=== PATIENT | male | born 1960 | race Caucasian/White ===

== ENCOUNTER 2020-03-19 16:50 | Inpatient (IN) | payer SELFPAY ==
[~2020-03-19] VITALS: Ht 182.9 cm; Wt 104.3 kg
[~2020-03-19 16:50] MED LIST: LISINOPRIL2.5 MG PO; METOPROLOL SUCC50 MG PO; METOPROLOL TART50 MG PO; NORCO 10MG-325MG1 EA PO; SOMA350 MG PO
--- OUTSIDE RECORDS SUMMARY | 2020-03-19 16:52 | XMS REPORT ---
Author Author [facility] Organization [facility] Address Unknown Phone Unavailable Care Team Providers Care Rn Clinical Trials Name Role Phone Unavailable Unavailable Payers Payer Name Policy Type Policy Number Effective Date Expiration D ate Problems This patient has no known problems. Allergies, Adverse Reactions, Alerts Allergy Name Allergy Type Status Severity Reaction(s) Onset Date Inacti ve Date Treating Clinician Comments No Known Allergies DA Active U 2015-04-18 00:00:00 Medications This patient has no known medications. Results Test Description Test Time Test Comments Text Results Atomic Results Result Comments - CT L-SPINE W/O CONTRAST 2019-12-16 10:46:00 Name: CAROL TRIMBLE [facility] : 1960 Age/S: 59 / M [address] [facility] Unit #: [id number] Loc: [place] [address] Phys: Sunil Pedro MD Acct: [id number] Dis Date: Status: REG ER PHONE #: [phone] Exam Date: 12/16/2019 0955 FAX #: [phone] Reason: trauma, pain EXAMS: CPT CODE: [id number] CT L-SPINE W/O CONTRAST 73181 HISTORY: trauma, pain TECHNIQUE: 2.[address] of the lumbar spine with coronal and sagittal reformatting. Automated exposure control for dose reduction. COMPARISON: None FINDINGS: No acute fracture. No subluxation. Vertebral body alignment is satisfactory. Vertebral body heights are preserved. Intervertebral disc heights are preserved. Small vertebral body osteophytes are seen throughout the visualized spine. No prevertebral or paraspinal soft tissue abnormality. Prior cholecystectomy. Mild calcifications are present in the abdominal aorta and iliac arteries T12-L1: No disc bulge or protrusion. No cental canal or foraminal stenosis L1-L2: No disc bulge or protrusion. No cental canal or foraminal stenosis L2-L3: No disc bulge or protrusion. No cental canal or foraminal stenosis L3-L4: No disc bulge or protrusion. No cental canal or foraminal stenosis L4-L5: No disc bulge or protrusion. No cental canal or foraminal stenosis L5-S1: No disc bulge or protrusion. No cental canal or foraminal stenosis IMPRESSION: Mild degenerative changes of the lumbar spine but no fracture or malalignment or significant foraminal or central canal stenosis. Location: [facility] PAGE 1 Signed Report (CONTINUED) Name: CAROL TRIMBLE [facility] : 1960 Age/S: 59 / M [address] [facility] Unit #: [id number] Loc: [place] [address] Phys: Sunil Pedro MD Acct: [id number] Dis Date: Status: REG ER PHONE #: [phone] Exam Date: 12/16/2019 0955 FAX #: [phone] Reason: trauma, pain EXAMS: CPT CODE: [id number] CT L-SPINE W/O CONTRAST 04199 <Continued> at 1046 Reported and signed by: Dariusz Neal MD CC: Sunil Pedro MD; Cheryl Armijo Technologist:KASIE FERNANDES RT(R),CT CTDI: DLP: Trnscb Date/Time: 12/16/2019 (1046) [email or web address] Orig Print D/T: S: 12/16/2019 (3184) PAGE 2 Signed Report
[2020-03-19] MEDS ORDERED: SODIUM CHLORIDE 0.9% 1000ML 1,000 ML IV STA (17:02)
[2020-03-19] MEDS ORDERED: ONDANSETRON HCL INJ 2MG/ML 2ML 2 MG/ML VIAL IV STA (17:02)
[2020-03-19] MEDS ORDERED: HYDRALAZINE HCL 20 MG/ML VIAL IV STA (17:29)
[2020-03-19] MEDS ORDERED: HYDROCODONE/APAP 10MG-325MG TAB PO ONE (17:30)
[2020-03-19] MEDS: PIPER-TAZ 3.375 GM 50 ML IV SCH ×2 (17:41→23:30)
[2020-03-19 17:45] LABS: BASOPHILS # (AUTO) 0.1 (0.0-0.1); BASOPHILS % 1.5 % (0.0-1.0); EOSINOPHILS # (AUTO) 0.2 (0.0-0.4); HEMOGLOBIN 16.5 g/dL (14.0-18.0); LYMPHOCYTES # (AUTO) 1.2 (1.0-3.2); LYMPHOCYTES % 13.7 % (18.0-39.1); MEAN CORPUSCULAR HEMOGLOBIN 30.8 pg (28-32); MEAN CORPUSCULAR HGB CONC 33.7 g/dL (31-35); MEAN CORPUSCULAR VOLUME 91.4 fL (81-99); MONOCYTES # (AUTO) 0.6 (0.2-0.8); MONOCYTES % 6.4 % (4.4-11.3); NEUTROPHILS # (AUTO) 6.8 (2.1-6.9); NEUTROPHILS % 76.1 % (38.7-80.0); PLATELET COUNT 135 x10e3/uL (140-360); RED BLOOD COUNT 5.36 x10e6/uL (4.3-5.7); RED CELL DISTRIBUTION WIDTH 14.7 % (11.7-14.4)
[2020-03-19] MEDS ORDERED: TETANUS/DIPHTHERIA TOX ADULT 0.5 ML SYR IM ONE (17:45)
[2020-03-19 17:48] LABS: CLARITY,URINE SL CLOUDY (CLEAR); COLOR,URINE ORANGE (YELLOW)
[2020-03-19 17:52] LABS: BILIRUBIN,URINE MODERATE (NEGATIVE); KETONES,URINE NEGATIVE (NEGATIVE); LEUKOCYTE ESTERASE ,URINE NEGATIVE (NEGATIVE); NITRITE,URINE POSITIVE (NEGATIVE); PROTEIN,URINE DIPSTICK 1+ (NEGATIVE); URINE UROBILINOGEN 0.2 mg/dL (0.2 - 1)
[2020-03-19 17:53] LABS: AMORPHOUS SEDIMENT,URINE FEW (FEW); AMPHETAMINES SCREEN,URINE POSITIVE (NEGATIVE); BACTERIA,URINE MODERATE /HPF; BENZODIAZEPINES SCREEN,URINE POSITIVE (NEGATIVE); EPITHELIAL CELLS,URINE FEW /LPF; MUCUS,URINE MODERATE (RARE); PHENCYCLIDINE SCREEN,URINE NEGATIVE (NEGATIVE); WBC,URINE (MAN) 0-5 /HPF (0-5)
[2020-03-19 18:02] LABS: INR 1.15; PROTHROMBIN TIME 15.4 seconds (11.9-14.5)
[2020-03-19 18:03] LABS: PARTIAL THROMBOPLASTIN TIME 32.6 seconds (23.8-35.5)
[2020-03-19 18:05] LABS: ALANINE AMINOTRANSFERASE 31 IU/L (0-55); ALBUMIN/GLOBULIN RATIO 0.6 (0.8-2.0); ALKALINE PHOSPHATASE 453 IU/L (40-150); ANION GAP 12.3 mmol/L (8-16); BLOOD UREA NITROGEN 9 mg/dL (7-26); BUN/CREATININE RATIO 12 (6-25); CALCIUM 9.3 mg/dL (8.4-10.2); CARBON DIOXIDE 24 mmol/L (22-29); CHLORIDE 105 mmol/L (98-107); CREATINE KINASE 73 IU/L (30-200); CREATININE, SERUM 0.77 mg/dL (0.72-1.25); EST GLOMERULAR FILTRATION RATE > 60 ML/MIN (60-); GLUCOSE 113 mg/dL (74-118); POTASSIUM 4.3 mmol/L (3.5-5.1); SODIUM 137 mmol/L (136-145)
--- NOTE | 2020-03-19 18:13 | Diagnostic Imaging Report ---
EXAMINATION: CHEST SINGLE (PORTABLE) COMPARISON: Chest x-ray 10/30/2013 INDICATION: Foot infection ^LE CELLULITIS, O2 SAT 94% SMOKER ^20200319 ^1739 DISCUSSION: Frontal view of the chest obtained at 1744 hours. HEART AND MEDIASTINUM: Stable cardiomegaly. No vascular congestion. LINES: None. LUNGS: The lungs are well inflated and clear. No pneumonia or pulmonary edema. PLEURA: No pleural effusion or pneumothorax. BONES AND SOFT TISSUES: No focal osseous lesion. The soft tissues are normal. IMPRESSION: Stable cardiomegaly. No evidence of CHF. No acute cardiopulmonary process. Signed by: Dr. Hood Garcia MD on 03/19/2020 6:10 PM
[2020-03-19] MEDS ORDERED: ONDANSETRON HCL INJ 2MG/ML 2ML 2 MG/ML VIAL IV PRN (18:15)
[2020-03-19] MEDS ORDERED: HYDROCODONE/APAP 10MG-325MG TAB PO PRN (18:15)
--- NOTE | 2020-03-19 18:19 | Diagnostic Imaging Report ---
Foot complete CPT code: 49876 Indication: infection ^LE CELLULITIS, O2 SAT 94% SMOKER ^20200319 ^0172 Technique: A.P., oblique and lateral views of the left foot obtained. Comparison: none. Findings: Calcaneus is intact with tiny posterior or plantar spur. The midfoot is intact with mild degenerative changes. No evidence of displaced fracture or dislocation involving any of the digits. Hallux valgus. No focal demineralization or periosteal new bone formation. No radiopaque foreign bodies in the soft tissues. IMPRESSION: No radiographic evidence of osteomyelitis. Degenerative changes as described above. Signed by: Dr. Hood Garcia MD on 03/19/2020 6:16 PM
[2020-03-19] MEDS ORDERED: VANCOMYCIN 1GM/NS 250 ML 250 ML IV ONE (18:30)
[2020-03-19] MEDS: SODIUM CHLORIDE 0.9% 1000ML 1,000 ML IV SCH (18:58)
[2020-03-19 20:30] VITALS: BP 188/101
--- NOTE | 2020-03-19 20:30 | NUR ---
Pt arrived from ED as a new admit with diagnosis of left foot cellulitis, drug abuse, and elevated bilirubin. Pt alert and oriented x3. Ambulatory in room prn. Notable dried skin tears and scratches on left buck and left foot (dorsal side). Pt c/o frequent pain on left foot. Pt will be medicated accordingly. BP elevated (188/101) and will be medicate with prn Hydralazine. On IVF (NS at 100ml/hr) and IV antibiotic. Call rose within reach. Will monitor closely.
[2020-03-19] MEDS: HYDRALAZINE HCL 20 MG/ML VIAL IV PRN (20:35)
[2020-03-19 21:00] VITALS: BP 188/101
[2020-03-19 22:00] VITALS: BP 188/101
[2020-03-19] MEDS ORDERED: ACETAMINOPHEN 325 MG TAB PO PRN (22:00)
[2020-03-19] MEDS: HYDROCODONE/APAP 10MG-325MG TAB PO PRN (22:09)
[2020-03-19] MEDS ORDERED: CIPRO500 MG PO (23:19)
[2020-03-19] MEDS ORDERED: ASPIRIN81 MG PO (23:19)
[2020-03-19] MEDS ORDERED: IBUPROFEN400 MG PO (23:19)
[2020-03-19] MEDS ORDERED: LISINOPRIL10 MG PO (23:19)
[2020-03-19] MEDS ORDERED: DOXYCYCLINE HY100 MG PO (23:19)
[2020-03-20] VITALS (7 sets, daily range): BP systolic 130–161; BP diastolic 73–89
[2020-03-20] MEDS: SODIUM CHLORIDE 0.9% 1000ML 1,000 ML IV SCH (04:15)
[2020-03-20] MEDS: HYDROCODONE/APAP 10MG-325MG TAB PO PRN ×4 (04:22→21:20)
[2020-03-20] MEDS: VANCOMYCIN 1GM/NS 250 ML 250 ML IV SCH ×2 (04:25→16:36)
[2020-03-20] MEDS: PIPER-TAZ 3.375 GM 50 ML IV SCH (05:35)
[2020-03-20 06:51] LABS: BASOPHILS # (AUTO) 0.1 (0.0-0.1); EOSINOPHILS # (AUTO) 0.2 (0.0-0.4); EOSINOPHILS % 2.6 % (0.0-6.0); HEMATOCRIT 43.6 % (38.2-49.6); HEMOGLOBIN 14.5 g/dL (14.0-18.0); LYMPHOCYTES # (AUTO) 1.4 (1.0-3.2); LYMPHOCYTES % 17.1 % (18.0-39.1); MEAN CORPUSCULAR HEMOGLOBIN 30.9 pg (28-32); MEAN CORPUSCULAR HGB CONC 33.3 g/dL (31-35); MONOCYTES # (AUTO) 0.7 (0.2-0.8); MONOCYTES % 9.3 % (4.4-11.3); NEUTROPHILS # (AUTO) 5.5 (2.1-6.9); NEUTROPHILS % 69.6 % (38.7-80.0); PLATELET COUNT 107 x10e3/uL (140-360); RED BLOOD COUNT 4.69 x10e6/uL (4.3-5.7); RED CELL DISTRIBUTION WIDTH 14.9 % (11.7-14.4)
[2020-03-20 07:16] LABS: ALANINE AMINOTRANSFERASE 27 IU/L (0-55); ALBUMIN 2.4 g/dL (3.5-5.0); ALBUMIN/GLOBULIN RATIO 0.6 (0.8-2.0); ALKALINE PHOSPHATASE 359 IU/L (40-150); ANION GAP 9.8 mmol/L (8-16); BLOOD UREA NITROGEN 11 mg/dL (7-26); BUN/CREATININE RATIO 15 (6-25); CALCIUM 8.2 mg/dL (8.4-10.2); CARBON DIOXIDE 23 mmol/L (22-29); CHLORIDE 109 mmol/L (98-107); CREATININE, SERUM 0.72 mg/dL (0.72-1.25); EST GLOMERULAR FILTRATION RATE > 60 ML/MIN (60-); GLUCOSE 92 mg/dL (74-118); POTASSIUM 3.8 mmol/L (3.5-5.1); SODIUM 138 mmol/L (136-145)
[2020-03-20 07:40] LABS: CREATINE KINASE MB 2.6 ng/mL (0-5.0)
[2020-03-20] MEDS ORDERED: CARISOPRODOL 350 MG TAB PO PRN (10:00)
--- NOTE | 2020-03-20 10:36 | History and Physical ---
CHIEF COMPLAINT: Worsening left foot pain. HISTORY OF PRESENT ILLNESS: This is a 59-year-old white man, who presents to [facility] with 1-week history of worsening left foot redness and pain. The patient apparently was treated as an outpatient with oral ciprofloxacin, doxycycline by his primary care physician, namely Dr. Cheryl Renae. The patient states he did not improve with the outpatient oral antibiotics. The patient does state that ibuprofen 800 mg caused him experienced significant amount of dyspepsia and abdominal pain. In the emergency room, the patient was found to have an elevated total bilirubin of 2.3 with an AST and ALT of 72 and 31 respectively and alkaline phosphatase level of 453. The patient has a known history of alcoholic liver cirrhosis. The patient states that abstinence from alcohol use since 2008. He does smoke tobacco. Urine toxicology in the emergency room was positive for amphetamines and benzodiazepines. Urinalysis in the emergency room reveals slightly cloudy orange urine, 1+ protein, positive nitrite, moderate bacteria, moderate mucus, but only 0-5 white blood cells per high-power field. The patient's white blood cell count on admission was 8,800 with 76% segmented neutrophils. White blood cell count today 7,900 with 69% segmented neutrophils. The patient had a chest film performed in the emergency room, which showed cardiomegaly, otherwise unremarkable. The patient had a left foot x-ray performed in the emergency room, which did not reveal any evidence of osteomyelitis, but did reveal degenerative changes. Most notably, was found to have significant amount of hallux valgus. REVIEW OF SYSTEMS: GENERAL: Weight is stable. No fever or chills. HEENT: No headaches. No visual changes. CARDIOVASCULAR/RESPIRATORY: No chest pain. No short of breath, or cough. GI: The patient has cirrhosis. Denies abdominal pain, except when took ibuprofen. Denies any melena or hematochezia. : States that he urinates frequently, particularly at night, but denies any UTI symptoms. He notes urinary hesitancy with weak urinary stream. NEUROMUSCULAR: Complains extreme pain in the left foot particularly the left metatarsal head area. ALLERGIES: NO KNOWN DRUG ALLERGIES. PAST MEDICAL HISTORY: 1. Tobacco abuse. 2. Alcoholism (abstinence since 2008). 3. Alcoholic liver cirrhosis. 4. Hypertensive heart disease. 5. Substance abuse. 6. Chronic diastolic congestive heart failure. 7. Chronic back pain. MEDICATIONS: 1. Aspirin 81 mg daily. 2. Carisoprodol 350 mg t.i.d. p.r.n., back spasms. 3. Ciprofloxacin 500 mg b.i.d. 4. Doxycycline 100 b.i.d. 5. Ibuprofen 800 mg q.4 hours p.r.n. pain. (The patient cannot tolerate this medication). 6. Lisinopril 20 mg daily. 7. Metoprolol tartrate 50 mg b.i.d. FAMILY HISTORY: Noncontributory. SOCIAL HISTORY: and lives with his . 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 Smokes tobacco. The patient was a heavy alcohol drinker, but abstinent since in 2008. SURGICAL HISTORY: 1. Exploratory laparotomy because of perforated appendicitis causing peritonitis. 2. Laparoscopic cholecystectomy. PHYSICAL EXAMINATION: GENERAL: He is awake, alert, and fully oriented. He is pleasant. VITAL SIGNS: Height is 6 feet 0 inches, weight is 230 pounds, BMI 31. Blood pressure is 130/84, pulse 58, respiratory rate 18, temperature 98.3, and oxygen saturation 98% on room air. INTEGUMENT: Skin is warm and dry. No pallor, jaundice, or diaphoresis. HEENT: Anicteric sclerae. Moist mucous membranes. The patient has a hoarse smoker's voice. NECK: Supple. CARDIOVASCULAR: Distant heart sounds. Regular rate and rhythm. LUNGS: No rales, no rhonchi, no wheezes. ABDOMEN: Obese. Benign. EXTREMITIES: The patient has obvious bunions in the bilateral feet significant amount. The patient has pronounced left hallux valgus. His left foot is erythematous. It is warm and extremely tender to touch. NEUROLOGICAL: Intact. No gross focal deficits appreciated. DIAGNOSES: 1. Left foot cellulitis. 2. Left 1st metatarsal head inflammation, possible gout. 3. Alcoholic liver cirrhosis. 4. Chronic alcoholism (abstinence since 2008). 5. Tobacco abuse. 6. Chronic diastolic congestive heart failure. 7. Hypertensive heart disease. PLAN: 1. Highly recommend tobacco cessation. 2. Pain control. 3. We will check serum uric acid level since the patient may have acute gouty arthritis. 4. Discontinue telemetry. 5. Discontinue intravenous fluids. 6. Gentle pain control with oral hydrocodone. 7. Continue intravenous antibiotics at this time. I spent 45 minutes in the care of this patient. MD ANALI Angeles/MARCO /[id number] IRINEO
[2020-03-20] MEDS: CEFTRIAXONE SOD 1 GM/NS 50 ML 50 ML IV SCH ×2 (10:38→21:20)
--- NOTE | 2020-03-20 11:47 | Diagnostic Imaging Report ---
EXAM: Right Upper Quadrant Ultrasound INDICATION: ^OBSTRUCTIVE JAUNDICE ^20200320 ^1040 ^Y COMPARISON: None. TECHNIQUE: Transverse and longitudinal images of the right upper abdomen were obtained. FINDINGS: Liver: Size: 13.6 cm in the right midclavicular line, normal Appearance: Coarse echotexture, nodular contour Mass: No focal masses Gallbladder: Surgically absent. Bile Ducts: Intrahepatic Ducts: No dilatation Extrahepatic Ducts: Common bile duct measures 0.6 cm, borderline dilatation, likely due to postcholecystectomy reservoir effect. Pancreas: Not well-visualized. Right Kidney: Size: 11.3 cm Echogenicity: Normal Parenchymal thickness: Normal Collecting system: No hydronephrosis Stones: None Cyst/Mass: None Vessels: Aorta: Limited visualization. Inferior Vena Cava: Limited visualization. Main Portal Vein: 1 cm, normal size with hepatopetal flow. Free Fluid: Trace perihepatic ascites. IMPRESSION: Cirrhotic liver with trace perihepatic ascites. Status post cholecystectomy. Borderline dilatation of common bile duct, probably due to postcholecystectomy reservoir effect. Signed by: Dr. Naseem Hill MD on 03/20/2020 11:44 AM
--- NOTE | 2020-03-20 13:16 | NUR ---
PROVIDED SELF PAY PACKET WITH COMM[employer] WHICH INCLUDES GOLD CARD ASSISTANCE THROUGH [facility] FOR [facility]
[2020-03-20] MEDS: METOPROLOL TARTRATE 50 MG TAB PO SCH (16:36)
[2020-03-20 16:43] LABS: CREATINE KINASE MB 3.2 ng/mL (0-5.0)
[2020-03-21] VITALS (9 sets, daily range): BP systolic 153–186; BP diastolic 73–91
[2020-03-21] MEDS ORDERED: SODIUM CHLORIDE 0.9% 250ML 250 ML ONE (04:28)
[2020-03-21] MEDS: VANCOMYCIN 1GM/NS 250 ML 250 ML IV SCH ×2 (04:31→17:40)
[2020-03-21] MEDS: HYDROCODONE/APAP 10MG-325MG TAB PO PRN ×3 (04:32→19:52)
--- NOTE | 2020-03-21 07:06 | NUR ---
BEDSIDE SHIFT REPORT RECEIVED FROM PM NURSE. PT AWAKE, ALERT, ORIENTED, NO SIGNS OF DISTRESS.
[2020-03-21 07:08] LABS: BASOPHILS # (AUTO) 0.1 (0.0-0.1); BASOPHILS % 1.7 % (0.0-1.0); EOSINOPHILS # (AUTO) 0.2 (0.0-0.4); HEMATOCRIT 44.9 % (38.2-49.6); HEMOGLOBIN 14.9 g/dL (14.0-18.0); LYMPHOCYTES # (AUTO) 1.3 (1.0-3.2); LYMPHOCYTES % 26.5 % (18.0-39.1); MEAN CORPUSCULAR HEMOGLOBIN 30.8 pg (28-32); MEAN CORPUSCULAR HGB CONC 33.2 g/dL (31-35); MEAN CORPUSCULAR VOLUME 92.8 fL (81-99); MONOCYTES # (AUTO) 0.4 (0.2-0.8); NEUTROPHILS # (AUTO) 2.8 (2.1-6.9); NEUTROPHILS % 58.6 % (38.7-80.0); PLATELET COUNT 75 x10e3/uL (140-360); RED BLOOD COUNT 4.84 x10e6/uL (4.3-5.7); RED CELL DISTRIBUTION WIDTH 14.8 % (11.7-14.4)
[2020-03-21 07:09] LABS: ALANINE AMINOTRANSFERASE 28 IU/L (0-55); ALBUMIN 2.5 g/dL (3.5-5.0); ALBUMIN/GLOBULIN RATIO 0.6 (0.8-2.0); ALKALINE PHOSPHATASE 339 IU/L (40-150); BLOOD UREA NITROGEN 12 mg/dL (7-26); BUN/CREATININE RATIO 19 (6-25); CALCIUM 8.5 mg/dL (8.4-10.2); CARBON DIOXIDE 22 mmol/L (22-29); CHLORIDE 109 mmol/L (98-107); CREATININE, SERUM 0.63 mg/dL (0.72-1.25); EST GLOMERULAR FILTRATION RATE > 60 ML/MIN (60-); GLUCOSE 82 mg/dL (74-118); SODIUM 138 mmol/L (136-145)
[2020-03-21 07:52] LABS: PLATELET MORPHOLOGY COMMENT NORMAL; RBC MORPHOLOGY COMMENT NORMAL
[2020-03-21 07:53] LABS: PLATELET ESTIMATE MODERATELY DECREASED
[2020-03-21] MEDS: ASPIRIN 81 MG CHEW TAB PO SCH (08:43)
[2020-03-21] MEDS: LISINOPRIL 10 MG TAB PO SCH (08:44)
[2020-03-21] MEDS: METOPROLOL TARTRATE 50 MG TAB PO SCH ×2 (08:44→17:00)
[2020-03-21] MEDS: CEFTRIAXONE SOD 1 GM/NS 50 ML 50 ML IV SCH ×2 (08:45→21:10)
--- NOTE | 2020-03-21 09:55 | Progress Note ---
DATE: 03/21/2020 CHIEF COMPLAINT/HISTORY OF PRESENT ILLNESS: This is a 59-year-old white man, whose primary treating diagnosis is a left foot cellulitis. Yesterday, the patient states his left foot is less painful and swollen. Yesterday, the patient was found to have a serum uric acid level of 4.1 mg/dL. Today, the patient's AST and ALT were 61 and 28 respectively. The patient's alkaline phosphatase is now 339, which is lowering. The patient's total bilirubin is now 1.8, it got as high as 2.8. The patient's albumin was 2.5. The patient underwent a liver ultrasound yesterday, which revealed a cirrhotic liver with trace perihepatic ascites. REVIEW OF SYSTEMS: As per HPI. PHYSICAL EXAMINATION: GENERAL: He is awake, alert, and fully oriented, in no distress, very pleasant, cooperative to exam. VITAL SIGNS: Height 6 feet 0 inches, weight is 230 pounds, BMI 31. Blood pressure is 160/80, pulse 52, respiratory rate, temperature 98.0, and oxygen saturation 97% on room air. INTEGUMENT: Skin is warm and dry. No pallor, jaundice, or diaphoresis. HEENT: Anterior sclerae with moist mucous membranes. NECK: Supple CARDIOVASCULAR: Distant heart sounds. Bradycardic rate a regular rhythm. LUNGS: No rales. No rhonchi. ABDOMEN: Benign. Normal bowel sounds. Nontender. EXTREMITIES: Patient has obvious bunions in the bilateral feet. The patient has pronounced left valgus hallux. His left foot is less erythematous and tender to touch today. The patient has a significant amount of desquamating scale on the dorsal aspect of his left foot. NEUROLOGIC: Intact. No gross focal deficits appreciated. DIAGNOSES: 1. Left foot cellulitis, resolving. 2. Alcoholic liver cirrhosis. 3. Leukopenia and pancytopenia secondary to liver cirrhosis. 4. Chronic alcoholism (abstinence since 2008). 5. Tobacco abuse. 6. Chronic diastolic congestive heart failure. 7. Hypertensive heart disease. 8. Urinary tract infection/prostatitis. PLAN: 1. Continue intravenous vancomycin and ceftriaxone for patient's left foot cellulitis. 2. Continue intravenous ceftriaxone for patient's urinary tract infection. 3. Commend patient for his willingness not to resume alcohol drinking. 4. Highly recommend tobacco cessation. 5. We will order a nicotine patch today to tailor helper in patient's tobacco cessation. 6. We will order ammonia lactate 12% lotion to be applied to the patient's left foot twice a day. 7. I spent 30 minutes in the care of this patient. 8. Discharge planning for tomorrow Sunday, march 22, 2020. MD ANALI Angeles/MARCO /[id number] MTDD
[2020-03-21] MEDS: AMMONIUM LACTATE 12% LOTION 225GM BTL TOP SCH ×2 (10:45→17:40)
[2020-03-21] MEDS: NICOTINE 21 MG/EA PATCH TOP SCH (10:45)
[2020-03-21] MEDS ORDERED: ONDANSETRON HCL 4 MG ORAL DISINTEGRATING TAB PO PRN (14:30)
--- NOTE | 2020-03-21 17:08 | NUR ---
PT'S HR NOTED TO STILL BE IN THE 40'S; PAGING DR. XIE REGARDING PT'S CURRENT DOSE OF METOPROLOL.
--- NOTE | 2020-03-21 17:26 | NUR ---
CALLBACK FROM DR. XIE. HE STATES HOLD PT'S DOSE OF METOPROLOL TODAY AND TOMORROW CHANGE PT'S DOSE FROM BID TO QD.
--- NOTE | 2020-03-21 19:00 | NUR ---
RECEIVED PATIENT IN BEDSIDE REPORT. PATIENT RESTING IN BED AT THIS TIME. PAIN REPORTED. 04/21, WILL MEDICATE. NO S&S OF DISTRESS NOTED. BED LOCKED IN LOWEST POSITION, SIDE RAILS UPX2, CALL LIGHT IN REACH.
--- NOTE | 2020-03-21 21:58 | NUR ---
R AC 18G IV NOTED TO BE TENDER AND LEAKING. REMOVED AT THIS TIME. CATHETER TIP INTACT. PRESSURE DRESSING APPLIED. WARM COMPRESS APPLIED FOR TENDERNESS.
[2020-03-22] VITALS (8 sets, daily range): BP systolic 157–181; BP diastolic 86–96
--- NOTE | 2020-03-22 04:54 | NUR ---
NEW IV OBTAINED TO R UA, 22G. UNABLE TO DRAW BLOOD FOR VANC TROUGH AND AM LABS. 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
[2020-03-22 05:31] LABS: BASOPHILS # (AUTO) 0.1 (0.0-0.1); BASOPHILS % 1.6 % (0.0-1.0); EOSINOPHILS # (AUTO) 0.2 (0.0-0.4); EOSINOPHILS % 4.4 % (0.0-6.0); HEMATOCRIT 42.9 % (38.2-49.6); HEMOGLOBIN 14.5 g/dL (14.0-18.0); LYMPHOCYTES # (AUTO) 1.4 (1.0-3.2); LYMPHOCYTES % 27.6 % (18.0-39.1); MEAN CORPUSCULAR HEMOGLOBIN 30.6 pg (28-32); MEAN CORPUSCULAR HGB CONC 33.8 g/dL (31-35); MEAN CORPUSCULAR VOLUME 90.5 fL (81-99); MONOCYTES # (AUTO) 0.6 (0.2-0.8); MONOCYTES % 11.9 % (4.4-11.3); NEUTROPHILS # (AUTO) 2.7 (2.1-6.9); NEUTROPHILS % 54.3 % (38.7-80.0); PLATELET COUNT 82 x10e3/uL (140-360); RED BLOOD COUNT 4.74 x10e6/uL (4.3-5.7); RED CELL DISTRIBUTION WIDTH 14.4 % (11.7-14.4)
[2020-03-22 05:53] LABS: ALANINE AMINOTRANSFERASE 28 IU/L (0-55); ALBUMIN 2.5 g/dL (3.5-5.0); ALBUMIN/GLOBULIN RATIO 0.6 (0.8-2.0); ALKALINE PHOSPHATASE 344 IU/L (40-150); ANION GAP 10.6 mmol/L (8-16); BLOOD UREA NITROGEN 11 mg/dL (7-26); BUN/CREATININE RATIO 16 (6-25); CALCIUM 8.4 mg/dL (8.4-10.2); CARBON DIOXIDE 26 mmol/L (22-29); CHLORIDE 105 mmol/L (98-107); CREATININE, SERUM 0.67 mg/dL (0.72-1.25); EST GLOMERULAR FILTRATION RATE > 60 ML/MIN (60-); GLUCOSE 87 mg/dL (74-118); POTASSIUM 3.6 mmol/L (3.5-5.1); SODIUM 138 mmol/L (136-145)
[2020-03-22] MEDS: HYDRALAZINE HCL 20 MG/ML VIAL IV PRN (05:58)
[2020-03-22] MEDS: VANCOMYCIN 1GM/NS 250 ML 250 ML IV SCH ×2 (06:27→16:00)
[2020-03-22] MEDS ORDERED: SODIUM CHLORIDE 0.9% 250ML 250 ML ONE (06:27)
--- NOTE | 2020-03-22 07:10 | NUR ---
PATIENT IS AWAKE, ALERT, AND IN STABLE CONDITION WITH NO S/S OF RESPIRATORY DISTRESS- NO PAIN VOICED. CALL LIGHT IS WITHIN REACH, PATIENT INSTRUCTED TO CALL FOR ASSISTANCE NEEDED.
[2020-03-22] MEDS: NICOTINE 21 MG/EA PATCH TOP SCH (08:29)
[2020-03-22] MEDS: ASPIRIN 81 MG CHEW TAB PO SCH (08:33)
[2020-03-22] MEDS: LISINOPRIL 10 MG TAB PO SCH (08:34)
[2020-03-22] MEDS: AMMONIUM LACTATE 12% LOTION 225GM BTL TOP SCH ×2 (08:35→16:00)
[2020-03-22] MEDS ORDERED: METOPROLOL TARTRATE 50 MG TAB PO SCH ×2 (09:00→17:00)
[2020-03-22] MEDS: CEFTRIAXONE SOD 1 GM/NS 50 ML 50 ML IV SCH (09:02)
--- NOTE | 2020-03-22 10:02 | NUR ---
Received bedside shift report from nurse. Patient is in stable condition. IV line patent, saline flushed. Call light within reach. Bed in the lowest position.
--- NOTE | 2020-03-22 10:23 | Discharge Summary ---
HOSPITAL COURSE: Mr. Linares is a 59-year-old man with history of alcohol abuse, liver cirrhosis, hypertension, tobacco abuse, and chronic back pain, who was seen in the clinic complaining of left foot edema and erythema with some skin lesion. At that time, he did not want to come to the emergency room, so he was given p.o. antibiotics. Later on, he did not feel good and the pain was worse, so he decided to come to the emergency room. He was seen by Dr. Canada, who was covering for me. He was started on IV antibiotics, wound care. PHYSICAL EXAMINATION: GENERAL: Today, he is awake and alert. He is feeling better. He wants to go home. VITAL SIGNS: Temperature is 97.6, blood pressure 164/89. HEART: Regular rate. LUNGS: Clear to auscultation. ABDOMEN: Soft. EXTREMITIES: In the left lower extremity, the edema went down, the erythema went down. He still has like healing lesion on top of the left foot. Positive also for tinea pedis between his toes. LABORATORY DATA: On the blood work; white count 4.97, hemoglobin 14.5, hematocrit 42.9, potassium 3.6, creatinine 0.67, glucose 87. Pereira virus negative. Toxicology shows amphetamines and benzodiazepines. Urine culture and blood culture so far negative. Liver ultrasound shows cirrhotic liver, status post cholecystectomy. Foot x-ray shows no evidence of osteomyelitis. Chest x-ray shows stable cardiomegaly. No evidence of CHF. ASSESSMENT: 1. Left foot cellulitis. 2. Tinea pedis. 3. Alcohol liver cirrhosis. 4. History of alcohol abuse. 5. Tobacco abuse. 6. Hypertensive heart disease. PLAN: At present time is to recommend tobacco cessation. Continue pain control. Continue IV antibiotics. Continue wound care. Infectious Disease consult with Dr. Mccallum for further recommendation of antibiotics and possible discharge, since the patient wants to go home today. Please see home medication reconciliation list. All this was discussed with the patient. All questions were answered to satisfaction. If he gets clear by Infectious Disease, he may go home on p.o. antibiotics and follow up with me as an outpatient. Cheryl Renae MD ERROL/MARCO /[id number]
--- NOTE | 2020-03-22 16:00 | NUR ---
DR. GARNICA ROUNDING ON PATIENT, CLEARANCE FOR DISCHARGE OBTAINED, PATIENT CAN BE DCD FROM ID STANDPOINT. PRESCRIPTIONS ON CHART.
--- NOTE | 2020-03-22 16:01 | NUR ---
PAGED DR. BARAJAS FOR DC ORDER.
[2020-03-22] MEDS ORDERED: CIPRO500 MG PO (16:10)
[2020-03-22] MEDS ORDERED: DOXYCYCLINE HY100 MG PO (16:10)
--- NOTE | 2020-03-22 16:27 | NUR ---
BP IS 181/91 UPON ASSESSMENT, RE-ASSESSED MANUALLY AND IT WAS 174/92. PATIENT STATES HE TAKES METOPROLOL TWICE A DAY NOT ONCE A DAY. PAGED DR. BARAJAS FOR ORDERS.
--- NOTE | 2020-03-22 16:35 | NUR ---
SPOKE TO DR. BARAJAS, PER MD GIVE SECOND DOSE OF METOPROLOL NOW.
--- NOTE | 2020-03-22 18:30 | NUR ---
RECEIVED DISCHARGE ORDER FROM MD. PATIENT IS IN STABLE CONDITION. IV LINE TO RIGHT UPPER ARM DISCONTINUED WITH TIP INTACT, PRESSURE APPLIED TO SITE, NO BLEEDING NOTED. DISCHARGE TEACHING PROVIDED TO PATIENT, HE VERBALIZED UNDERSTANDING. DISCHARGE FOLDER WITH PAPERWORK AND PRESCRIPTIONS ON HAND. PATIENT ACCOMPANIED TO PRIVATE AUTO VIA WHEELCHAIR BY STAFF.
--- NOTE | 2020-03-22 20:56 | Consultation ---
DATE OF CONSULTATION: REASON FOR CONSULTATION: Mr. Linares comes in with redness of the leg. HISTORY OF PRESENT ILLNESS: This patient who is a 59-year-old, who comes into [facility] with one-week history of worsening left leg redness. He took oral antibiotic without any improvement. He comes in to start IV antibiotic. He is feeling better, but he would like to go home. PAST MEDICAL HISTORY: The patient does have history of smoking, alcoholism that he quit in 2008. Liver cirrhosis, congestive heart failure, heart disease, chronic diastolic heart failure, chronic back pain, and osteoarthritis. PAST SURGICAL HISTORY: As above. He had history of exploratory laparotomy, history of appendicitis, history of cholecystectomy. SOCIAL HISTORY: There is no smoking. Currently, no drug abuse or alcohol abuse. FAMILY HISTORY: Hypertension. HOME MEDICATIONS: Aspirin and ciprofloxacin. REVIEW OF SYSTEMS: HEENT: Negative. PULMONARY: Negative. CARDIAC: Negative. : Negative. LABORATORY DATA: Reviewed. Blood cultures are negative. White count was 4.9, hemoglobin 14. The patient would like to go home. His drug was positive for amphetamine and benzodiazepine. PHYSICAL EXAMINATION: GENERAL: He is currently alert, oriented, does not seem in acute distress. VITAL SIGNS: Stable. Afebrile. HEENT: He is not icteric. NECK: Supple. CHEST: Clear. SKIN: Warm, soft. The foot has significant improvement since yesterday. There is still some redness. The skin seemed to be dry with itching bellamy present. IMPRESSION: 1. cellulitis of the foot, improving. 2. Former drug abuse. 3. History of smoking. 4. History of liver disease. From Infectious Disease point of view, we can switch him to local hydrocortisone, apply twice a day. To discharge home with oral doxycycline and Cipro. Keep elevated, must quit drinking. We will follow. MD VALARIE Hobson/MARCO /[id number]
== END 2020-03-22 18:30 | disposition home or self-care (01) | DRG 603 ==
LOC: ER 16:50 → ERHOLD 18:14 → MED/SURG3 20:53
PROVIDERS: ADMIT Internal Medicine; ATTEND Internal Medicine
DX: L03.116 Cellulitis of left lower limb (principal); N39.0 Urinary tract infection, site not specified; I50.32 Chronic diastolic (congestive) heart failure; F17.210 Nicotine dependence, cigarettes, uncomplicated; M54.9 Dorsalgia, unspecified; Z82.49 Family history of ischemic heart disease and other diseases of the circulatory system; K70.31 Alcoholic cirrhosis of liver with ascites; F10.21 Alcohol dependence, in remission; M20.12 Hallux valgus (acquired), left foot; I11.0 Hypertensive heart disease with heart failure; Z79.82 Long term (current) use of aspirin; Z90.49 Acquired absence of other specified parts of digestive tract; M10.9 Gout, unspecified; M21.612 Bunion of left foot; M21.611 Bunion of right foot; B35.3 Tinea pedis
CPT/HCPCS: 36415; 71045; 76705; 80053; 80202; 80307; 81001; 82550; 82553; 82948; 84484; 84550; 85025; 85610; 85730; 87040; 87086; 87635; 90714; 93005; 99251; 99284; J0360; J0696; J2405; J2543; J3370; J7030; J7050

== ENCOUNTER 2020-07-02 17:34 | Inpatient (IN) | payer SELFPAY ==
[~2020-07-02] VITALS: Ht 182.9 cm; Wt 96.6 kg
[~2020-07-02 17:34] MED LIST changes: +ASPIRIN81 MG PO; +CIPRO500 MG PO; +DOXYCYCLINE HY100 MG PO; +FENTANYL CITRATE/PF 100MCG/2 ML INJ ONE; +IBUPROFEN400 MG PO; +LISINOPRIL10 MG PO; +MIDAZOLAM HCL 2 MG/2 ML VIAL ONE
--- NOTE | 2020-07-02 17:56 | NUR ---
PT STATES HE HAS HAD AN INGUINAL HERNIA TO THE RIGHT GROIN FOR THE PAST WEEK. PT STATES HE HAS A HISTORY OF INGUINAL HERNIAS TO THE RIGHT GROIN WELL.
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
[2020-07-02] MEDS ORDERED: ONDANSETRON HCL INJ 2MG/ML 2ML 2 MG/ML VIAL IV STA ×2 (18:07→20:51)
[2020-07-02] MEDS ORDERED: MORPHINE SULFATE INJ 4 MG/ML INJ 1ML IV STA ×2 (18:07→20:51)
--- NOTE | 2020-07-02 18:18 | NUR ---
PT INSTRUTED THAT MD NEEDS URINE SAMPLE FOR LAB WORK. PT STATES HE IS UNABLE TO URINATE AT THIS TIME. DISCUSSED STRAIGHT CATH WITH PATIENT. PT STATES HE DOES NOT WISH TO BE STRAIGHT CATHED. PT STATES HE WILL CONTINUE TO TRY. PT PROVIDED WITH URINAL.
[2020-07-02 18:20] LABS: BASOPHILS # (AUTO) 0.1 (0.0-0.1); BASOPHILS % 0.6 % (0.0-1.0); EOSINOPHILS # (AUTO) 0.2 (0.0-0.4); EOSINOPHILS % 2.1 % (0.0-6.0); HEMATOCRIT 42.6 % (38.2-49.6); HEMOGLOBIN 14.2 g/dL (14.0-18.0); LYMPHOCYTES # (AUTO) 1.8 (1.0-3.2); LYMPHOCYTES % 21.9 % (18.0-39.1); MEAN CORPUSCULAR HEMOGLOBIN 30.7 pg (28-32); MEAN CORPUSCULAR HGB CONC 33.3 g/dL (31-35); MONOCYTES # (AUTO) 1.1 (0.2-0.8); MONOCYTES % 13.2 % (4.4-11.3); PLATELET COUNT 71 x10e3/uL (140-360); RED BLOOD COUNT 4.63 x10e6/uL (4.3-5.7)
[2020-07-02] MEDS ORDERED: DIATRIZOATE MEGL/DIATRIZOA SOD 30 ML BTL PO ONE (18:20)
[2020-07-02 18:34] LABS: ALANINE AMINOTRANSFERASE 39 IU/L (0-55); ALBUMIN 2.5 g/dL (3.5-5.0); ALBUMIN/GLOBULIN RATIO 0.5 (0.8-2.0); ALKALINE PHOSPHATASE 405 IU/L (40-150); ANION GAP 10.9 mmol/L (8-16); BLOOD UREA NITROGEN 10 mg/dL (7-26); BUN/CREATININE RATIO 13 (6-25); CALCIUM 8.2 mg/dL (8.4-10.2); CARBON DIOXIDE 23 mmol/L (22-29); CHLORIDE 106 mmol/L (98-107); CREATININE, SERUM 0.77 mg/dL (0.72-1.25); EST GLOMERULAR FILTRATION RATE > 60 ML/MIN (60-); GLUCOSE 96 mg/dL (74-118); POTASSIUM 3.9 mmol/L (3.5-5.1); SODIUM 136 mmol/L (136-145)
--- NOTE | 2020-07-02 18:42 | NUR ---
PATIENT'S : BEATRIZ [phone]. PT'S ASKS TO BE CALLED WITH [facility]PD[facility] AN UPON DC SO SHE CAN MANAGER MEDIA RELATIONS PATIENT (THEY LIE ABOUT [address]).
--- NOTE | 2020-07-02 19:11 | NUR ---
care assumed at this time
--- OUTSIDE RECORDS SUMMARY | 2020-07-02 19:35 | XMS REPORT | Continuity of Care Document ---
Author Author [facility] t Organization [facility] Address [address] [place] [address] Phone Unavailable Care Team Providers Care Package Worker Name Role Phone MD SHAY BARAJAS PCP SHAY BARAJAS Attphys Unavailable SHAY BARAJAS Admphys Unavailable Payers Payer Name Policy Type Policy Number Effective Date Expiration Date S ource Problems Condition Name Condition Details Condition Category Status Onset Date Resolution Date Last Treatment Date Treating Clinician Comments Source Chest pain Problem Active [facility] Drug abuse Problem Active [facility] High bilirubin Problem Active [facility] Cellulitis of left foot Problem Active [facility] Hypertension Problem Active [facility] Allergies, Adverse Reactions, Alerts Allergy Name Allergy Type Status Severity Reaction(s) Onset Date Inacti ve Date Treating Clinician Comments Source No Known Allergies DA Active U 2015-04-18 00:00:00 [facility] Social History Social Habit Start Date Stop Date Quantity Comments Source Sex Assigned At 1960 00:00:00 1960 00:00:00 Male [facility] Medications Ordered Medication Name Filled Medication Name Start Date Stop Da te Current Medication? Ordering Clinician Indication Dosage Frequency Signature (SIG) Comments Components Source Lisinopril Lisinopril 2017-02-10 13:50:00 2020-03-19 00:00:00 No 10 Daily [facility] Aspirin Aspirin Yes 81 Daily [facility] Carisoprodol (Soma) 350 Mg TABLET Carisoprodol (Soma) 350 Mg TABLET Yes 350 Three Times A Day as needed for Pain [facility] Ciprofloxacin Hcl (Cipro) 500 Mg TABLET Ciprofloxacin Hcl (C ipro) 500 Mg TABLET Yes 500 Twice A Day [facility] Ciprofloxacin Hcl (Cipro) 500 Mg TABLET Ciprofloxacin Hcl (C ipro) 500 Mg TABLET Yes 500 Twice A Day [facility] Doxycycline Hyclate Doxycycline Hyclate Yes 100 Twice A Day [facility] Doxycycline Hyclate Doxycycline Hyclate Yes 100 Twice A Day [facility] Ibuprofen Ibuprofen Yes 800 Every 4 Hours as nee ded for Pain [facility] Lisinopril Lisinopril Yes 20 Daily [facility] Metoprolol Tartrate Metoprolol Tartrate Yes 50 Twice A Day [facility] Acetaminophen/Hydrocodone Bitart (Loiza 10MG-325MG*) 1 Ea TAB Acetaminophen/Hydrocodone Bitart (Loiza 10MG-325MG*) 1 Ea TAB 2020-03-19 00:00:00 No 10 Four Times Daily as needed for Pain [facility] Lisinopril Lisinopril 2017-02-10 00:00:00 No 20 Lizett ly [facility] Metoprolol Succinate Metoprolol Succinate 2017-02-09 00:00:00 No Twice A Day [facility] Vital Signs Vital Name Observation Time Observation Value Comments Source Body Temperature 2020-03-22 15:46:00 96.7 [degF] [facility] Weight 2020-03-20 09:35:00 230 [lb_av] [facility] BMI (Body Mass Index) 2020-03-20 09:35:00 31.2 kg/m2 [facility] Procedures Procedure Date / Time Performed Performing Clinician Severiano RUSH Liver 2020-03-20 00:00:00 [facility] Plan of Care Planned Activity Planned Date Details Comments Source Instructions Cellulitis [facility] Encounters Start Date/Time End Date/Time Encounter Type Admission Type Attendi [facility] Care Department Encounter ID Source 2020-03-19 18:14:00 2020-03-22 18:30:00 Discharged Inpatient 1 SHAY BARAJAS [facility] [id number] [facility] Results Test Description Test Time Test Comments Results Result Comments Source Capillary blood glucose measurement by glucometer (mas s/volume) 2020-03-22 15:25:00 Test Item Bedside Glucose (test code = 14625-7) 88 70-120 Meter ID: [id number] [facility]wayBlood leukocytes automated count (number/volume)2020-03-22 05:05:00* Test Item Value Reference Range Interpretation Comments White Blood Count (test code = 6690-2) 4.97 4.8-10.8 [facility]way[facility] erythrocytes automated count (number/volume)2020-03-22 05:05:00* Test Item Value Reference Range Interpretation Comments Red Blood Count (test code = 789-8) 4.74 4.3-5.7 [facility]wayBlood hemoglobin measurement (moles/volume)2020-03-22 05:05:00* Test Item Value Reference Range Interpretation Comments Hemoglobin (test code = 38594-8) 14.5 14.0-18.0 [facility] LakewayAutomated blood hematocrit (volume fraction)2020-03-22 05:05:00* Test Item Value Reference Range Interpretation Comments Hematocrit (test code = 4544-3) 42.9 38.2-49.6 [facility] LakewayAutomated erythrocyte mean corpuscular zpidba0658-33-47 05:05:00* Test Item Value Reference Range Interpretation Comments Mean Corpuscular Volume (test code = 787-2) 90.5 81-99 [facility] LakewayAutomated erythrocyte mean corpuscular hemoglobin (mass per erythrocyte)2020-03-22 05:05:00* Test Item Value Reference Range Interpretation Comments Mean Corpuscular Hemoglobin (test code = 785-6) 30.6 28-32 [facility] LakewayAutomated erythrocyte mean corpuscular hemoglobin concentration measurement (mass/volume)2020-03-22 05:05:00* Test Item Value Reference Range Interpretation Comments Mean Corpuscular Hemoglobin Concent (test code = 786-4) 33.8 31-35 [facility] LakewayRDW BbaAs-Pue5003-59-11 05:05:00* Test Item Value Reference Range Interpretation Comments Red Cell Distribution Width (test code = 97284-7) 14.4 11.7 -14.4 [facility] LakewayAutomated blood platelet count (count/volume)2020-03-22 05:05:00* Test Item Value Reference Range Interpretation Comments Platelet Count (test code = 777-3) 82 140-360 [facility] LakewayAutomated blood segmented neutrophil count as percentage of total qyiwecplvc5516-44-17 05:05:00* Test Item Value Reference Range Interpretation Comments Neutrophils (%) (Auto) (test code = 69851-2) 54.3 38.7-80.0 [facility] LakewayAutomated blood lymphocyte count as percentage ot total uypgibiljk5796-38-95 05:05:00* Test Item Value Reference Range Interpretation Comments Lymphocytes (%) (Auto) (test code = 736-9) 27.6 18.0-39.1 [facility] LakewayAutomated blood monocyte count as percentage of total mukuwztojn2989-15-76 05:05:00* Test Item Value Reference Range Interpretation Comments Monocytes (%) (Auto) (test code = 5905-5) 11.9 4.4-11.3 [facility] LakewayAutomated blood eosinophil count as percentage of total dkjspeoytg2903-50-55 05:05:00* Test Item Value Reference Range Interpretation Comments Eosinophils (%) (Auto) (test code = 713-8) 4.4 0.0-6.0 [facility] LakewayAutomated blood basophil count as percentage of total glpbyazymo4847-32-56 05:05:00* Test Item Value Reference Range Interpretation Comments Basophils (%) (Auto) (test code = 706-2) 1.6 0.0-1.0 [facility] LakewayFluoroscopic procedure less than one hour nhzubdfo5898-14-80 05:05:00* Test Item Value Reference Range Interpretation Comments IM GRANULOCYTES % (test code = IM GRANULOCYTES %) 0.2 0.0- 1.0 [facility] LakewayAutomated blood neutrophil count 2020-03-22 05:05:00* Test Item Value Reference Range Interpretation Comments Neutrophils # (Auto) (test code = 751-8) 2.7 2.1-6.9 [facility]wayBlood lymphocytes count (number/volume) 2020-03-22 05:05:00* Test Item Value Reference Range Interpretation Comments Lymphocytes # (Auto) (test code = 39940-1) 1.4 1.0-3.2 [facility]wayB[facility]ent[facility] monocytes automated count (number/volume)2020-03-22 05:05:00* Test Item Value Reference Range Interpretation Comments Monocytes # (Auto) (test code = 742-7) 0.6 0.2-0.8 [facility] LakewayAutomated blood eosinophil count 2020-03-22 05:05:00* Test Item Value Reference Range Interpretation Comments Eosinophils # (Auto) (test code = 711-2) 0.2 0.0-0.4 [facility] LakewayAutomated blood basophil count (count/volume)2020-03-22 05:05:00* Test Item Value Reference Range Interpretation Comments Basophils # (Auto) (test code = 704-7) 0.1 0.0-0.1 [facility] LakewayFluoroscopic procedure less than one hour pdkfrsee4047-08-69 05:05:00* Test Item Value Reference Range Interpretation Comments Absolute Immature Granulocyte (auto (bradford t code = Absolute Immature Granulocyte (auto) 0.01 0-0.1 [facility] plasma sodium measurement (moles/volume)2020-03-22 05:05:00* Test Item Value Reference Range Interpretation Comments Sodium Level (test code = 2951-2) 138 136-145 [facility]villeerum or plasma potassium measurement (moles/volume)2020-03-22 05:05:00* Test Item Value Reference Range Interpretation Comments Potassium Level (test code = 2823-3) 3.6 3.5-5.1 [facility]villeerum or plasma chloride measurement (moles/volume)2020-03-22 05:05:00* Test Item Value Reference Range Interpretation Comments Chloride Level (test code = 2075-0) 105 98-107 [facility]villeerum or plasma carbon dioxide, total measurement (moles/volume)2020-03-22 05:05:00* Test Item Value Reference Range Interpretation Comments Carbon Dioxide Level (test code = 2028-9) 26 22-29 [facility]villeerum or plasma anion tqu1985-63-78 05:05:00* Test Item Value Reference Range Interpretation Comments Anion Gap (test code = 92200-9) 10.6 8-16 [facility]villeerum or plasma urea nitrogen measurement (mass/volume)2020-03-22 05:05:00* Test Item Value Reference Range Interpretation Comments Blood Urea Nitrogen (test code = 3094-0) 11 7-26 [facility]villeerum or plasma creatinine measurement (mass/volume)2020-03-22 05:05:00* Test Item Value Reference Range Interpretation Comments Creatinine (test code = 2160-0) 0.67 0.72-1.25 [facility]villeerum or plasma urea nitrogen/creatinine mass pjwsf5761-10-55 05:05:00* Test Item Value Reference Range Interpretation Comments BUN/Creatinine Ratio (test code = 3097-3) 16 6-25 [facility] LakewayEstimated glomerular filtration rate (GFR) gkfbqmluknatg7894-67-46 05:05:00* Test Item Value Reference Range Interpretation Comments Estimat Glomerular Filtration Rate (test code = 423479520) > 60 >60 Ranges were taken from the National Kidney Disease Education Program and the [facility] Foundation literature.Reference ranges:60 or greater: Iljekz92-93 ( for 3 consecutive months): Chronic kidney disease 15 or less: Kidney failureBaylor Scott & White Medical Center – LakewayGlucose dqpsiyhhluf7053-94-60 05:05:00* Test Item Value Reference Range Interpretation Comments Glucose Level (test code = AIA7159) 87 74-118 [facility]villeerum or plasma calcium measurement (mass/volume)2020-03-22 05:05:00* Test Item Value Reference Range Interpretation Comments Calcium Level (test code = 44284-1) 8.4 8.4-10.2 [facility]villeerum or plasma total bilirubin measurement (mass/volume)2020-03-22 05:05:00* Test Item Value Reference Range Interpretation Comments Total Bilirubin (test code = 1975-2) 1.7 0.2-1.2 [facility] LakewayFluoroscopic procedure less than one hour ppehenqs9132-15-03 05:05:00* Test Item Value Reference Range Interpretation Comments Aspartate Amino Transf (AST/SGOT) (test code = Aspartate Amino Transf (AST/SGOT)) 63 5-34 [facility]villeerum or plasma alanine aminotransferase measurement (enzymatic activity/volume)2020-03-22 05:05:00* Test Item Value Reference Range Interpretation Comments Alanine Aminotransferase (ALT/SGPT) (test code = 1742-6) 28 0-55 [facility]villeerum or plasma protein measurement (mass/volume)2020-03-22 05:05:00* Test Item Value Reference Range Interpretation Comments Total Protein (test code = 2885-2) 6.9 6.5-8.1 [facility]villeerum or plasma albumin measurement (mass/volume)2020-03-22 05:05:00* Test Item Value Reference Range Interpretation Comments Albumin (test code = 1751-7) 2.5 3.5-5.0 [facility] LakewayPlasma globulin measurement (mass/volume) 2020-03-22 05:05:00* Test Item Value Reference Range Interpretation Comments Globulin (test code = 48348-9) 4.4 2.3-3.5 [facility]villeerum or plasma albumin/globulin mass venor5730-19-49 05:05:00* Test Item Value Reference Range Interpretation Comments Albumin/Globulin Ratio (test code = 1759-0) 0.6 0.8-2.0 [facility]villeerum or plasma alkaline phosphatase measurement (enzymatic activity/volume)2020-03-22 05:05:00* Test Item Value Reference Range Interpretation Comments Alkaline Phosphatase (test code = 6768-6) 344 40-150 [facility] Stephenvilleerum or plasma trough vancomycin level at trough (mass/volume)2020-03-22 05:05:00* Test Item Value Reference Range Interpretation Comments Vancomycin Level Trough (test code = 4092-3) 8.8 5.0-10.0 [facility]wayBlood platelets count by estimate (number/volume)2020-03-21 06:00:00* Test Item Value Reference Range Interpretation Comments Platelet Estimate (test code = 80192-8) MODERATELY DECREASED NO EDTA PLT CLUMPSBaylor Scott & White Medical Center – LakewayPlatelet morphology 2020-03-21 06:00:00* Test Item Value Reference Range Interpretation Comments Platelet Morphology Comment (test code = 61989-3) NORMAL [facility] LakewayRBC sszvhokgcr0712-74-12 06:00:00* Test Item Value Reference Range Interpretation Comments Red Cell Morphology Comment (test code = 6742-1) NORMAL [facility]villeerum or plasma creatine kinase measurement (enzymatic activity/volume)2020-03-20 16:15:00* Test Item Value Reference Range Interpretation Comments Creatine Kinase (test code = 2157-6) 57 30-200 [facility] Stephenvilleerum or plasma creatine kinase MB measurement (mass/volume)2020-03-20 16:15:00* Test Item Value Reference Range Interpretation Comments Creatine Kinase MB (test code = 86402-5) 3.20 0-5.0 [facility] LakewayTroponin I measurement by highly sensitive enzyme osafpwtlrkf2382-75-48 16:15:00* Test Item Value Reference Range Interpretation Comments Troponin I (test code = 98281-3) 0.024 0-0.300 [facility] LakewayUS [id number] 11:39:00 [facility] [address] [place] [address] Patient Name: CAROL TRIMBLE MR #: [id number] : 1960 Age/Sex: 59/M Req #: [id number] Adm Physician: SHAY BARAJAS MD Ordered by: CORBY XIE MD Report #: [id number] Location: MED/SURG3 Ro om/Bed: 285-1 Procedure: [id number] US/US LIVE R Exam Date: 03/20/20 Exam Time: 1040 REPORT STATUS: Signed EXAM: Right Upper Quadra nt Ultrasound INDICATION: OBSTRUCTIVE JAUNDICE 20200320 Y COMPARISON: None. TECHNIQUE: Transverse and longitudinal images of the right upper abdomen were obtained. FINDINGS: Liver: Size: 13.6 cm in the right midclavicular line, normal Appearance: Coarse echot exture, nodular contour Mass: No focal masses Gallbladder: Surgica lly absent. Bile Ducts: Intrahepatic Ducts: No dilatation Ext rahepatic Ducts: Common bile duct measures 0.6 cm, borderline dilatation, like ly due to postcholecystectomy reservoir effect. Pancreas: Not well-visual ized. Right Kidney: Size: 11.3 cm Echogenicity: Normal P arenchymal thickness: Normal Collecting system: No hydronephrosis Stones: None Cyst/Mass: None Vessels: Aorta: Limited visuali zation. Inferior Vena Cava: Limited visualization. Main Portal Vei n: 1 cm, normal size with hepatopetal flow. Free Fluid: Trace perihe patic ascites. IMPRESSION: Cirrhotic liver with trace perihepatic ascites . Status post cholecystectomy. Borderline dilatation of common bile duct, pr obably due to postcholecystectomy reservoir effect. Signed by: Dr. Naseem Canela MD on 03/20/2020 11:44 AM Dictated By: NASEEM Campbell MD 1144 Transcribed B y: JOSE on 03/20/20 1144 COPY TO: CORBY XIE MD Serum or plasma uric acid measurement (mass/volume)2020-03-20 06:20:00* Test Item Value Reference Range Interpretation Comments Uric Acid (test code = 3084-1) 4.1 4.8-8.0 [facility]woodFOOT LEFT NXFIZVUY9467-04-96 18:10:00 [facility] [address] [address] Patient Name: CAROL TRIMBLE MR #: [id number] : 1960 Age/Sex: 59/M Req #: [id number] Adm Physician: Ordered by: NIDA CALDERON MD Report #: [id number] Location: ER Room/Bed: Procedure: [id number] DX/FOOT LEFT COM PLETE Exam Date: 03/19/20 Exam Time: 1739 REPORT STATUS: Signed Foot complete C PT code: 14325 Indication: infection LE CELLULITIS, O2 SAT 94% SMOKER 20200319 Technique: A.P., oblique and lateral views of the left fo ot obtained. Comparison: none. Findings: Calcaneus is intact with ti ny posterior or plantar spur. The midfoot is intact with mild degenerative ch anges. No evidence of displaced fracture or dislocation involving any of the digits. Hallux valgus. No focal demineralization or periosteal new bone forma tion. No radiopaque foreign bodies in the soft tissues. IMPRESSION: No radiographic evidence of osteomyelitis. Degenerative changes as described above. Signed by: Dr. Selena Moon MD on 03/19/2020 6:16 PM Dict ated By: SELENA MOON MD 15 Transcribed By: JOSE on 03/19/201815 COPY TO: NIDA CALDERON MD Fluoroscopic procedure less than one hour [id number] 18:01:00* Test Item Value Reference Range Interpretation Comments Coronavirus (PCR) (test code = Coronavirus (PCR)) NOT DETECTED NOTD ETECTED SARS-COV-2 (COVID19), HIGHRISK, RT-PCRNegative results do not preclude SARS-CoV- 2 infection and should not be used as the sole basis for patient management deci sions. Negative results must be combined with clinical observations, patient his tory, and epidemiological information. Optimum specimen types and timing for pea k viral levels during infections caused by SARS-CoV-2 have not been determined. Collection of multiple specimens ot types of specimens may be necessary to detec t virus. Improper specimen collection and handling, sequence variability under p rimers/probes, or organism present below the limit of detection may lead to fals e negative results. Positive and negative predictive values of testing are highl y dependent on prevalance. False negative test results are more likely when prev alence is high.The expected result is negative (not detected).The SARS-CoV-2 bradford t is intended for the qualitative detection of nucleic acid from SARS-CoV-2 in n asopharyngeal and oropharyngeal swab samples from patients who meet COVID-19 cli nical and or epidemiological criteria. For lower respiratory tract specimens, th e assay is submitted for authoriztion by FDA under an Emergency Use Authorizatio n (EUA). Testing methodology is real time RT-PCR. If received as separate collec tion devices, nasopharygeal and oropharyngeal specimens are combined for analysi s. Additional specimens may be split to a separate accession for analysi and rep orting as this test includes a single unit of service.Test results must be corre lated with clinical presentation and evaluated in the context of other laborator y and epidemiologic data. Test performance can be affected because the epidemiol ogy and clinical spectrum of infection caused by SARS-CoV-2 is not fully known. For example, the optimum types of specimens to collect and when during the cours e of infection these specimens are most likely to contain detectable viral RNA m ay not be known.This test has not been Food and Drug Administration (FDA) cleare d or approved and has been authorized by FDA under an Emergency Use Authorizatio n (EUA). The test is only authorized for the duration of the declaration that rcumstances exist justifying the authorization of emergency use of in vitro diag nostic tests for detection and/or diagnosis of SARS-CoV-2 under section 564(b) o f the Act, 21 U.S.C. section 360bbb-3(b)(1), unless the authorization is termina aliya or revoked sooner. [facility] are certified under the C linical Laboratory Improvement Amendments of 1988 (CLIA), 42 U.S.C. section 263a , to perform high complexity tests.Specimen sent to [facility] and testing performed by [facility] [id number] [place] [address] [phone] Director: Prabhakar Silveira M.D.CLIA # 4 [id number] [facility] SINGLE (PORTABLE) 2020-03-19 17:59:00 [address] [place] [address] Patient Name: CAROL TRIMBLE MR #: [id number] : 1960 Age/Sex: 59/M Req #: [id number] Adm Physician: Ordered by: NIDA CALDERON MD Report #: [id number] Location: ER Room/Bed: Procedure: [id number] DX/CHEST SINGLE (PORTABLE) Exam Date: 03/19/20 Exam Time: 1739 REPORT STATUS: Signed EXAMINATION: C HEST SINGLE (PORTABLE) COMPARISON: Chest x-ray 10/30/2013 INDICATI ON: Foot infection LE CELLULITIS, O2 SAT 94% SMOKER 20200319 DISCUSSION: Frontal view of the chest obtained at 1744 hours. HEART AN D MEDIASTINUM: Stable cardiomegaly. No vascular congestion. LINES: None . LUNGS: The lungs are well inflated and clear. No pneumonia or pulmonary edema. PLEURA: No pleural effusion or pneumothorax. BONES AND SOFT TI SSUES: No focal osseous lesion. The soft tissues are normal. IMPRESSION: Stable cardiomegaly. No evidence of CHF. No acute cardiopulmonary process. Signed by: Dr. Selena Moon MD on 03/19/2020 6:10 PM Dictated By: SELENA MOON MD 09 COPY TO: NIDA CALDERON MD Prothrombin time (PT) in platelet poor plasma by coagulation assay 2020-03-19 17:10:00* Test Item Value Reference Range Interpretation Comments Prothrombin Time (test code = 5902-2) 15.4 11.9-14.5 [facility]wayINR in Platelet poor plasma by Coagulation [id number] 17:10:00* Test Item Value Reference Range Interpretation Comments Prothromb Time International Ratio (test code = 6301-6) 1.15 Oral Anticoagulant Therapy INR Values:1. Low Intensity Therapy 1.5 - 2.02 . Moderate Intensity Therapy 2.0 - 3.03. High Intensity Therapy(1) 2.5 - 3. 54. High Intensity Therapy(2) 3.0 - 4.05. Panic Value INR > 5.0 [facility] LakewayActivated partial thromboplastin time (aPTT) in platelet poor plasma by coagulation [id number] 17:10:00* Test Item Value Reference Range Interpretation Comments Activated Partial Thromboplast Time (test code = 19368-2) 32.6 23.8-35.5 [facility] LakewayUrine color pizppukkzjrxo0464-49-83 17:10:00* Test Item Value Reference Range Interpretation Comments Urine Color (test code = 5778-6) ORANGE YELLOW [facility] LakewayUrine [id number] 17:10:00* Test Item Value Reference Range Interpretation Comments Urine Clarity (test code = 38813-3) SL CLOUDY CLEAR [facility] Stephenvillepecific gravity of Urine by Test strip 2020-03-19 17:10:00* Test Item Value Reference Range Interpretation Comments Urine Specific Crossnore (test code = 5811-5) >=1.030 1.010-1.02 5 [facility]way[facility] pH measurement by automated test [id number] 17:10:00* Test Item Value Reference Range Interpretation Comments Urine pH (test code = 91209-5) 6 5-7 [facility]way[facility] leukocyte esterase detection by [id number] 17:10:00* Test Item Value Reference Range Interpretation Comments Urine Leukocyte Esterase (test code = 5799-2) NEGATIVE NEGATIVE [facility]way[facility] nitrite [id number] 17:10:00* Test Item Value Reference Range Interpretation Comments Urine Nitrite (test code = 24643-8) POSITIVE NEGATIVE [facility]way[facility] protein measurement by test strip (mass/volume)2020-03-19 17:10:00* Test Item Value Reference Range Interpretation Comments Urine Protein (test code = 5804-0) 1+ NEGATIVE [facility]way[facility] glucose [id number] 17:10:00* Test Item Value Reference Range Interpretation Comments Urine Glucose (UA) (test code = 2349-9) NEGATIVE NEGATIVE [facility]way[facility] ketones detection by automated test [id number] 17:10:00* Test Item Value Reference Range Interpretation Comments Urine Ketones (test code = 13082-3) NEGATIVE NEGATIVE [facility]way[facility] opiates screening [id number] 17:10:00* Test Item Value Reference Range Interpretation Comments Urine Opiates Screen (test code = 07254-3) NEGATIVE NEGATIVE ALL TESTS PERFORMED MANUALLY ON [employer] TOX/SEE TESTB[facility] LakewayBarbiturates screen, [id number] 17:10:00* Test Item Value Reference Range Interpretation Comments Urine Barbiturates Screen (test code = 573739972) NEGATIVE NEGA TIVE [facility]wayUrine phencyclidine detection by screening [id number] 17:10:00* Test Item Value Reference Range Interpretation Comments Urine Phencyclidine Screen (test code = 82041-4) NEGATIVE NEGAT KELSEA [facility]wayUrine amphetamines detection by screen method > 1000 [id number] 17:10:00* Test Item Value Reference Range Interpretation Comments Urine Amphetamines Screen (test code = 03519-0) POSITIVE NEGATI VE This test provides only a screen. Positive results should be repeated by a confi rmatory test.[facility] LakewayFluoroscopic procedure less than one hour [id number] 17:10:00* Test Item Value Reference Range Interpretation Comments Urine Methamphetamines Screen (test code = Urine Metha mphetamines Screen) NEGATIVE NEGATIVE [facility]wayUrine benzodiazepines detection by screening [id number] 17:10:00* Test Item Value Reference Range Interpretation Comments Urine Benzodiazepines Screen (test code = 81031-4) POSITIVE NEG ATIVE This test provides only a screen. Positive results should be repeated by a confi rmatory test.[facility]way[facility] cocaine measurement (mass/volume)2020-03-19 17:10:00* Test Item Value Reference Range Interpretation Comments Urine Cocaine Screen (test code = 3398-5) NEGATIVE NEGATIVE [facility]way[facility] cannabinoids detection by screening [id number] 17:10:00* Test Item Value Reference Range Interpretation Comments Urine Cannabinoids Screen (test code = 14509-2) NEGATIVE NEGATI VE THESE RESULTS ARE FOR MEDICAL TREATMENT ONLYTHIS REPORT CONTAINS UNCONFIR MED SCREENING RESULTS*POSITIVE RESULTS WILL BE CONFIRMED BY REFERENCE LAB UPON R EQUEST CUT-OFFDRUG CLASS CONCENTRATION ng/mLAmphetamines 1000Methamphetamines 1000Cocaine 300Opiate 300Phencyc lidine 25Cannabinoid 50Barbiturates 300Benzodiazepine 300Methadone 300[facility]woodUrine methadone [id number] 17:10:00* Test Item Value Reference Range Interpretation Comments Urine Methadone Screen (test code = 48874-3) NEGATIVE NEGATIVE THESE RESULTS ARE FOR MEDICAL TREATMENT ONLYTHIS REPORT CONTAINS UNCONFIR MED SCREENING RESULTS*POSITIVE RESULTS WILL BE CONFIRMED BY REFERENCE LAB UPON R EQUEST CUT-OFFDRUG CLASS CONCENTRATION ng/mLAmphetamines 1000Methamphetamines 1000Cocaine Metabolite 300Opiate 300Phencyc lidine 25Cannabinoid 50Barbiturates 300Benzodiazepine 300Methadone 300[facility] CenterU[facility] urobilinogen measurement by test strip (mass/volume)2020-03-19 17:10:00* Test Item Value Reference Range Interpretation Comments Urine Urobilinogen (test code = 93992-2) 0.2 0.2-1 [facility]way[facility] total bilirubin measurement (mass/volume)2020-03-19 17:10:00* Test Item Value Reference Range Interpretation Comments Urine Bilirubin (test code = 1978-6) MODERATE NEGATIVE [facility]wayU[facility] erythrocytes [id number] 17:10:00* Test Item Value Reference Range Interpretation Comments Urine Blood (test code = 12975-2) NEGATIVE NEGATIVE [facility] LakewayAutomated urine sediment leukocyte count by microscopy (number/high power field)2020-03-19 17:10:00* Test Item Value Reference Range Interpretation Comments Urine WBC (test code = 5821-4) 0-5 0-5 [facility] LakewayErythrocytes detection in urine sediment by light [id number] 17:10:00* Test Item Value Reference Range Interpretation Comments Urine RBC (test code = 46574-4) NONE 0-5 [facility] LakewayBacteria detection in urine sediment by light [id number] 17:10:00* Test Item Value Reference Range Interpretation Comments Urine Bacteria (test code = 50701-9) MODERATE NONE [facility] LakewayEpithelial cells detection in urine sediment by light [id number] 17:10:00* Test Item Value Reference Range Interpretation Comments Urine Epithelial Cells (test code = 56762-0) FEW NONE [facility] LakewayAmorphous sediment detection in urine sediment by light [id number] 17:10:00* Test Item Value Reference Range Interpretation Comments Urine Amorphous Sediment (test code = 8246-1) FEW FEW [facility] LakewayHyaline casts detection in urine sediment by light [id number] 17:10:00* Test Item Value Reference Range Interpretation Comments Urine Hyaline Casts (test code = 39179-0) 2-5 0-1 [facility] LakewayMucus detection in urine sediment by light [id number] 17:10:00* Test Item Value Reference Range Interpretation Comments Urine Mucus (test code = 8247-9) MODERATE RARE [facility] LakewayBlood [id number] 17:10:00* Test Item Value Reference Range Interpretation Comments Blood Culture (test code = 12315170) NO GROWTH AFTER 72 HOURS [facility] L-SPINE W/O [id number] 10:46:00 Name: CAROL TRIMBLE [facility] : 1960 Age/S: 59 / M [address] [facility] Unit #: [id number] Loc: [place] [address] Phys: Sunil Pedro MD Acct: [id number] Dis Date: Status: REG ER PHONE #: [phone] Exam Date: 12/16/2019 0955 FAX #: [phone] Reason: trauma, pain EXAMS: CPT CODE: [id number] CT L-SPINE W/O CONTRAST 94808 HISTORY: trauma, pain TECHNIQUE: 2.5 mm axial [...] significant foraminal or central canal stenosis. Location: [facility] PAGE 1 Signed Report (C ONTINUED) Name: CAROL TRIMBLE [facility] nt : 1960 Age/S: 59 / M [address] [facility] it #: [id number] Loc: [place] [address] Phys: Sunil Pedro MD Acct: [id number] Dis Date: Status: REG ER PHONE #: [phone] Exam Date: 12/16/2019954 FAX #: [phone] Reason: trauma, pain E XAMS: CPT CODE: [id number] CT L-SPINE W/O CONTRAST 42319 <Continued> at 1046 Reported and signed by: Dariusz Neal MD CC: Sunil Pedro MD; Shay Armijo gist:KASIE FERNANDES, RT(R),CT CTDI: DLP: Trnscb Date/Time: 12/16/2019 (7256) [id number] Orig Print D/T: S: 12/16/2019 (8509) PAGE 2 Signed Report
[2020-07-02] MEDS ORDERED: SODIUM CHLORIDE 0.9% 50ML 50 ML ONE (20:01)
[2020-07-02] MEDS ORDERED: IOPAMIDOL 370 MG/ML 200 ML INFUS..BTL INJ ONE (20:01)
[2020-07-02 20:54] LABS: BILIRUBIN,URINE SMALL (NEGATIVE); CLARITY,URINE SL CLOUDY (CLEAR); COLOR,URINE AMBER (YELLOW); KETONES,URINE NEGATIVE (NEGATIVE); LEUKOCYTE ESTERASE ,URINE NEGATIVE (NEGATIVE); NITRITE,URINE NEGATIVE (NEGATIVE); PROTEIN,URINE DIPSTICK NEGATIVE (NEGATIVE); URINE UROBILINOGEN 1 mg/dL (0.2 - 1)
[2020-07-02 20:58] LABS: AMPHETAMINES SCREEN,URINE NEGATIVE (NEGATIVE); BENZODIAZEPINES SCREEN,URINE NEGATIVE (NEGATIVE); PHENCYCLIDINE SCREEN,URINE NEGATIVE (NEGATIVE)
[2020-07-02 21:06] LABS: EPITHELIAL CELLS,URINE RARE /LPF; RBC,URINE 0-5 /HPF (0-5)
--- NOTE | 2020-07-02 21:11 | Diagnostic Imaging Report ---
Exam: Head CT without contrast History: Possible stroke, resolving facial droop Comparison studies: None per Technique: Axial images were obtained from the skull base to the vertex. Coronal and sagittal images reconstructed from the axial data. Dose modulation, iterative reconstruction, and/or weight based adjustment of the mA/kV was utilized to reduce the radiation dose to as low as reasonably achievable. Radiation dose: Total DLP: 947.23 mGy*cm. Estimated effective dose: DLP x 0.015 Intravenous contrast: None Findings: Scalp: Incidental small focal nonspecific soft tissue swelling or scarring in the left posterior parietal scalp. Bones: No fractures, blastic or lytic lesions. Brain sulci: Appropriate for age. Ventricles: Normal in size and configuration. No hydrocephalus. Extra-axial spaces: No masses, no fluid collection. Parenchyma: Ill-defined confluent hypodensities in the supratentorial white matter are nonspecific but are most compatible with chronic microvascular ischemic changes. No masses, hemorrhage, acute or chronic vascular insults. Sellar/suprasellar region: No abnormalities. Craniocervical junction: Patent foramen magnum. No Chiari one malformation. Middle ear cavities and mastoids: Clear. Included paranasal sinuses: Clear. Incidental findings: Atherosclerotic calcifications in the carotid siphons and intradural vertebral arteries. IMPRESSION: 1. No acute intracranial abnormalities. 2. Moderate chronic microvascular ischemic changes. Brain MRI could further evaluate if there remains persistent concern for acute ischemia. Signed by: Dr. Odin Irwin M.D. on 07/02/2020 8:23 PM
--- NOTE | 2020-07-02 21:20 | Diagnostic Imaging Report ---
CT Abdomen And Pelvis with Intravenous Contrast INDICATION: ^RLQ pain , inguinal hernia TECHNIQUE: Thin collimation axial images obtained from the diaphragm to the level of the pubic symphysis following the uneventful administration of 100 cc of low osmolar, nonionic intravenous contrast. Dose reduction techniques used: Automated exposure control, adjustment of the mAs and/or kVp according to patient size, standardized low-dose protocol, and/or iterative reconstruction technique. RADIATION DOSE: Total DLP: 647.68 mGy*cm Estimated effective dose: (DLP x 0.015 x size factor) mSv CTDIvol has been reviewed. It is below the limits set by the Radiation Protocol Committee (RPC). COMPARISON: Right upper quadrant ultrasound 03/20/2020. ABDOMEN FINDINGS: Lung Bases: The heart is mildly enlarged with coronary artery calcifications. Wispy bands of subsegmental atelectasis/scarring in the middle lobe. Small esophageal varices. Liver: Lobulated contours. Subsegmental calcified granuloma in the liver dome.. No evidence for mass. Gallbladder: Absent. Intrahepatic bile ducts are distended. The common bile duct measures 10 mm in diameter without intraluminal filling defect. By ultrasound, the common bile duct measured 0.6 cm Pancreas: Mildly trophic. No mass or ductal dilatation. Spleen: Measures 20 cm in length. No mass. Adrenal Glands: No evidence of nodule. Kidneys: Right: Normal enhancement. No soft tissue mass. Subcentimeter calculus in the interpolar region measures 4 mm. No hydronephrosis. Left: Normal enhancement. No soft tissue mass. No hydronephrosis. Lymph Nodes: Prominent periportal and gastrohepatic lymph nodes. A lymph node in the tosha hepatis measures 1.1 cm in AP dimension. Lymph node in the gastrohepatic ligament measures 1.2 cm in AP dimension. Increased number of aortocaval lymph nodes measuring up to 8 mm. Aorta: Diffusely calcified and normal in diameter Portal vein: Measures 1.5 cm in diameter. No intraluminal filling defects PELVIS FINDINGS: Bowel: Stomach: Collapsed. No evidence of mass. Small Bowel: Enteric contrast in the mid small bowel. One small bowel loop in the midabdomen is distended to 3 cm with inspissated enteric contents. Large Bowel: Mild mural thickening of the right colon and transverse colon. Scattered diverticulosis. There are clips at the base of the cecum. Appendix: Not visualized and may be absent. Bladder: Well-distended and normal in appearance. Prostate gland and seminal vesicles appear unremarkable for age Peritoneum/retroperitoneum: Small amount of free fluid in the pelvis and surrounding the liver. Diffuse edema of the small bowel mesentery. No free air. There is a dropped surgical clip in the lower right pelvis. Soft tissues: Right femoral hernia contains fat and fluid. The neck is approximately 9 mm. The soft tissues surrounding the hernia are edematous. Bones: Mild degenerative changes of the spine. Posterior disc bulges from L3-4 to L5-S1. No focal osseous lesions. IMPRESSION: 1. Distended small bowel loop with inspissated enteric contents suggestive of low-grade partial small bowel obstruction. 2. Fat and fluid containing right femoral hernia with inflammation of the adjacent soft tissues. Findings are concerning for incarceration. 3. Cirrhosis and portal hypertension with splenomegaly, small paraesophageal varices, and small amount of ascites. 5. Mild mural thickening of the colon may be secondary to portal hypertension. Mild burden of diverticulosis coli. 6. Status post cholecystectomy. Increasing common bile duct distention of uncertain etiology. Signed by: Dr. Hood Garcia MD on 07/02/2020 7:54 PM
[2020-07-02] MEDS ORDERED: PIPER-TAZ 3.375 GM 50 ML IV SCH (22:00)
--- OUTSIDE RECORDS SUMMARY | 2020-07-02 22:15 | XMS REPORT | Continuity of Care Document ---
Author Author [facility] Organization [facility] Address [address] [place] [address] Phone Unavailable Care Team Providers Care Delinquent Tax Collector Name Role Phone MD SHAY BARAJAS PCP KATERINA GERARD Attphys Unavailable SHAY BARAJAS Attphys Unavailable SHAY BARAJAS Admphys Unavailable Payers Payer Name Policy Type Policy Number Effective Date Expiration Date S ource Problems Condition Name Condition Details Condition Category Status Onset Date Resolution Date Last Treatment Date Treating Clinician Comments Source Chest pain Problem Active [facility] Drug abuse Problem Active [facility] High bilirubin Problem Active [facility] Cellulitis of left foot Problem Active [facility] Hypertension Problem Active [facility] Allergies, Adverse Reactions, Alerts Allergy Name Allergy Type Status Severity Reaction(s) Onset Date Inacti ve Date Treating Clinician Comments Source No Known Allergies DA Active U 2015-04-18 00:00:00 [facility] Social History Social Habit Start Date Stop Date Quantity Comments Source Sex Assigned At 1960 00:00:00 1960 00:00:00 Male [facility] Medications Ordered Medication Name Filled Medication Name Start Date Stop Da te Current Medication? Ordering Clinician Indication Dosage Frequency Signature (SIG) Comments Components Source Lisinopril Lisinopril 2017-02-10 13:50:00 2020-03-19 00:00:00 No 10 Daily [facility] Aspirin Aspirin Yes 81 Daily [facility] Carisoprodol (Soma) 350 Mg TABLET Carisoprodol (Soma) 350 Mg TABLET Yes 350 Three Times A Day as needed for Pain [facility] Ciprofloxacin Hcl (Cipro) 500 Mg TABLET Ciprofloxacin Hcl (C ipro) 500 Mg TABLET Yes 500 Twice A Day [facility] Ciprofloxacin Hcl (Cipro) 500 Mg TABLET Ciprofloxacin Hcl (C ipro) 500 Mg TABLET Yes 500 Twice A Day [facility] Doxycycline Hyclate Doxycycline Hyclate Yes 100 Twice A Day [facility] Doxycycline Hyclate Doxycycline Hyclate Yes 100 Twice A Day [facility] Ibuprofen Ibuprofen Yes 800 Every 4 Hours as nee ded for Pain [facility] Lisinopril Lisinopril Yes 20 Daily [facility] Metoprolol Tartrate Metoprolol Tartrate Yes 50 Twice A Day [facility] Acetaminophen/Hydrocodone Bitart ([place] 10MG-325MG*) 1 Ea TAB Acetaminophen/Hydrocodone Bitart ([place] 10MG-325MG*) 1 Ea TAB 2020-03-19 00:00:00 No 10 Four Times Daily as needed for Pain [facility] Lisinopril Lisinopril 2017-02-10 00:00:00 No 20 Lizett ly [facility] Metoprolol Succinate Metoprolol Succinate 2017-02-09 00:00:00 No Twice A Day [facility] Vital Signs Vital Name Observation Time Observation Value Comments Source Body Temperature 2020-03-22 15:46:00 96.7 [degF] [facility] Weight 2020-03-20 09:35:00 230 [lb_av] [facility] BMI (Body Mass Index) 2020-03-20 09:35:00 31.2 kg/m2 [facility] Procedures Procedure Date / Time Performed Performing Clinician Severiano RUSH Liver 2020-03-20 00:00:00 [facility] Plan of Care Planned Activity Planned Date Details Comments Source Instructions Cellulitis [facility] Encounters Start Date/Time End Date/Time Encounter Type Admission Type Attendi [facility] Care Department Encounter ID Source 2020-03-19 18:14:00 2020-03-22 18:30:00 Discharged Inpatient 1 SHAY BARAJAS [facility] [id number] [facility] Results Test Description Test Time Test Comments Results Result Comments Source CT BRAIN WO 2020-07-02 20:18:00 [facility] [address] [address] Patient Name: CAROL TRIMBLE MR #: [id number] : 1960 Age/Sex: 59/M Req #: [id number] Adm Physician: Ordered by: KATERINA GERARD DO Report #: [id number] Location: ER Room/Bed: Procedure: [id number] CT/CT BRAIN WO Exam Date: 07/02/20 Exam Time: 1914 REPORT STATUS: Signed Exam: Head CT without contrast History: Possible stroke, resolving facial droop Comparison studies: None per Technique: Axial images were obtained from the skull base to the vertex. Coronal and sagittal images reconstructed from the axial data. Dose modula tion, iterative reconstruction, and/or weight based adjustment of the mA/kV was utilized to reduce the radiation dose to as low as reasonably achievable. Radiation dose: Total DLP: 947.23 mGy*cm. Estimated effective dose: DLP x 0.015 Intravenous contrast: None Findings: Scalp: Incidental small focal nonspecific soft tissue swelling or scarring in the left posterior parietal scalp. Bones: No fractures, blastic or lytic lesions. Brain sulci: Appropriate for age. Ventricles: Normal in size and configuration. No hydrocephalus. Extra-axial spaces: No masses, no fluid collection. Parenchyma: Ill-defined confluent hypodensities in the supratentorial white matter are nonspecific but are most compatible with chronic microvascular ischemic changes. No masses, hemorrhage, acute or chronic vascular insults. Sellar/suprasellar region: No abnormalities. Craniocervical junction: Patent foramen magnum. No Chiari one malformation. Middle ear cavities and mastoids: Clear. Included paranasal sinuses: Clear. Incidental findings: Atherosclerotic calcifications in the carotid siphons and intradural vertebral arteries. IMPRESSION: 1. No acute intracranial abnormalities. 2. Moderate chronic microvascular ischemic changes. Brain MRI could further evaluate if there remains persistent concern for acute ischemia. Signed by: Dr. Lore Atkins M.D. on 07/02/2020 8:23 PM Dictated By: LORE ATKINS MD 22 Transcribed By: JOSE on 07/02/20 2 023 COPY TO: KATERINA GERARD DO CT ABDOMEN/PELVIS W 2020-07-02 19:35:00 [address] [address] Patient Name: CAROL TRIMBLE MR #: [id number] : 1960 Age/Sex: 59/M Req #: [id number] Adm Physician: Ordered by: KATERINA GERARD DO Report #: [id number] Location: ER Room/Bed: Procedure: [id number] CT/CT ABDOMEN/PELVIS W Exam Date: 07/02/20 Exam Time: 1914 REPORT STATUS: Signed CT Abdomen And Pelvis with Intravenous Contrast INDICATION: RLQ pain , inguinal hernia TECHNIQUE: Thin collimation axial images obtained from the diaphragm to the level of the pubic symphysis following the uneventful administration of 100 cc of low osmolar, nonionic intravenous contrast. Dose reduction techniques used: Automated exposure control, adjustment of the mAs and/or kVp according to patient size, standardized low-dose protocol, and/or iterative reconstruction technique. RADIATION DOSE: Total DLP: 647.68 mGy*cm Estimated effective dose: (DLP x 0.015 x size factor) mSv CTDIvol has been reviewe d. It is below the limits set by the Radiation Protocol Committee (RPC). COMPARISON: Right upper quadrant ultrasound 03/20/2020. ABDOMEN FINDINGS: Lung Bases: The heart is mildly enlarged with coronary artery calcifications. Wispy bands of subsegmental atelectasis/scarring in the middle lobe. Small esophageal varices. Liver: Lobulated contours. Subsegmental calcified granuloma in the liver dome.. No evidence for mass. Gallbladder: Absent. Intrahepatic bile ducts are distended. The common bile duct measures 10 mm in diameter without intraluminal filling defect. By ultrasound, the common bile duct measured 0.6 cm Pancreas: Mildly trophic. No mass or ductal dilatation. Spleen: Measures 20 cm in length. No mass. Adrenal Glands: No evidence of nodule. Kidneys: Right: Normal enhancement. No soft tissue mass. Subcentimeter calculus in the interpolar region measures 4 mm. No hydronephrosis. Left: Normal enhancement. No soft tissue mass. No hydronephrosis. Lymph Nodes: Prominent periportal and gastrohepatic lymph nodes. A lymph node in the tosha hepatis measures 1.1 cm in AP dimension. Lymph node in the gastrohepatic ligament measures 1.2 cm in AP dimension. Increased number of aortocaval lymph nodes measuring up to 8 mm. Aorta: Diffusely calcified and normal in diameter Portal vein: Measures 1.5 cm in diameter. No intraluminal filling defects PELVIS FINDINGS: Bowel: Stomach: Collapsed. No evidence of mass. Small Bowel: Enteric contrast in the mid small bowel. One small bowel loop in the midabdomen is distended to 3 cm with inspissated enteric contents. Large Bowel: Mild mural thickening of the right colon and transverse colon. Scattered diverticulosis. There are clips at the base of the cecum. Appendix: Not visualized and may be absent. Bladder: Well-distended and normal in appearance. Prostate gland and seminal vesicles appear unremarkable for age Peritoneum/retroperitoneum: Small amount of free fluid in the pelvis and surrounding the liver. Diffuse edema of the small bowel mesentery. No free air. There is a dropped surgical clip in the lower right pelvis. Soft tissues: Right femoral hernia contains fat and fluid. The neck is approximately 9 mm. The soft tissues surrounding the hernia are edematous. Bones: Mild degenerative changes of the spine. Posterior disc bulges from L3-4 to L5-S1. No focal osseous lesions. IMPRESSION: 1. Distended small bowel loop with inspissated enteric contents suggestive of low-grade partial small bowel obstruction. 2. Fat and fluid containing right femoral hernia with inflammation of the adjacent soft tissues. Findings are concerning for incarceration. 3. Cirrhosis and portal hypertension with splenomegaly, small paraesophageal varices, and small amount of ascites. 5. Mild mural thickening of the colon may be secondary to portal hypertension. Mild burden of diverticulosis coli. 6. Status post cholecystectomy. Increasing common bile duct distention of uncertain etiology. Signed by: Dr. Selena Moon MD on 07/02/2020 7:54 PM Dictated By: SELENA MOON MD 53 Transcribed By: JOSE on 07/02/201953 COPY TO: KATERINA GERARD DO Capillary blood glucose measurement by glucometer (mas s/volume) 2020-03-22 15:25:00 Test Item Bedside Glucose (test code = 29987-6) 88 70-120 Meter ID: [id number] Health [facility]anoBlood leukocytes automated count (number/volume)2020-03-22 05:05:00* Test Item Value Reference Range Interpretation Comments White Blood Count (test code = 6690-2) 4.97 4.8-10.8 [facility] erythrocytes automated count (number/volume)2020-03-22 05:05:00* Test Item Value Reference Range Interpretation Comments Red Blood Count (test code = 789-8) 4.74 4.3-5.7 [facility] hemoglobin measurement (moles/volume)2020-03-22 05:05:00* Test Item Value Reference Range Interpretation Comments Hemoglobin (test code = 10375-7) 14.5 14.0-18.0 [facility]anoAutomated blood hematocrit (volume fraction)2020-03-22 05:05:00* Test Item Value Reference Range Interpretation Comments Hematocrit (test code = 4544-3) 42.9 38.2-49.6 [facility]Aut[facility] erythrocyte mean corpuscular [id number] 05:05:00* Test Item Value Reference Range Interpretation Comments Mean Corpuscular Volume (test code = 787-2) 90.5 81-99 [facility]anoAutomated erythrocyte mean corpuscular hemoglobin (mass per erythrocyte)2020-03-22 05:05:00* Test Item Value Reference Range Interpretation Comments Mean Corpuscular Hemoglobin (test code = 785-6) 30.6 28-32 [facility] erythrocyte mean corpuscular hemoglobin concentration measurement (mass/volume)2020-03-22 05:05:00* Test Item Value Reference Range Interpretation Comments Mean Corpuscular Hemoglobin Concent (test code = 786-4) 33.8 31-35 [facility] PlanoRDW YsyIc-Svb3770-06-11 05:05:00* Test Item Value Reference Range Interpretation Comments Red Cell Distribution Width (test code = 51394-5) 14.4 11.7 -14.4 [facility] blood platelet count (count/volume)2020-03-22 05:05:00* Test Item Value Reference Range Interpretation Comments Platelet Count (test code = 777-3) 82 140-360 [facility] blood segmented neutrophil count as percentage of total ucynywohba7927-46-34 05:05:00* Test Item Value Reference Range Interpretation Comments Neutrophils (%) (Auto) (test code = 45205-5) 54.3 38.7-80.0 [facility]Aut[facility] blood lymphocyte count as percentage ot total pmfkrksvuj6187-87-65 05:05:00* Test Item Value Reference Range Interpretation Comments Lymphocytes (%) (Auto) (test code = 736-9) 27.6 18.0-39.1 [facility] blood monocyte count as percentage of total yaqingvocm1121-07-49 05:05:00* Test Item Value Reference Range Interpretation Comments Monocytes (%) (Auto) (test code = 5905-5) 11.9 4.4-11.3 [facility]anoAutom[facility] blood eosinophil count as percentage of total dxiscjznyc4023-13-55 05:05:00* Test Item Value Reference Range Interpretation Comments Eosinophils (%) (Auto) (test code = 713-8) 4.4 0.0-6.0 [facility]anoAutomated blood basophil count as percentage of total yuffradrvt8388-16-86 05:05:00* Test Item Value Reference Range Interpretation Comments Basophils (%) (Auto) (test code = 706-2) 1.6 0.0-1.0 [facility]anoFluoroscopic procedure less than one hour trtppztk8102-64-06 05:05:00* Test Item Value Reference Range Interpretation Comments IM GRANULOCYTES % (test code = IM GRANULOCYTES %) 0.2 0.0- 1.0 [facility]anoAutom[facility] blood neutrophil count 2020-03-22 05:05:00* Test Item Value Reference Range Interpretation Comments Neutrophils # (Auto) (test code = 751-8) 2.7 2.1-6.9 [facility] lymphocytes count (number/volume) 2020-03-22 05:05:00* Test Item Value Reference Range Interpretation Comments Lymphocytes # (Auto) (test code = 57406-0) 1.4 1.0-3.2 [facility]anoBlood monocytes automated count (number/volume)2020-03-22 05:05:00* Test Item Value Reference Range Interpretation Comments Monocytes # (Auto) (test code = 742-7) 0.6 0.2-0.8 [facility]anoAutomated blood eosinophil count 2020-03-22 05:05:00* Test Item Value Reference Range Interpretation Comments Eosinophils # (Auto) (test code = 711-2) 0.2 0.0-0.4 [facility]anoAutomated blood basophil count (count/volume)2020-03-22 05:05:00* Test Item Value Reference Range Interpretation Comments Basophils # (Auto) (test code = 704-7) 0.1 0.0-0.1 [facility]anoFluoroscopic procedure less than one hour oajtaert9302-80-65 05:05:00* Test Item Value Reference Range Interpretation Comments Absolute Immature Granulocyte (auto (bradford t code = Absolute Immature Granulocyte (auto) 0.01 0-0.1 [facility] sodium measurement (moles/volume)2020-03-22 05:05:00* Test Item Value Reference Range Interpretation Comments Sodium Level (test code = 2951-2) 138 136-145 [facility] plasma potassium measurement (moles/volume)2020-03-22 05:05:00* Test Item Value Reference Range Interpretation Comments Potassium Level (test code = 2823-3) 3.6 3.5-5.1 [facility] chloride measurement (moles/volume)2020-03-22 05:05:00* Test Item Value Reference Range Interpretation Comments Chloride Level (test code = 2075-0) 105 98-107 [facility] or plasma carbon dioxide, total measurement (moles/volume)2020-03-22 05:05:00* Test Item Value Reference Range Interpretation Comments Carbon Dioxide Level (test code = 2028-9) 26 22-29 [facility] or plasma anion abq2411-30-78 05:05:00* Test Item Value Reference Range Interpretation Comments Anion Gap (test code = 39261-9) 10.6 8-16 [facility] urea nitrogen measurement (mass/volume)2020-03-22 05:05:00* Test Item Value Reference Range Interpretation Comments Blood Urea Nitrogen (test code = 3094-0) 11 7-26 [facility] plasma creatinine measurement (mass/volume)2020-03-22 05:05:00* Test Item Value Reference Range Interpretation Comments Creatinine (test code = 2160-0) 0.67 0.72-1.25 [facility] plasma urea nitrogen/creatinine mass mifnn1610-92-93 05:05:00* Test Item Value Reference Range Interpretation Comments BUN/Creatinine Ratio (test code = 3097-3) 16 6-25 [facility]anoEstimated glomerular filtration rate (GFR) wdzamsiruspvy3759-21-37 05:05:00* Test Item Value Reference Range Interpretation Comments Estimat Glomerular Filtration Rate (test code = 079260478) > 60 >60 Ranges were taken from the National Kidney Disease Education Program and the [facility] Kid[facility] Foundation literature.Reference ranges:60 or greater: Nvmkfh46-10 ( for 3 consecutive months): Chronic kidney disease 15 or less: Kidney failureTexas Health Presbyterian Hospital PlanoGlucose jsbhbkrdbht9679-86-42 05:05:00* Test Item Value Reference Range Interpretation Comments Glucose Level (test code = YSO8150) 87 74-118 [facility] or plasma calcium measurement (mass/volume)2020-03-22 05:05:00* Test Item Value Reference Range Interpretation Comments Calcium Level (test code = 07133-6) 8.4 8.4-10.2 [facility] or plasma total bilirubin measurement (mass/volume)2020-03-22 05:05:00* Test Item Value Reference Range Interpretation Comments Total Bilirubin (test code = 1975-2) 1.7 0.2-1.2 [facility]anoFluoroscopic procedure less than one hour ilzfsbpx9185-36-81 05:05:00* Test Item Value Reference Range Interpretation Comments Aspartate Amino Transf (AST/SGOT) (test code = Aspartate Amino Transf (AST/SGOT)) 63 5-34 [facility]um or plasma alanine aminotransferase measurement (enzymatic activity/volume)2020-03-22 05:05:00* Test Item Value Reference Range Interpretation Comments Alanine Aminotransferase (ALT/SGPT) (test code = 1742-6) 28 0-55 [facility] or plasma protein measurement (mass/volume)2020-03-22 05:05:00* Test Item Value Reference Range Interpretation Comments Total Protein (test code = 2885-2) 6.9 6.5-8.1 [facility] or plasma albumin measurement (mass/volume)2020-03-22 05:05:00* Test Item Value Reference Range Interpretation Comments Albumin (test code = 1751-7) 2.5 3.5-5.0 [facility]anoPlasma globulin measurement (mass/volume) 2020-03-22 05:05:00* Test Item Value Reference Range Interpretation Comments Globulin (test code = 08538-3) 4.4 2.3-3.5 [facility] or plasma albumin/globulin mass ziqfq3936-29-19 05:05:00* Test Item Value Reference Range Interpretation Comments Albumin/Globulin Ratio (test code = 1759-0) 0.6 0.8-2.0 [facility] or plasma alkaline phosphatase measurement (enzymatic activity/volume)2020-03-22 05:05:00* Test Item Value Reference Range Interpretation Comments Alkaline Phosphatase (test code = 6768-6) 344 40-150 [facility]viewerum or plasma trough vancomycin level at trough (mass/volume)2020-03-22 05:05:00* Test Item Value Reference Range Interpretation Comments Vancomycin Level Trough (test code = 4092-3) 8.8 5.0-10.0 [facility]anoBlood platelets count by estimate (number/volume)2020-03-21 06:00:00* Test Item Value Reference Range Interpretation Comments Platelet Estimate (test code = 31717-9) MODERATELY DECREASED NO EDTA PLT CLUMPSTexas Health Presbyterian Hospital PlanoPlatelet morphology 2020-03-21 06:00:00* Test Item Value Reference Range Interpretation Comments Platelet Morphology Comment (test code = 32895-8) NORMAL [facility] PlanoRBC dloezbawxl8470-82-72 06:00:00* Test Item Value Reference Range Interpretation Comments Red Cell Morphology Comment (test code = 6742-1) NORMAL [facility]view[facility] or plasma creatine kinase measurement (enzymatic activity/volume)2020-03-20 16:15:00* Test Item Value Reference Range Interpretation Comments Creatine Kinase (test code = 2157-6) 57 30-200 [facility]viewerum or plasma creatine kinase MB measurement (mass/volume)2020-03-20 16:15:00* Test Item Value Reference Range Interpretation Comments Creatine Kinase MB (test code = 75304-8) 3.20 0-5.0 [facility] PlanoTroponin I measurement by highly sensitive enzyme acusxvovrmn8097-61-71 16:15:00* Test Item Value Reference Range Interpretation Comments Troponin I (test code = 84873-8) 0.024 0-0.300 [facility] PlanoUS [id number] 11:39:00 [facility] [address] [place] [address] Patient Name: CAROL TRIMBLE MR #: [id number] : 1960 Age/Sex: 59/M Req #: [id number] Adm Physician: SHAY BARAJAS MD Ordered by: CORBY XIE MD Report #: [id number] Location: [facility]/Bed: 285-1 Procedure: [id number] US/US LIVE R Exam Date: 03/20/20 Exam [...] Acid (test code = 3084-1) 4.1 4.8-8.0 [facility]anoFO[facility] LEFT [id number] 18:10:[address] [address] Patient Name: CAROL TRIMBLE MR #: [id number] : 1960 Age/Sex: 59/M Req #: [id number] Adm Physician: Ordered by: NIDA CALDERON MD Report #: [id number] Location: ER Room/Bed: Procedure: [id number] DX/FOOT LEFT COM PLETE Exam Date: 03/19/20 Exam Time: 1739 REPORT STATUS: Signed Foot complete C PT code: 16242 Indication: infection LE CELLULITIS, O2 SAT 94% [...] MD Fluoroscopic procedure less than one hour bwouzgrx2817-43-00 18:01:00* Test Item Value Reference Range Interpretation [...] for the duration of the declaration that ci rcumstances exist justifying the authorization of emergency [...] to perform high complexity tests.Specimen sent to [facility] and testing performed by Clinical Pathology [address] [place] [address] [phone] Director: Prabhakar Silveira M.D.CLIA # 4 [id number] [facility] SINGLE (PORTABLE) 2020-03-19 17:59:[address] [address] Patient Name: CAROL TRIMBLE MR #: [id number] : 1960 Age/Sex: 59/M Req #: [id number] Adm Physician: Ordered by: NIDA CALDERON MD Report #: [id number] Location: ER Room/Bed: Procedure: [id number] DX/CHEST SINGLE (PORTABLE) Exam Date: 03/19/20 Exam Time: 1740 REPORT STATUS: Signed EXAMINATION: C HEST SINGLE [...] 6:10 PM Dictated By: SELENA MOON MD 1810 COPY TO: NIDA CALDERON MD Prothrombin time (PT) in platelet poor plasma by coagulation assay 2020-03-19 17:10:00* Test Item Value Reference Range Interpretation Comments Prothrombin Time (test code = 5902-2) 15.4 11.9-14.5 [facility]anoINR in Platelet poor plasma by Coagulation rrvzy9190-26-63 17:10:00* Test Item Value Reference Range Interpretation Comments Prothromb Time International Ratio (test code = 6301-6) 1.15 Oral Anticoagulant Therapy INR Values:1. Low Intensity Therapy 1.5 - 2.02 . Moderate Intensity Therapy 2.0 - 3.03. High Intensity Therapy(1) 2.5 - 3. 54. High Intensity Therapy(2) 3.0 - 4.05. Panic Value INR > 5.0 [facility] PlanoActivated partial thromboplastin time (aPTT) in platelet poor plasma by coagulation bjinj8967-36-42 17:10:00* Test Item Value Reference Range Interpretation Comments Activated Partial Thromboplast Time (test code = 92328-5) 32.6 23.8-35.5 [facility]anoUrine color jconllmbvoizk4430-35-17 17:10:00* Test Item Value Reference Range Interpretation Comments Urine Color (test code = 5778-6) ORANGE YELLOW [facility] [facility] [id number] 17:10:00* Test Item Value Reference Range Interpretation Comments Urine Clarity (test code = 42950-3) SL CLOUDY CLE[facility] by Test strip 2020-03-19 17:10:00* Test Item Value Reference Range Interpretation Comments Urine Specific [place] (test code = 5811-5) >=1.030 1.010-1.02 5 [facility] by automated test [id number] 17:10:00* Test Item Value Reference Range Interpretation Comments Urine pH (test code = 14245-8) 6 5-7 [facility] leukocyte esterase detection by [id number] 17:10:00* Test Item Value Reference Range Interpretation Comments Urine Leukocyte Esterase (test code = 5799-2) NEGATIVE NEGATIVE [facility] nitrite [id number] 17:10:00* Test Item Value Reference Range Interpretation Comments Urine Nitrite (test code = 28526-0) POSITIVE NEGATIVE [facility] protein measurement by test strip (mass/volume)2020-03-19 17:10:00* Test Item Value Reference Range Interpretation Comments Urine Protein (test code = 5804-0) 1+ NEGATIVE [facility] glucose [id number] 17:10:00* Test Item Value Reference Range Interpretation Comments Urine Glucose (UA) (test code = 2349-9) NEGATIVE NEGATIVE [facility] ketones detection by automated test [id number] 17:10:00* Test Item Value Reference Range Interpretation Comments Urine Ketones (test code = 49125-4) NEGATIVE NEGATIVE [facility] opiates screening [id number] 17:10:00* Test Item Value Reference Range Interpretation Comments Urine Opiates Screen (test code = 54773-2) NEGATIVE NEGATIVE ALL TESTS PERFORMED MANUALLY ON BIORAD TOX/SEE TESTTexas [facility] PlanoBarbiturates screen, [id number] 17:10:00* Test Item Value Reference Range Interpretation Comments Urine Barbiturates Screen (test code = 440991395) NEGATIVE NEGA TIVE [facility] phencyclidine detection by screening [id number] 17:10:00* Test Item Value Reference Range Interpretation Comments Urine Phencyclidine Screen (test code = 40477-0) NEGATIVE NEGAT KELSEA [facility] amphetamines detection by screen method > 1000 [id number] 17:10:00* Test Item Value Reference Range Interpretation Comments Urine Amphetamines Screen (test code = 47061-4) POSITIVE NEGATI VE This test provides only a screen. Positive results should be repeated by a confi rmatory test.[facility]anoFluoroscopic procedure less than one hour [id number] 17:10:00* Test Item Value Reference Range Interpretation Comments Urine Methamphetamines Screen (test code = Urine Metha mphetamines Screen) NEGATIVE NEGATIVE [facility] benzodiazepines detection by screening [id number] 17:10:00* Test Item Value Reference Range Interpretation Comments Urine Benzodiazepines Screen (test code = 30065-9) POSITIVE NEG ATIVE This test provides only a screen. Positive results should be repeated by a confi rmatory test.[facility] cocaine measurement (mass/volume)2020-03-19 17:10:00* Test Item Value Reference Range Interpretation Comments Urine Cocaine Screen (test code = 3398-5) NEGATIVE NEGATIVE [facility] cannabinoids detection by screening [id number] 17:10:00* Test Item Value Reference Range Interpretation Comments Urine Cannabinoids Screen (test code = 21412-1) NEGATIVE NEGATI VE THESE RESULTS ARE FOR MEDICAL TREATMENT ONLYTHIS REPORT CONTAINS UNCONFIR MED SCREENING RESULTS*POSITIVE RESULTS WILL BE CONFIRMED BY REFERENCE LAB UPON R EQUEST CUT-OFFDRUG CLASS CONCENTRATION ng/mLAmphetamines 1000Methamphetamines 1000Cocaine 300Opiate 300Phencyc lidine 25Cannabinoid 50Barbiturates 300Benzodiazepine 300Methadone 300[facility] methadone [id number] 17:10:00* Test Item Value Reference Range Interpretation Comments Urine Methadone Screen (test code = 94231-9) NEGATIVE NEGATIVE THESE RESULTS ARE FOR MEDICAL TREATMENT ONLYTHIS REPORT CONTAINS UNCONFIR MED SCREENING RESULTS*POSITIVE RESULTS WILL BE CONFIRMED BY REFERENCE LAB UPON R EQUEST CUT-OFFDRUG CLASS CONCENTRATION ng/mLAmphetamines 1000Methamphetamines 1000Cocaine Metabolite 300Opiate 300Phencyc lidine 25Cannabinoid 50Barbiturates 300Benzodiazepine 300Methadone 300[facility] urobilinogen measurement by test strip (mass/volume)2020-03-19 17:10:00* Test Item Value Reference Range Interpretation Comments Urine Urobilinogen (test code = 36064-5) 0.2 0.2-1 [facility] total bilirubin measurement (mass/volume)2020-03-19 17:10:00* Test Item Value Reference Range Interpretation Comments Urine Bilirubin (test code = 1978-6) MODERATE NEGATIVE [facility] erythrocytes [id number] 17:10:00* Test Item Value Reference Range Interpretation Comments Urine Blood (test code = 89993-4) NEGATIVE NEGATIVE [facility]anoAutom[facility] urine sediment leukocyte count by microscopy (number/high power field)2020-03-19 17:10:00* Test Item Value Reference Range Interpretation Comments Urine WBC (test code = 5821-4) 0-5 0-5 [facility]anoErythrocytes detection in urine sediment by light [id number] 17:10:00* Test Item Value Reference Range Interpretation Comments Urine RBC (test code = 39672-6) NONE 0-5 [facility]anoBacteria detection in urine sediment by light [id number] 17:10:00* Test Item Value Reference Range Interpretation Comments Urine Bacteria (test code = 46199-3) MODERATE NONE [facility]anoEpithelial cells detection in urine sediment by light [id number] 17:10:00* Test Item Value Reference Range Interpretation Comments Urine Epithelial Cells (test code = 17802-7) FEW NONE [facility]anoAmorphous sediment detection in urine sediment by light gmdrjjfkvt4044-67-20 17:10:00* Test Item Value Reference Range Interpretation Comments Urine Amorphous Sediment (test code = 8246-1) FEW FEW [facility]anoHyaline casts detection in urine sediment by light kpvnlkceef9974-10-79 17:10:00* Test Item Value Reference Range Interpretation Comments Urine Hyaline Casts (test code = 06500-1) 2-5 0-1 [facility]anoMucus detection in urine sediment by light iuzjgadajl4833-04-56 17:10:00* Test Item Value Reference Range Interpretation Comments Urine Mucus (test code = 8247-9) MODERATE RARE [facility]anoBlood [id number] 17:10:00* Test Item Value Reference Range Interpretation Comments Blood Culture (test code = 79010609) NO GROWTH AFTER 72 HOURS [facility] L-SP[facility] W/O [id number] 10:46:00 Name: CAROL TRIMBLE [facility] : 1960 Age/S: 59 / M [address] [facility] Unit #: [id number] Loc: [place] [address] Phys: Sunil Pedro MD Acct: [id number] Dis Date: Status: REG ER PHONE #: [phone] Exam Date: 12/16/2019 0955 FAX #: [phone] Reason: trauma, pain EXAMS: CPT CODE: [id number] CT L-SPINE W/O CONTRAST 57522 HISTORY: trauma, pain TECHNIQUE: 2.5 mm axial [...] significant foraminal or central canal stenosis. Location: [facility] PAGE 1 Signed Report (C ONTINUED) Name: CAROL TRIMBLE [facility] : 1960 Age/S: 59 / M [address] [facility] it #: [id number] Loc: [place] [address] Phys: Sunil Pedro MD Acct: [id number] Dis Date: Status: REG ER PHONE #: [phone] Exam Date: 12/16/2019 0955 FAX #: [phone] Reason: trauma, pain E XAMS: CPT CODE: [id number] CT L-SPINE W/O CONTRAST 41047 <Continued> at 1046 Reported and signed by: Dariusz Neal MD CC: Sunil Pedro MD; Shay Armijo Techntu gist:KASIE FERNANDES, RT(R),CT CTDI: DLP: Trnscb Date/Time: 12/16/2019 (1046) [email or web address] Orig Print D/T: S: 12/16/2019 (4194) PAGE 2 Signed Report
[2020-07-02 22:36] LABS: INR 1.18; PROTHROMBIN TIME 15.7 seconds (11.9-14.5)
[2020-07-02 22:37] LABS: PARTIAL THROMBOPLASTIN TIME 33.3 seconds (23.8-35.5)
[2020-07-02] MEDS ORDERED: FENTANYL CITRATE/PF 100MCG/2 ML INJ IV STA (23:17)
[2020-07-02] MEDS: SODIUM CHLORIDE 0.9% 1000ML 1,000 ML IV SCH (23:27)
[2020-07-03] VITALS (9 sets, daily range): BP systolic 126–169; BP diastolic 61–97
[2020-07-03] MEDS ORDERED: HYDRALAZINE HCL 20 MG/ML VIAL IV PRN
[2020-07-03] MEDS ORDERED: ACETAMINOPHEN 325 MG TAB PO PRN
[2020-07-03] MEDS ORDERED: DOCUSATE SODIUM 100 MG CAP PO PRN
[2020-07-03] MEDS ORDERED: MELATONIN 5 MG TABLET PO PRN
--- NOTE | 2020-07-03 02:00 | NUR ---
RECEIVED PATIENT FROM THE E.R. VIA STRETCHER. ALERT AND ORIENTED. ASSISTED TO BED. PATIENT WILL BE ON SLIGHT [place] POSITION ACCORDING TO REPORT FROM [facility] ER NURSE PER DR. CHASE. ORIENTED TO ROOM. BED LOCKED, SIDE RAILS UP. CALL LIGHT WITHIN REACHED.
[2020-07-03] MEDS: MORPHINE SULFATE INJ 4 MG/ML INJ 1ML IV PRN ×2 (02:20→07:55)
[2020-07-03] MEDS: ONDANSETRON HCL INJ 2MG/ML 2ML 2 MG/ML VIAL IV PRN ×3 (02:21→20:35)
[2020-07-03] MEDS: PIPER-TAZ 3.375 GM 50 ML IV SCH ×3 (05:58→17:05)
[2020-07-03] MEDS: SODIUM CHLORIDE 0.9% 1000ML 1,000 ML IV SCH (06:28)
--- NOTE | 2020-07-03 07:00 | NUR ---
RECEIVED PATIENT AWAKE RESTING IN BED NO S/S OF DISTRESS. BED LOW, WHEELS LOCKED, SIDE RAILS X2. CALL LIGHT IN REACH WILL CONTINUE TO MONITOR.
[2020-07-03 08:54] LABS: BASOPHILS % 0.8 % (0.0-1.0); EOSINOPHILS # (AUTO) 0.1 (0.0-0.4); EOSINOPHILS % 2.8 % (0.0-6.0); HEMATOCRIT 40.7 % (38.2-49.6); HEMOGLOBIN 13.4 g/dL (14.0-18.0); LYMPHOCYTES # (AUTO) 0.7 (1.0-3.2); LYMPHOCYTES % 18.4 % (18.0-39.1); MEAN CORPUSCULAR HEMOGLOBIN 30.5 pg (28-32); MEAN CORPUSCULAR HGB CONC 32.9 g/dL (31-35); MEAN CORPUSCULAR VOLUME 92.5 fL (81-99); MONOCYTES # (AUTO) 0.5 (0.2-0.8); MONOCYTES % 12.9 % (4.4-11.3); NEUTROPHILS # (AUTO) 2.6 (2.1-6.9); NEUTROPHILS % 64.8 % (38.7-80.0); PLATELET COUNT 65 x10e3/uL (140-360); RED CELL DISTRIBUTION WIDTH 14.8 % (11.7-14.4)
[2020-07-03 09:20] LABS: ALANINE AMINOTRANSFERASE 34 IU/L (0-55); ALBUMIN 2.1 g/dL (3.5-5.0); ALBUMIN/GLOBULIN RATIO 0.5 (0.8-2.0); ALKALINE PHOSPHATASE 340 IU/L (40-150); ANION GAP 10.3 mmol/L (8-16); BLOOD UREA NITROGEN 8 mg/dL (7-26); BUN/CREATININE RATIO 12 (6-25); CARBON DIOXIDE 24 mmol/L (22-29); CHLORIDE 106 mmol/L (98-107); CREATININE, SERUM 0.68 mg/dL (0.72-1.25); EST GLOMERULAR FILTRATION RATE > 60 ML/MIN (60-); GLUCOSE 84 mg/dL (74-118); POTASSIUM 4.3 mmol/L (3.5-5.1); SODIUM 136 mmol/L (136-145)
[2020-07-03] MEDS ORDERED: SODIUM CHLORIDE 0.9% 250ML 250 ML IV ONE (10:00)
[2020-07-03] MEDS ORDERED: PHYTONADIONE 10 MG/ML AMP SQ ONE (10:33)
--- NOTE | 2020-07-03 10:40 | NUR ---
CONSENT SIGNED BY PATIENT FOR PROCEDURE AND PLACED IN PATIENTS CHART.
--- NOTE | 2020-07-03 10:53 | NUR ---
PATIENT LEFT TO OR VIA STRETCHER IN STABLE CONDITION. 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
[2020-07-03] MEDS ORDERED: BUPIVACAINE 0.25%/EPI 30ML SDV INJ ONE (11:18)
[2020-07-03] MEDS ORDERED: VANCOMYCIN HCL 1 GM VIAL ONE (12:13)
[2020-07-03] MEDS ORDERED: NEOSTIGMINE 1 MG/ML 10ML VIAL ONE (13:11)
[2020-07-03] MEDS ORDERED: PANTOPRAZOLE 40 MG 10ML VIAL IV SCH (13:15)
[2020-07-03] MEDS: DEXTROSE 5%/LACTATED RINGERS 1,000 ML IV SCH (13:15)
[2020-07-03] MEDS ORDERED: HYDROMORPHONE 1MG/1ML INJ ONE (13:30)
[2020-07-03] MEDS ORDERED: FENTANYL CITRATE/PF 100MCG/2 ML INJ ONE (13:48)
[2020-07-03] MEDS ORDERED: LIDOCAINE HCL 2% LOCAL INJ 5 ML SDV VIAL INJ ONE (14:34)
[2020-07-03] MEDS ORDERED: PROPOFOL IV EMULSION 10 MG/ML 20 ML VIAL ONE (14:34)
[2020-07-03] MEDS ORDERED: ONDANSETRON HCL INJ 2MG/ML 2ML 2 MG/ML VIAL ONE (14:34)
[2020-07-03] MEDS ORDERED: KETOROLAC TROMETHAMINE 30 MG/ML VIAL ONE (14:34)
[2020-07-03] MEDS ORDERED: DEXAMETHASONE SOD PHOS INJ 4 MG/ML VIAL ONE (14:34)
[2020-07-03] MEDS ORDERED: SEVOFLURANE INHAL SOLN 250 ML PEN BTL ONE (14:34)
[2020-07-03] MEDS ORDERED: ROCURONIUM BROMIDE 10 MG/ML 5ML VIAL IV ONE (14:34)
--- NOTE | 2020-07-03 14:38 | Operative Report ---
DATE OF PROCEDURE: SURGEON: Jeromy Martinez MD PREOPERATIVE DIAGNOSES: Strangulated ventral hernia post alcoholism, cirrhosis of the liver, smoke abuse, hypertension. POSTOPERATIVE DIAGNOSES: Strangulated ventral hernia post alcoholism, cirrhosis of the liver, smoke abuse, hypertension. PROCEDURE PERFORMED: A repair of strangulated femoral hernia. PARANORMAL INVESTIGATOR: Seble Hassan. ESTIMATED BLOOD LOSS: Minimal. DRAINS: None. COMPLICATIONS: None. INDICATION AND FINDINGS: The patient is a 59-year-old alcoholic cirrhotic, who was admitted via the emergency room complaining of right lower quadrant pain for several days, progressively worse and severe 4 hours prior to admission. In the emergency room he underwent a CT scan of the abdomen and that revealed fat and fluid containing within the right femoral hernia with inflammatory changes of the surrounding fat. FINDINGS: Strangulated femoral hernia with a necrotic sac that was empty and some necrosis of the preperitoneal fat surrounding the sac. There was no evidence of bowel seen. There was some murky fluid within the sac, acidic fluid. Of note is the fact that this patient's abdominal exam was entirely benign. He had no vomiting. Because of the necrotic tissue and fear of placing the mesh under potentially contaminated field due to the necrotic bowel, I did not place the mesh and performed a primary autogenous tissue repair. DESCRIPTION OF PROCEDURE: With the patient lying on the operative table in the supine position after administration of general anesthesia, he was prepped and draped for repair of incarcerated femoral hernia. An incision was made low in the groin in order to approach the femoral canal below the inguinal ligament and the dissection was carried out through the skin and subcutaneous tissue, surrounding fat until we identified the sac, which was necrotic. The sac was coming out of the abdominal cavity through a very small defect. After we removed surrounding necrotic fat and properitoneal fat over the mesh, we opened the sac. It was necrotic, some murky fluid that was suctioned out and then the fluid cross tie turner clear after that. It was not possible to ascertain. There was no evidence of any bowel at this point that was incarcerated or had been incarcerated. We made a decision to do a primary repair. We approximated the shelving edge of inguinal ligament along with the iliopubic track to the pectineal fascia inferiorly on the upper part of the thigh until the defect was obliterated. The last stitch was placed in the area of the femoral vein through it near the fascia plane in that location, carefully avoided the vein. At that point we had obliterated the defect. We copiously irrigated the wound. There was no bleeding. At this point, then we closed the subcutaneous tissues in 2 layers to prevent any leakage of fluid. This was accomplished approximating in the subcutaneous tissues in two layers using 0-Vicryl for that. The 3rd and final layer was closed using 2-0 Vicryl in the subcuticular plane. Finally, the skin was closed with a combination of 2-0 silk vertical mattress and maria elena to secure tight closure. Abdominal binder was placed. The patient tolerated the procedure well, was taken to recovery room in stable condition. There was no family waiting for the patient at the end of the procedure. The patient preoperatively clearly understood that because of his cirrhotic condition, he was at a high risk of developing complications, bleeding, infection because of the emergency nature of the case and the inability to put a mesh and he understood that his chances of recurrence were significantly higher than an elective procedure. MD BELINDA Kaur/MARCO /[id number]
[2020-07-03] MEDS: METOPROLOL TARTRATE 50 MG TAB PO SCH (16:49)
[2020-07-03] MEDS: NICOTINE 21 MG/EA PATCH TOP SCH (16:49)
[2020-07-03] MEDS: HYDROCODONE/APAP 7.5MG-325MG 1 EA TAB PO PRN (17:21)
--- NOTE | 2020-07-03 19:40 | NUR ---
BED SIDE SHIFT REPORT RECEIVED FROM RN. PT IS ALERT AND ORIENTED X3. RESPIRATIONS ARE EVEN AND UNLABORED. TELE ON- SR. ABD BINDER ON. SCROTAL SUPPORT ON. HARDIN CATHETER TO GRAVITY- DRAINING CLEAR ALBINA URINE.CALL LIGHT WITHIN REACH. BED IN LOW POSITION.
[2020-07-03] MEDS: HYDROMORPHONE 1MG/1ML INJ IV PRN (20:41)
--- NOTE | 2020-07-03 22:19 | History and Physical ---
CHIEF COMPLAINT: Right inguinal pain. HISTORY OF PRESENT ILLNESS: A 59-year-old male, very poor historian, history of hypertension, chronic alcoholic, who presented to the ED with complaints of right inguinal pain, ongoing for the last several days. The patient reports from last week he noticed that there was a bulge in the right inguinal area and progressively got worse. He reports pain with . He came into the ER for further evaluation. The patient was evaluated by General Surgery, who has taken him to the OR for underlying surgical intervention. The patient was seen postoperatively. He is currently doing well with no other issues at this time. His pain is well controlled. He denies any nausea, vomiting, or any diarrhea. The patient is seen and evaluated. Vital signs are stable during my evaluation. REVIEW OF SYSTEMS: Pertinent positives; right inguinal pain and decreased oral intake. The rest of the 14-point review of systems has been reviewed with the patient and are negative. ALLERGIES: NO KNOWN DRUG ALLERGIES. HOME MEDICATIONS: Aspirin, lisinopril, and metoprolol. PAST MEDICAL HISTORY: Hypertension and chronic alcoholic. PAST SURGICAL HISTORY: Reports none, but now has a right inguinal hernia repair. FAMILY HISTORY: Hypertension and diabetes. SOCIAL HISTORY: No drugs. He is a smoker daily and he is a chronic alcoholic. PHYSICAL EXAMINATION: VITAL SIGNS: Temperature is 99.4, pulse is 66, respiratory rate is 18, blood pressure 164/84, pulse ox 96% on room air. GENERAL: Not in acute distress. Alert and oriented x3. Cooperative on examination. HEENT: Head is normocephalic and atraumatic. Eyes; pupils are equal, round, reactive to light bilaterally. Extraocular movements are intact bilaterally. Throat, no evidence of erythema or exudates in the posterior pharynx. Has poor dentition. NECK: Supple. Good range of motion. PULMONARY: Clear to auscultation bilaterally. No wheezing, no rales, no rhonchi, no crackles appreciated. CARDIOVASCULAR: Positive S1 and S2. No murmurs, rubs, or gallops appreciated. ABDOMEN: Soft, nondistended, and nontender to palpation. Bowel sounds present. MUSCULOSKELETAL: Strength is 5/5 throughout. No evidence of any muscle deficits on examination. No weakness appreciated. SKIN: Intact. Warm to touch. Good cap refill. LABORATORY FINDINGS: Show white count 3.9, hemoglobin 13, hematocrit is 40, and platelets of 65. Coagulation; PT 15, INR 1.1, PTT 33. Chemistry; sodium 136, potassium is 4.3, chloride 106, bicarb 24, anion gap of 10, BUN is 8, creatinine is 0.68, glucose is 84, calcium is 8, total bilirubin is 0.8, AST 57, ALT 34, alkaline phosphatase 340, total protein 6.4, albumin is 2.1. Urine is negative. Urine drug screen positive for opioids. Serology; coronavirus still pending. MICROBIOLOGY: None. IMAGING STUDIES: CT abdomen and pelvis, distended small-bowel loops with incapacitated enteric contents suggestive of low-grade partial small bowel obstruction. soft tissues. This is concerning for underlying incarceration. portal hypertension with splenomegaly, small. . Mild mural thickening of the colon, may be secondary to portal hypertension with mild pertinent diverticulosis coli. Status post cholecystectomy . CT brain, no acute intracranial abnormality. Moderate chronic microvascular ischemic changes. IMPRESSION: 1. Right inguinal hernia, status post repair, performed by General Surgery on 07/03/2020. 2. Chronic alcohol abuse. Monitor for any withdrawals. 3. Hypertension. PLAN: At this time, continue with postop care. IV fluids, pain control, n.p.o. for now. Clear liquid diet tomorrow per General Surgery. . Resume same home medications. Lovenox for DVT prophylaxis likely tomorrow after 24 hours. Since he has had surgery today, we will put him on SCDs. Encourage ambulation with PT and OT. Nicotine patch was applied for his smoking history. MD KANDIS Alfredo/THALIAL /[id number]
[2020-07-04] VITALS (9 sets, daily range): BP systolic 121–171; BP diastolic 72–91
[2020-07-04] MEDS: HYDROMORPHONE 1MG/1ML INJ IV PRN ×3 (00:01→20:47)
[2020-07-04] MEDS: PIPER-TAZ 3.375 GM 50 ML IV SCH ×4 (00:34→16:39)
[2020-07-04] MEDS: DEXTROSE 5%/LACTATED RINGERS 1,000 ML IV SCH (02:35)
[2020-07-04] MEDS: PANTOPRAZOLE 40 MG 10ML VIAL IV SCH (06:00)
[2020-07-04 06:10] LABS: BASOPHILS % 0.4 % (0.0-1.0); EOSINOPHILS % 0.1 % (0.0-6.0); HEMATOCRIT 36.4 % (38.2-49.6); HEMOGLOBIN 12.3 g/dL (14.0-18.0); LYMPHOCYTES # (AUTO) 0.7 (1.0-3.2); MEAN CORPUSCULAR HEMOGLOBIN 32.1 pg (28-32); MEAN CORPUSCULAR HGB CONC 33.8 g/dL (31-35); MONOCYTES # (AUTO) 0.7 (0.2-0.8); MONOCYTES % 9.3 % (4.4-11.3); NEUTROPHILS # (AUTO) 6.3 (2.1-6.9); NEUTROPHILS % 80.8 % (38.7-80.0); RED BLOOD COUNT 3.83 x10e6/uL (4.3-5.7); RED CELL DISTRIBUTION WIDTH 15.2 % (11.7-14.4)
[2020-07-04 06:18] LABS: ANION GAP 10.5 mmol/L (8-16); BLOOD UREA NITROGEN 14 mg/dL (7-26); BUN/CREATININE RATIO 18 (6-25); CALCIUM 8.2 mg/dL (8.4-10.2); CARBON DIOXIDE 24 mmol/L (22-29); CHLORIDE 105 mmol/L (98-107); EST GLOMERULAR FILTRATION RATE > 60 ML/MIN (60-); GLUCOSE 130 mg/dL (74-118); POTASSIUM 4.5 mmol/L (3.5-5.1); SODIUM 135 mmol/L (136-145)
--- NOTE | 2020-07-04 06:30 | NUR ---
Dilaudid given as ordered prn. Pain decreased to 5-6 with med. Albarado remains patent draining nicol colred urine. Pt tolerating clear liquids well.
[2020-07-04] MEDS: HYDROCODONE/APAP 7.5MG-325MG 1 EA TAB PO PRN (07:53)
[2020-07-04] MEDS: ASPIRIN 81 MG CHEW TAB PO SCH (08:45)
[2020-07-04] MEDS: METOPROLOL TARTRATE 50 MG TAB PO SCH ×2 (08:45→16:32)
[2020-07-04] MEDS: LISINOPRIL 20 MG TAB PO SCH (08:46)
[2020-07-04] MEDS: NICOTINE 21 MG/EA PATCH TOP SCH (08:46)
[2020-07-04] MEDS ORDERED: LISINOPRIL 10 MG TAB PO SCH (09:00)
[2020-07-04 09:24] LABS: PLATELET COUNT 90 x10e3/uL (140-360)
--- NOTE | 2020-07-04 15:01 | NUR ---
Albarado removed without difficulty. Pt given urinal for c/o feeling like he has to urinate. C/O that he thinks it will burn and bleed. Reassured and told to call for any problems
[2020-07-04] MEDS ORDERED: ENOXAPARIN SOD INJ 40 MG/0.4 ML SYR SC SCH (17:00)
--- NOTE | 2020-07-04 17:07 | Progress Note ---
DATE: 07/04/2020 Medicine Progress Note SUBJECTIVE: The patient is doing much better today with no complaints. Diet has been advanced. PHYSICAL EXAMINATION: VITAL SIGNS: He is afebrile, normotensive. Respiratory rate is good. GENERAL: Not in acute distress. Alert and oriented x3. Cooperative on examination. HEENT: Head; normocephalic, atraumatic. Eyes; pupils are equal, round, and reactive to light bilaterally. Extraocular movements intact bilaterally. Throat; no evidence of erythema or exudates in the posterior pharynx. Has poor dentition. NECK: Supple. Good range of motion. PULMONARY: Clear to auscultation bilaterally. No wheezing, no rales, no rhonchi, no crackles appreciated. CARDIOVASCULAR: Positive S1 and S2. No murmurs, rubs, or gallops appreciated. ABDOMEN: Soft, nondistended, and nontender to palpation. Bowel sounds present. MUSCULOSKELETAL: Strength is 5/5 throughout. No evidence of any muscle deficits on examination. No weakness appreciated. NEUROLOGIC: Cranial nerves 2 through 12 grossly intact. No evidence of any neurological deficits on exam. SKIN: Intact. Warm to touch. Good cap refill. PSYCHIATRIC: Normal affect and mood. EXTREMITIES: No edema. Good range of motion throughout. LABORATORY DATA: Show CBC stable. Chemistry reviewed, stable. MICROBIOLOGY: None. IMAGING STUDIES: Nothing new. IMPRESSION: 1. Right inguinal hernia, status post repair, performed on 07/03/2020, by General Surgery. 2. Chronic alcohol abuse with no evidence of any withdrawals. 3. Hypertension. PLAN: At this time, continue with postop care, postop day #1. Stop IV fluids. Remove Albarado. Pain control. Advance diet per General Surgery. Lovenox for DVT prophylaxis. Plan to discharge tomorrow if cleared by surgeon. MD KANDIS Alfredo/MARCO /[id number]
[2020-07-04] MEDS: ONDANSETRON HCL INJ 2MG/ML 2ML 2 MG/ML VIAL IV PRN (20:42)
[2020-07-04] MEDS ORDERED: SODIUM CHLORIDE 0.9% 250ML 250 ML ONE (20:45)
[2020-07-05] VITALS: BP 163/91
[2020-07-05] MEDS: HYDROMORPHONE 1MG/1ML INJ IV PRN ×2 (02:24→08:29)
[2020-07-05 04:00] VITALS: BP 133/84
[2020-07-05 05:20] LABS: BASOPHILS % 0.7 % (0.0-1.0); EOSINOPHILS # (AUTO) 0.2 (0.0-0.4); EOSINOPHILS % 3.1 % (0.0-6.0); HEMATOCRIT 38.3 % (38.2-49.6); HEMOGLOBIN 12.7 g/dL (14.0-18.0); LYMPHOCYTES % 17.5 % (18.0-39.1); MEAN CORPUSCULAR HEMOGLOBIN 30.8 pg (28-32); MEAN CORPUSCULAR HGB CONC 33.2 g/dL (31-35); MEAN CORPUSCULAR VOLUME 92.7 fL (81-99); MONOCYTES # (AUTO) 0.7 (0.2-0.8); MONOCYTES % 11.5 % (4.4-11.3); NEUTROPHILS # (AUTO) 3.9 (2.1-6.9); NEUTROPHILS % 66.9 % (38.7-80.0); PLATELET COUNT 103 x10e3/uL (140-360); RED BLOOD COUNT 4.13 x10e6/uL (4.3-5.7)
[2020-07-05 05:50] LABS: ANION GAP 11.2 mmol/L (8-16); BLOOD UREA NITROGEN 12 mg/dL (7-26); BUN/CREATININE RATIO 18 (6-25); CALCIUM 7.9 mg/dL (8.4-10.2); CARBON DIOXIDE 24 mmol/L (22-29); CHLORIDE 105 mmol/L (98-107); CREATININE, SERUM 0.67 mg/dL (0.72-1.25); EST GLOMERULAR FILTRATION RATE > 60 ML/MIN (60-); GLUCOSE 95 mg/dL (74-118); POTASSIUM 4.2 mmol/L (3.5-5.1); SODIUM 136 mmol/L (136-145)
[2020-07-05] MEDS: PANTOPRAZOLE 40 MG 10ML VIAL IV SCH (06:30)
[2020-07-05] MEDS: PIPER-TAZ 3.375 GM 50 ML IV SCH ×3 (07:26→12:04)
[2020-07-05 08:00] VITALS: BP 157/84
[2020-07-05] MEDS: METOPROLOL TARTRATE 50 MG TAB PO SCH (08:35)
[2020-07-05] MEDS: LISINOPRIL 20 MG TAB PO SCH (08:35)
[2020-07-05] MEDS: NICOTINE 21 MG/EA PATCH TOP SCH (08:35)
[2020-07-05] MEDS: ASPIRIN 81 MG CHEW TAB PO SCH (08:35)
[2020-07-05 08:45] VITALS: BP 157/84
--- NOTE | 2020-07-05 11:00 | NUR ---
This literary writer rounded with Dr. Martinez and he told the patient he was clear for discharge and was going to let write him home pain medications, he also stated to follow up with him in 1 week post op.
--- NOTE | 2020-07-05 12:30 | NUR ---
ASSESSMENT: Spiritual concern Pt worried about missing work while recovering at home. Pt states his can help during recovery period. Intervention: Provided empathic listening. Facilitated conversation about support. Provided information on how to reach data operations manager, if needed. Outcome: No need to follow at this time. CHEMA FLOWERS Beading Installer Spiritual Care Department O: [phone]
[2020-07-05 12:35] VITALS: BP 128/76
[2020-07-05] MEDS: HYDROCODONE/APAP 7.5MG-325MG 1 EA TAB PO PRN (13:38)
--- NOTE | 2020-07-05 15:10 | NUR ---
Patient received discharge order from Dr. Brewer once Dr. Taylor Rivera cleared the patient. Patient was given discharge instructions, prescriptions, and education. Patient verbalized understanding. Patient IV was removed and covered with a C/D/I dressing and tele was removed and returned to [facility] at 1430. Patient was wheeled to car at 1505 and had no other issues or complaints.
--- NOTE | 2020-07-06 04:32 | Discharge Summary ---
FINAL DISCHARGE DIAGNOSES: 1. Right inguinal hernia status post repair performed on 07/03/2020, by General Surgery. 2. Chronic alcohol abuse. 3. Hypertension. 4. Chronic pain syndrome on opioid. TARGET SETTER: General Surgery. PHYSICAL EXAMINATION: VITAL SIGNS: Temperature is 98.4, pulse is 80 respiratory rate is 18, blood pressure 128/76, pulse ox 98% on room air. LABORATORY DATA: Show white count 5.8, hemoglobin 12.7, hematocrit 38, platelets of 103. Coagulation; PT 14, INR 1.1, PTT 30. Chemistry; sodium 138, potassium 4.2 chloride 105 bicarb 24, anion gap of 11, BUN is 12, creatinine 0.67, glucose is 95, calcium 7.9. His total bilirubin is 2.4, AST 65, ALT 39, alkaline phosphatase 405, total protein 7.3, albumin 2.5. Urinalysis negative. Toxicology screen positive for opioids. Serology; coronavirus not detected. Microbiology, none. IMAGING STUDIES: CT abdomen and pelvis shows distended small bowel loops with incapacitated enteric contents suggestive of low-grade partial small-bowel obstruction. There is some fat and fluid containing in the right femoral hernia with inflammation of the adjacent soft tissues. This is a concern for underlying incarceration. Cirrhosis and portal hypertension with splenomegaly, small paraesophageal , and small amount of ascites. Mild mural thickening of the colon, may be secondary to portal hypertension. CT brain, no acute intracranial abnormality. Moderate chronic microvascular ischemic changes. HOSPITAL COURSE: A 59-year-old male, comes into the ED with right inguinal pain found to have an incarcerated hernia and a partial small-bowel obstruction. General Surgery was consulted for further management and care. The patient underwent status post right inguinal hernia repair on 07/03/2020. The patient did well post-procedurally. We started on clear liquid diet and then advanced to solid food. He was on pain control as well. The patient's blood pressure was well controlled and managed. The patient was ambulating with no complications. The patient was cleared for discharge by General Surgery. Pain control was provided to the patient prior to being discharged to home. On the day of discharge, vital signs were stable. Labs were reviewed and stable. The patient is seen and evaluated and examined thoroughly on the day of discharge. No other complaints. The patient verbalized understanding and agrees to plan of care to follow up accordingly as an outpatient with the primary care physician in 1 week and General Surgery in 1 to 2 weeks' time. MEDICATIONS: See med reconciliation form. DISPOSITION: Home. CONDITION: Stable. DIET: Heart healthy. In the event of worsening symptoms, the patient was advised to come back to the ED for further evaluation. Discharge summary took greater than 35 minutes. MD KANDIS Alfredo/MODL /[id number]
== END 2020-07-05 15:10 | disposition home or self-care (01) | DRG 352 ==
LOC: ER 17:45 → ERHOLD 21:36 → MED/SURG2 07-03 01:53 → MED/SURG 07-03 13:37
PROVIDERS: ADMIT Internal Medicine; ATTEND Internal Medicine
PROC: 30233R1 Transfusion of Nonautologous Platelets into Peripheral Vein, Percutaneous Approach (ICD-10-PCS; 2020-07-03)
PROC: 0YQ70ZZ Repair Right Femoral Region, Open Approach (ICD-10-PCS; principal; 2020-07-03 11:00)
DX: K41.30 Unilateral femoral hernia, with obstruction, without gangrene, not specified as recurrent (principal); Z11.59 Encounter for screening for other viral diseases; I10 Essential (primary) hypertension; G89.4 Chronic pain syndrome; Z79.891 Long term (current) use of opiate analgesic; K70.30 Alcoholic cirrhosis of liver without ascites; F17.200 Nicotine dependence, unspecified, uncomplicated; F10.20 Alcohol dependence, uncomplicated
CPT/HCPCS: 36415; 70450; 74177; 80048; 80053; 80307; 81001; 85025; 85610; 85730; 86850; 86900; 86920; 88302; 93005; 99284; J1100; J1170; J1650; J1885; J2001; J2250; J2270; J2405; J2543; J2710; J3010; J3370; J3430; J7030; J7050; P9034; Q9967; U0002

== ENCOUNTER 2020-07-12 04:08 | Observation (INO) | payer SELFPAY ==
[~2020-07-12] VITALS: Ht 182.9 cm; Wt 96.6 kg
[~2020-07-12 04:08] MED LIST changes: -FENTANYL CITRATE/PF 100MCG/2 ML INJ ONE; -MIDAZOLAM HCL 2 MG/2 ML VIAL ONE
[2020-07-12 04:37] LABS: BASOPHILS # (AUTO) 0.1 (0.0-0.1); BASOPHILS % 1.3 % (0.0-1.0); EOSINOPHILS # (AUTO) 0.3 (0.0-0.4); EOSINOPHILS % 4.5 % (0.0-6.0); HEMATOCRIT 43.7 % (38.2-49.6); HEMOGLOBIN 14.6 g/dL (14.0-18.0); LYMPHOCYTES # (AUTO) 1.6 (1.0-3.2); LYMPHOCYTES % 22.8 % (18.0-39.1); MEAN CORPUSCULAR HGB CONC 33.4 g/dL (31-35); MEAN CORPUSCULAR VOLUME 92.8 fL (81-99); MONOCYTES # (AUTO) 0.5 (0.2-0.8); MONOCYTES % 7.6 % (4.4-11.3); NEUTROPHILS # (AUTO) 4.3 (2.1-6.9); NEUTROPHILS % 62.3 % (38.7-80.0); PLATELET COUNT 156 x10e3/uL (140-360); RED BLOOD COUNT 4.71 x10e6/uL (4.3-5.7); RED CELL DISTRIBUTION WIDTH 15.2 % (11.7-14.4)
--- NOTE | 2020-07-12 04:45 | Emergency Department Note ---
History of Present Illnes History of Present Illness Chief Complaint: Neurological History of Present Illness This is a 59 year old male WITH H/P ETOH ABUSE, LIVER DISEASE AND RI GHT INGUINAL HERNIA SURGERY LAST WEEK PRESENTS TO THE ER VIA EMS FROM HOME REPORTS OF AMS AND FALL; PT C/O RT FEMORAL PAIN S/P FALL WHEN HE WOKE UP FROM SLEEP AND ATTEMPTED TO GO TO THE RESTROOM; PT DENIES HITTING HEAD OR LOC; PER EMS, ON ARRIVAL, PT WAS DISORIENTED AND COULD NOT TELL EMS HIS NAME BUT COULD RESPOND TO HIS NAME BEING CALLED; PT DENIES ETOH INTAKE THIS EVENING . 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 Onset (how long ago): hour(s) (1) Location: RIGHT HIP PAIN Quality: PAIN, REPORTED CONFUSION Radiation: Reports non-radiation Severity: mild Onset quality: unable to specify Duration (how long): hour(s) (1) Timing of current episode: unable to specify Progression: resolved Chronicity: new Context: Reports recent surgery ( ABOVE), Reports trauma/injury ( ABOVE); Denies recent illness Relieving factors: none Exacerbating factors: none Associated symptoms: Reports denies other symptoms Treatments prior to arrival: none (DAVONTE CAMPOVERDE MD) Past Medical/Family History Physician Review I have reviewed the patient's past medical and family history. Any updates have been documented here. (DAVONTE CAMPOVERDE MD) Past Medical History Recent Fever: No Clinical Suspicion of Infectio: No New/Unexplained Change in Ment: Yes Past Medical History: Hypertension, Chronic Back Pain Other Medical History: LIVER CIRRHOSIS LEFT KNEE PAIN ETOH ABUSE OPIOID PAIN SYNDROME Past Surgical History: Cholecysctectomy, Appendectomy, Hernia Repair Other Surgery: INCARCERATED HERNIA REPAIR (DAVONTE CAMPOVERDE MD) Social History Smoking Cessation: Never Smoker Alcohol Use: Daily Any Illegal Drug Use: No Physically hurt or threatened: No (DAVONTE CAMPOVERDE MD) Other Last Tetanus: UNK (DAVONTE CAMPOVERDE MD) Review of Systems Review of Systems Constitutional: Reports no symptoms EENTM: Reports no symptoms Cardiovascular: Reports no symptoms Respiratory: Reports no symptoms Gastrointestinal: Reports no symptoms Genitourinary: Reports no symptoms Musculoskeletal: Reports as per HPI Integumentary: Reports no symptoms Neurological: Reports as per HPI Psychological: Reports no symptoms Endocrine: Reports no symptoms Hematological/Lymphatic: Reports no symptoms (DAVONTE CAMPOVERDE MD) Physical Exam Related Data Allergies: Coded Allergies: No Known Allergies (Unverified , 02/09/17) Triage Vital Signs Vital Signs Date Time Temp Pulse Resp B/P (MAP) Pulse Ox O2 Delivery O2 Flow Rate FiO2 07/12/20 04:24 98.3 62 18 162/99 100 Room Air Vital signs reviewed: Yes (DAVONTE CAMPOVERDE MD) Physical Exam CONSTITUTIONAL Constitutional: Present well-developed, Present well-nourished; Absent distressed HENT HENT: Present normocephalic, Present atraumatic, Present oropharynx clear/moist, Present nose normal HENT L/R: Present left ext ear normal, Present right ext ear normal EYES Eyes: Reports PERRL, Reports conjunctivae normal, Reports scleral icterus (SLIGHT) NECK Neck: Present ROM normal PULMONARY Pulmonary: Present effort normal, Present breath sounds normal CARDIOVASCULAR Cardiovascular: Present regular rhythm, Present heart sounds normal, Present capillary refill normal, Present normal rate GASTROINTESTINAL Abdominal: Present soft, Present nontender, Present bowel sounds normal GENITOURINARY Genitourinary: Present exam deferred SKIN Skin: Present warm, Present dry MUSCULOSKELETAL Musculoskeletal: Present ROM normal, Present swelling, Present other (RLE SLIGHTLY SHORTENED BUT NO EXTERNAL ROTATION, PULSES INTACT, SURGICAL WOUND RIGHT INGUINAL AREA C/D/I NO SIGN OF INFECTION) NEUROLOGICAL Neurological: Present alert, Present oriented x 3, Present no gross motor or sensory deficits, Present other (MILD ASTERIXIS PRESENT ON EXAM) PSYCHOLOGICAL Psychological: Present mood/affect normal, Present judgement normal (DAVONTE CAMPOVERDE MD) Results Laboratory Laboratory Laboratory Tests Test 07/12/20 04:25 White Blood Count 6.84 x10e3/uL (4.8-10.8) Red Blood Count 4.71 x10e6/uL (4.3-5.7) Hemoglobin 14.6 g/dL (14.0-18.0) Hematocrit 43.7 % (38.2-49.6) Mean Corpuscular Volume 92.8 fL (81-99) Mean Corpuscular Hemoglobin 31.0 pg (28-32) Mean Corpuscular Hemoglobin Concent 33.4 g/dL (31-35) Red Cell Distribution Width 15.2 % (11.7-14.4) Platelet Count 156 x10e3/uL (140-360) Neutrophils (%) (Auto) 62.3 % (38.7-80.0) Lymphocytes (%) (Auto) 22.8 % (18.0-39.1) Monocytes (%) (Auto) 7.6 % (4.4-11.3) Eosinophils (%) (Auto) 4.5 % (0.0-6.0) Basophils (%) (Auto) 1.3 % (0.0-1.0) Neutrophils # (Auto) 4.3 (2.1-6.9) Lymphocytes # (Auto) 1.6 (1.0-3.2) Monocytes # (Auto) 0.5 (0.2-0.8) Eosinophils # (Auto) 0.3 (0.0-0.4) Basophils # (Auto) 0.1 (0.0-0.1) Absolute Immature Granulocyte (auto 0.10 x10e3/uL (0-0.1) Prothrombin Time 15.2 seconds (11.9-14.5) Prothromb Time International Ratio 1.14 Activated Partial Thromboplast Time 33.0 seconds (23.8-35.5) Sodium Level 137 mmol/L (136-145) Potassium Level 4.3 mmol/L (3.5-5.1) Chloride Level 104 mmol/L (98-107) Carbon Dioxide Level 24 mmol/L (22-29) Anion Gap 13.3 mmol/L (8-16) Blood Urea Nitrogen 11 mg/dL (7-26) Creatinine 0.74 mg/dL (0.72-1.25) Estimat Glomerular Filtration Rate > 60 ML/MIN (60-) BUN/Creatinine Ratio 15 (6-25) Glucose Level 100 mg/dL (74-118) Calcium Level 8.4 mg/dL (8.4-10.2) Total Bilirubin 2.5 mg/dL (0.2-1.2) Aspartate Amino Transf (AST/SGOT) 93 IU/L (5-34) Alanine Aminotransferase (ALT/SGPT) 41 IU/L (0-55) Alkaline Phosphatase 482 IU/L (40-150) Ammonia 85 UG/DL (31-123) Creatine Kinase 46 IU/L (30-200) Creatine Kinase MB 1.60 ng/mL (0-5.0) Total Protein 7.5 g/dL (6.5-8.1) Albumin 2.3 g/dL (3.5-5.0) Globulin 5.2 g/dL (2.3-3.5) Albumin/Globulin Ratio 0.4 (0.8-2.0) Ethyl Alcohol Level < 10.0 mg/dL (0.0-10.0) Laboratory Tests Test 07/12/20 04:25 Lab results reviewed: Yes (DAVONTE CAMPOVERDE MD) Lab results reviewed: Yes (NIDA CALDERON MD) Imaging Imaging results reviewed: Yes Impressions Procedure: [id number] DX/HIP RIGHT 2-3 VW (+/- PELVIS) Exam Date: Exam Time: REPORT STATUS: Signed XRAY RIGHT HIP 2 VIEWS HISTORY: Pain. fall COMPARISON: None available. FINDINGS: Bones: No acute displaced fracture. Osseous alignment is within normal limits. Joints: The joint spaces are well-maintained. Soft tissues: Skin maria elena project over the right hip. Pelvic surgical clip. IMPRESSION: No acute fracture or dislocation of the right hip. Signed by: Raissa Payton MD on 07/12/2020 5:48 AM Dictated By: RAISSA PAYTON MD 7 Transcribed By: JOSE on 07/12/20547 COPY TO: DAVONTE CAMPOVERDE MD~ (DAVONTE CAMPOVERDE MD) Imaging results reviewed: Yes (NIDA CALDERON MD) Procedures 12 Lead ECG Interpretation ECG Interpretation : ECG: ECG 1 Dress Designer: Interpreted by ED physician Date: Jul 12, 2020 Time: 04:15 Rhythm: sinus rhythm Rate: normal BPM: 63 QRS axis: normal ST segments normal: Yes T waves normal: Yes Other findings: no other findings Clinical Impression: normal ECG (DAVONTE CAMPOVERDE MD) Assessment & Plan Medical Decision Making MDM PT WITH H/O ETOH ABUSE, LIVER DISEASE WITH FALL TONIGHT AND CONFUSION AFTER FALL THAT HAS RESOLVED, ASTERIXIS PRESENT ON EXAM CBC, CMP, EKG, CARDIAC ENZYMES, ETOH, UA, AMMONIA LEVEL, CT BRAIN , CT C SPINE, CXR, RIGHT HIP ORDERED TO EVAL FOR ANEMIA, ELECTROLYTE ABNORMALITY, UTI, PNEUMONIA, HEPATIC ENCEPHALOPATHY, FRACTURES, INTRACRANIAL INJURY( SUBDURAL HEMATOMA, INTRACRANIAL BLEED, CVA), MYOCARDIAL INFARCTION PT WORKUP ESSENTIALLY NEGATIVE, WILL ADMIT PT OBS FOR TIA I SPOKE WITH DR RUSH COVERING FOR DR BARAJAS, [address] CALDERON (DAVONTE CAMPOVERDE MD) Reassessment Reassessment CT's NEGATIVE, ADMIT DONE BY DR CAMPOVERDE (NIDA CALDERON MD) Assessment & Plan Final Impression: (1) TIA (transient ischemic attack) (2) Confusion (DAVONTE CAMPOVERDE MD) Depart Disposition: ADMITTED Last Vital Signs Date Time Temp Pulse Resp B/P (MAP) Pulse Ox O2 Delivery O2 Flow Rate FiO2 07/12/20 04:24 98.3 62 18 162/99 100 Room Air (DAVONTE CAMPOVERDE MD) Home Meds Reported Medications Aspirin (ASPIRIN) 81 Mg Tab.chew, 81 MG PO DAILY 03/19/20 Lisinopril (LISINOPRIL) 10 Mg Tablet, 20 MG PO DAILY, #30 TAB 03/19/20 Metoprolol Tartrate (METOPROLOL TARTRATE) 50 Mg Tablet, 50 MG PO BID, TAB 02/09/17 DAVONTE CAMPOVERDE MD Jul 12, 2020 04:45 NIDA CALDERON MD Jul 12, 2020 06:52
[2020-07-12 04:48] LABS: INR 1.14; PROTHROMBIN TIME 15.2 seconds (11.9-14.5)
[2020-07-12 04:55] LABS: ALANINE AMINOTRANSFERASE 41 IU/L (0-55); ALBUMIN 2.3 g/dL (3.5-5.0); ALBUMIN/GLOBULIN RATIO 0.4 (0.8-2.0); ALKALINE PHOSPHATASE 482 IU/L (40-150); ANION GAP 13.3 mmol/L (8-16); BLOOD UREA NITROGEN 11 mg/dL (7-26); BUN/CREATININE RATIO 15 (6-25); CALCIUM 8.4 mg/dL (8.4-10.2); CARBON DIOXIDE 24 mmol/L (22-29); CHLORIDE 104 mmol/L (98-107); CREATINE KINASE 46 IU/L (30-200); CREATININE, SERUM 0.74 mg/dL (0.72-1.25); EST GLOMERULAR FILTRATION RATE > 60 ML/MIN (60-); GLUCOSE 100 mg/dL (74-118); POTASSIUM 4.3 mmol/L (3.5-5.1); SODIUM 137 mmol/L (136-145)
--- NOTE | 2020-07-12 05:52 | Diagnostic Imaging Report ---
XRAY RIGHT HIP 2 VIEWS HISTORY: Pain. fall COMPARISON: None available. FINDINGS: Bones: No acute displaced fracture. Osseous alignment is within normal limits. Joints: The joint spaces are well-maintained. Soft tissues: Skin maria elena project over the right hip. Pelvic surgical clip. IMPRESSION: No acute fracture or dislocation of the right hip. Signed by: Bairon Mai MD on 07/12/2020 5:48 AM
[2020-07-12] MEDS ORDERED: ONDANSETRON HCL INJ 2MG/ML 2ML 2 MG/ML VIAL IV PRN (06:00)
[2020-07-12] MEDS ORDERED: SODIUM CHLORIDE FLUSH 10 ML SYR INJ PRN (06:00)
--- NOTE | 2020-07-12 06:00 | Diagnostic Imaging Report ---
EXAMINATION: CHEST SINGLE (PORTABLE) INDICATION: confusion COMPARISON: Chest radiograph dated 03/19/2020 FINDINGS: Stable cardiomegaly. Increased interstitial pulmonary markings. No consolidation. No pleural effusion. No pneumothorax. IMPRESSION: Cardiomegaly with interstitial edema is favored. Atypical pneumonia/viral infection less favored. Signed by: Bairon Mai MD on 07/12/2020 5:57 AM
--- NOTE | 2020-07-12 06:24 | Diagnostic Imaging Report ---
CT BRAIN WO, CT CERVICAL SPINE WO HISTORY: Confusion, fall COMPARISON: Head CT 07/02/2020 TECHNIQUE: Axial noncontrast CT images were obtained through the head and cervical spine. Coronal and sagittal reconstructions obtained from the axial data. One or more of the following dose reduction techniques were used: Automated exposure control, adjustment of the mA and/or kV according to patient size, and/or utilization of iterative reconstruction technique. DISCUSSION: HEAD CT: Scalp/Skull: Unremarkable. Brain sulci: Mildly prominent. Ventricles: Compensatory dilatation. Extra-axial spaces: No masses or fluid collections. Carotid siphon and vertebral artery calcifications are present. Parenchyma: Mild to moderate periventricular white matter hypodensities are likely chronic microvascular ischemic changes. Otherwise, no masses, hemorrhage, or large vascular territory acute infarct. Dural sinuses: No abnormal densities. Sellar/Suprasellar region: Intact. Skull base: Intact. Incidental findings: None. CERVICAL SPINE CT: Shoulder streak artifacts obscure some details. Cervical lordosis is straightened. There is no significant scoliosis. Mild bone demineralization limits evaluation. No definite acute fracture or compression deformity is seen. The craniocervical junction is intact. No gross spinal canal masses are seen. The paravertebral and paraspinal soft tissues are unremarkable. Degenerative changes: Moderate multilevel spondylosis is most prominent at C5-C6. Underlying grade 1 anterolisthesis of C5 on C6 is due to severe right C5-C6 facet arthrosis. There is at least mild canal stenosis at C3-C4 due to posterior disc osteophyte complex. Multilevel mild to moderate bilateral foraminal stenoses are due to uncovertebral and facet arthrosis. Prominent atlantoaxial arthrosis is present as well. Incidental findings: There is mild scarring an emphysematous change at the partially imaged right lung apex. Mild bilateral carotid bulb calcified plaque is present. IMPRESSION: Head CT: 1. No acute intracranial abnormalities. 2. Mild to moderate supratentorial chronic microvascular ischemic change. Mild generalized cerebral volume loss. Cervical Spine CT: 1. No acute osseous abnormalities in the cervical spine. 2. Moderate multilevel spondylosis, most prominent at C5-C6. Underlying grade 1 anterolisthesis of C5 on C6 is due to severe right C5-C6 facet arthrosis. Signed by: Dr. Dru Peter M.D. on 07/12/2020 6:20 AM
[2020-07-12 08:30] VITALS: BP 110/80
--- NOTE | 2020-07-12 08:38 | NUR ---
ASSUMED CARE. PATIENT ARRIVED TO UNIT AT APPROXIMATELY 0825. AAOX3. ACYANOTIC. NO DISTRESS NOTED. CALL LIGHT IN REACH. SIDE RAILS UP X2. BED LOW AND LOCKED.
[2020-07-12 08:39] LABS: CLARITY,URINE SL CLOUDY (CLEAR); COLOR,URINE ORANGE (YELLOW); KETONES,URINE NEGATIVE (NEGATIVE); LEUKOCYTE ESTERASE ,URINE NEGATIVE (NEGATIVE); NITRITE,URINE NEGATIVE (NEGATIVE); PROTEIN,URINE DIPSTICK NEGATIVE (NEGATIVE)
[2020-07-12 08:44] LABS: AMPHETAMINES SCREEN,URINE NEGATIVE (NEGATIVE); PHENCYCLIDINE SCREEN,URINE NEGATIVE (NEGATIVE)
[2020-07-12 08:45] LABS: BENZODIAZEPINES SCREEN,URINE NEGATIVE (NEGATIVE)
[2020-07-12 08:46] LABS: BACTERIA,URINE RARE /HPF; BILIRUBIN,URINE MODERATE (NEGATIVE); EPITHELIAL CELLS,URINE FEW /LPF; RBC,URINE 0-5 /HPF (0-5); WBC,URINE (MAN) 0-5 /HPF (0-5)
[2020-07-12 11:56] VITALS: BP 115/82
--- NOTE | 2020-07-12 12:25 | NUR ---
GAVE PACKET OF INFORMATION WITH [facility] [employer] FOR ASSISTANCE WITH LOW TO NO INCOME TO PATIENT. RESOURCES THAT PATIENT MAY BE ABLE TO FOLLOW UP UPON DISCHARGE. PT EDUCATED ON EACH RESOURCE AND UNDERSTANDING HOW TO FOLLOW UP TO SEE IF QUALIFIED FOR EACH RESOURCE.
--- NOTE | 2020-07-12 13:52 | Consultation ---
DATE OF CONSULTATION: Neurology Consultation HISTORY OF PRESENT ILLNESS: Mr. Linares comes to my attention for delirium and/or confusion from home, which reported initially as a TIA, although clinically does not quite fit. In any case, Mr. Linares is a 59-year-old male, who is a poor historian, who presented with a history of alcohol abuse, liver disease, inguinal hernia surgery last week and had confusion, fall and femoral pain, woke up to go to the restroom. He denies loss of consciousness, but remembers falling. He is a poor historian. PAST MEDICAL HISTORY: Includes hypertension, chronic back pain, liver cirrhosis, knee pain, alcohol abuse, as well as using chronic narcotics for pain control. REVIEW OF SYSTEMS: Knee pain. Endorses that transient nausea, which he thinks he feels better in that regard now. Otherwise, reports no symptoms in a 14-point review of systems. PHYSICAL EXAMINATION: VITAL SIGNS: At time of admission, temperature is 98.3, pulse is 62, and blood pressure 160/99. GENERAL: His speech patterns are slow, but he is oriented x3. He is calm. He follows commands. HEENT: His extraocular muscles are intact. NEUROLOGICAL: His strength is 4/5 in the bilateral upper extremities and 4-/5 in bilateral lower extremities, diffusely weak. His reflexes are symmetric, but diminished. His toes are upgoing bilaterally. ABDOMEN: Soft and nontender. CARDIOVASCULAR: Regular rate and rhythm. PULMONARY: Clear. ASSESSMENT AND PLAN: I am seeing the patient for fall, loss of consciousness, and delirium, who likely had mechanical fall and now he has some confusion, concern for possible seizures as well as concussive syndrome. We will review the imaging and get an EEG if needed. I will give him thiamine and follow from there. physical therapy, PT/OT, rehabilitation as needed. REED SINGH MD RR/MODL /[id number]
--- NOTE | 2020-07-12 14:17 | History and Physical ---
HISTORY OF PRESENT ILLNESS: Mr. Linares is a 59-year-old white male with history of liver cirrhosis, alcohol abuse, tobacco use, and hypertension, who had a right inguinal hernia repair last week. He was brought to the emergency room by EMS today because apparently the only thing the patient recalls is that he went to the restroom and apparently he had a syncopal episode. He stated family heard that he fell and they called the ambulance. PAST MEDICAL HISTORY: He has history of hypertension and liver cirrhosis. ALLERGIES: NO KNOWN DRUG ALLERGIES. SURGICAL HISTORY: Right inguinal hernia repair a week ago. SOCIAL HISTORY: He smokes and he denies a recent alcohol consumption, but he used to drink. PHYSICAL EXAMINATION: GENERAL: He follows commands and he answers questions, but he looks a little slow. VITAL SIGNS: Temperature is 98.3, blood pressure 149/85. HEART: Regular rate. LUNGS: Poor inspiratory effort. ABDOMEN: Soft. He knows his name. He recognizes me. EXTREMITIES: He can move all four extremities. LABORATORY DATA: On the blood work, Pereira virus is pending. Toxicology is positive for opiates. Potassium is 4.3, creatinine is 0.74, and glucose is 100. White count 6.84, hemoglobin is 14.6, and hematocrit 43.7. Urine does not show any white blood cells. IMAGING DATA: Hip x-ray shows no acute fracture. Head CT shows no acute intracranial abnormalities, mild to moderate chronic microvascular ischemic changes. Cervical CT, no acute osseous abnormality, moderate spondylosis. ASSESSMENT: 1. Syncopal episode. 2. Changes in mental status. 3. Probably transient ischemic attack. 4. Liver cirrhosis. 5. Hypertension. 6. Recent right inguinal hernia repair. 7. Positive opiates on the blood, probably medication he was taking for the hernia. PLAN: At present time is to put the patient on observation. So far workup has been negative, we are going to get Dr. Martinez to take a look because the patient is complaining of right inguinal side pain. We are going to get a Neurology consult and we are going to get a Cardiology consult for syncope workup. We are going to get a bilateral carotid Doppler. Further workup is going to depend on the patient's status. Continue lisinopril and metoprolol for blood pressure. All this was discussed in detail with the patient. All questions were answered to satisfaction. MD ERROL Boland/MARCO /[id number]
[2020-07-12 15:55] VITALS: BP 147/71
[2020-07-12] MEDS: DEXTROSE 5%/0.9% SOD CHL 1,000 ML IV SCH (17:50)
[2020-07-12] MEDS: ACETAMINOPHEN/CODEINE 300MG - 30MG TAB PO PRN (17:50)
--- NOTE | 2020-07-12 19:41 | NUR ---
RECEIVED PT IN BED AOX3 ,DENIES PAIN RT AC 20 D5 NS AT 50 CC/HR IS RUNNING ,CALL LIGHT WITH IN REACH ,CONTINUE TO MONITOR
[2020-07-12 20:00] VITALS: BP 120/77
[2020-07-12 20:11] VITALS: BP 147/71
--- NOTE | 2020-07-12 20:19 | Consultation ---
DATE OF CONSULTATION: 07/12/2020 REASON FOR CONSULTATION: Fall, possible syncope. HISTORY OF PRESENT ILLNESS: Mr. Linares is a 59-year-old man with history of liver cirrhosis related to previous alcohol abuse, tobacco abuse, hypertension, who underwent inguinal hernia repair last week. Since then, he reports taking his prescribed pain medications in addition to opioid pills that he had at home which he self prescribed in addition to which he was medically prescribed. He describes chronic opioid use, however, he had quit until recently when the pain from hernia led to the patient resuming intake of these pills. While ambulating to the restroom, he had an episode of loss of balance and fall. He denies any loss of consciousness. The family heard fall and the patient was brought to the hospital. He currently denies any chest pain or shortness of breath. He denies any recent preceding symptoms surrounding the event including absence of palpitations, chest pain, or shortness of breath. REVIEW OF SYSTEMS: A 12-system review is negative except for as noted above. PAST MEDICAL HISTORY: Remarkable for hypertension, liver cirrhosis. ALLERGIES: NO KNOWN DRUG ALLERGIES. PAST SURGICAL HISTORY: Right inguinal hernia repair. SOCIAL HISTORY: History of alcohol abuse. Denies recent use. Does smoke. He denies illicit drug use. PHYSICAL EXAMINATION: VITAL SIGNS: Temperature 97.9, heart rate 68, respiratory rate 16, blood pressure 147/71, O2 saturation 98% on room air. GENERAL: No acute distress. Alert. NECK: No JVD. CHEST: Clear to auscultation. CARDIOVASCULAR: Regular rate and rhythm. Normal S1, S2. No S3 or S4. ABDOMEN: Soft. Bowel sounds positive. EXTREMITIES: Trace edema to both lower extremities. Hyperpigmented changes to lower half of legs. CARDIOVASCULAR MEDICATIONS: Reviewed. STUDIES: Reviewed. White blood cell 6.8, hemoglobin 14.6, platelets 156. INR 1.1. Sodium 137, potassium 4.3, chloride 104, bicarbonate 24, BUN 11, creatinine 0.7, total bilirubin 2.5, AST 93, ALT 41, alkaline phosphatase 482, ammonia 85. Troponin I 0.062. Total protein 7.5, albumin 2.3. Telemetry, in sinus rhythm. EKG reviewed. Carotid ultrasound with no hemodynamically significant extracranial carotid artery stenosis and antegrade vertebral flow bilaterally. Echocardiogram with preserved left ventricular systolic function, LVEF 60% to 65% and no significant valvular abnormality. ASSESSMENT AND PLAN: 1. Presyncopal episode versus loss of balance in the setting of opiate use with underlying history of liver cirrhosis. 2. History of hypertension. Recommend continue hydration. 3. Consider checking orthostatics in a.m. If negative and symptoms resolve, okay to discharge from a cardiovascular standpoint. While in-house, keep on telemetry. So far no evidence of arrhythmias. Thank you, Dr. Renae, for the opportunity to participate in the care of this patient. Please call with any questions. Jorge L Laureano MD AFV/MODL /[id number]
[2020-07-13] VITALS: BP 143/79
[2020-07-13 04:00] VITALS: BP 155/85
[2020-07-13 05:03] LABS: BASOPHILS # (AUTO) 0.1 (0.0-0.1); BASOPHILS % 1.4 % (0.0-1.0); EOSINOPHILS # (AUTO) 0.2 (0.0-0.4); EOSINOPHILS % 3.9 % (0.0-6.0); HEMATOCRIT 38.1 % (38.2-49.6); HEMOGLOBIN 12.8 g/dL (14.0-18.0); LYMPHOCYTES # (AUTO) 1.2 (1.0-3.2); LYMPHOCYTES % 22.9 % (18.0-39.1); MEAN CORPUSCULAR HEMOGLOBIN 30.8 pg (28-32); MEAN CORPUSCULAR HGB CONC 33.6 g/dL (31-35); MEAN CORPUSCULAR VOLUME 91.8 fL (81-99); MONOCYTES # (AUTO) 0.5 (0.2-0.8); MONOCYTES % 10.3 % (4.4-11.3); NEUTROPHILS # (AUTO) 3.1 (2.1-6.9); NEUTROPHILS % 60.9 % (38.7-80.0); PLATELET COUNT 116 x10e3/uL (140-360); RED BLOOD COUNT 4.15 x10e6/uL (4.3-5.7); RED CELL DISTRIBUTION WIDTH 15.2 % (11.7-14.4)
--- NOTE | 2020-07-13 05:05 | NUR ---
PT RESTED DURING THE NIGHT AND DENIES PAIN CALL LIGHT WITH IN REACH ,CONTINUE TO MONITOR
[2020-07-13 05:22] LABS: ALANINE AMINOTRANSFERASE 37 IU/L (0-55); ALKALINE PHOSPHATASE 441 IU/L (40-150); BLOOD UREA NITROGEN 10 mg/dL (7-26); BUN/CREATININE RATIO 16 (6-25); CALCIUM 8.1 mg/dL (8.4-10.2); CARBON DIOXIDE 22 mmol/L (22-29); CHLORIDE 107 mmol/L (98-107); CREATININE, SERUM 0.62 mg/dL (0.72-1.25); EST GLOMERULAR FILTRATION RATE > 60 ML/MIN (60-); GLUCOSE 86 mg/dL (74-118); SODIUM 137 mmol/L (136-145)
[2020-07-13] MEDS: DEXTROSE 5%/0.9% SOD CHL 1,000 ML IV SCH ×2 (06:44→19:25)
--- NOTE | 2020-07-13 07:05 | NUR ---
BEDSIDE REPORT GIVEN TO THE ONCOMING NURSE
[2020-07-13 07:42] LABS: ALBUMIN 2.4 g/dL (3.5-5.0); ALBUMIN/GLOBULIN RATIO 0.6 (0.8-2.0)
[2020-07-13 08:05] VITALS: BP 139/90
--- NOTE | 2020-07-13 09:27 | Progress Note ---
DATE: 07/13/2020 SUBJECTIVE: Mr. Linares is a 59-year-old male with history of liver cirrhosis, alcohol abuse, tobacco use, and hypertension who recently had a right inguinal hernia repair who was taking opioids. As per patient, he went to the restroom and apparently he had a syncopal or presyncopal episode. He is not very sure exactly what happened. The family called the ambulance and he was brought to the emergency room. He has been seen by intellectual property legal assistant and neurologist. PHYSICAL EXAMINATION: GENERAL: Today, he is awake. He is alert. He is feeling a little better. VITAL SIGNS: Temperature is 98.1, blood pressure 139/90. HEART: Regular rate. LUNGS: Clear to auscultation. ABDOMEN: Distended and soft. LABORATORY DATA: On the blood work, white count is 5.07, hemoglobin is 12.8, hematocrit 38.1, potassium 4.0, creatinine is 0.62, glucose is 86. COVID test is still pending. Toxicology showed opioids. IMAGING DATA: Head CT showed no acute intracranial abnormalities. Cervical spine CT, no acute osseous abnormalities in the cervical spine. Carotid Doppler showed some carotid disease without significant carotid stenosis. Echocardiogram shows ejection fraction of 60%. ASSESSMENT: 1. Syncopal episode. 2. Confusion. 3. Rule out transient ischemic attack. 4. Liver cirrhosis. 5. Hypertension. 6. Right inguinal hernia repair recently. 7. Positive opiates in the drug screening. PLAN: At the present time is to continue to monitor the patient. So far, he has been doing okay. He is being seen by intellectual property legal assistant and recommended PT, OT, and probably EEG if he needs it. Also seen by intellectual property legal assistant. The patient is on telemetry. No arrhythmias at the present time. We are going to continue workup. If the patient is stable and workup remains negative, he may be able to go home tomorrow. All this was discussed in detail with the patient. All questions were answered to satisfaction. MD ERROL Boland/MARCO /[id number]
[2020-07-13] MEDS: THIAMINE HCL INJ 100 MG in SODIUM CHLORIDE 0.9% 50ML 50 ML IV SCH (09:30)
[2020-07-13] MEDS: CYANOCOBALAMIN 1,000 MCG TAB PO SCH (09:30)
--- NOTE | 2020-07-13 09:58 | NUR ---
awake calm less disoriented vs 97.9 61 143/79 GENERAL: His speech patterns are slow, but he is oriented x3. He is calm. He follows commands. HEENT: His extraocular muscles are intact. NEUROLOGICAL: His strength is 4/5 in the bilateral upper extremities and 4-/5 in bilateral lower extremities, diffusely weak. His reflexes are symmetric, but diminished. His toes are upgoing bilaterally. ABDOMEN: Soft and nontender. CARDIOVASCULAR: Regular rate and rhythm. PULMONARY: Clear. ASSESSMENT AND PLAN: I am seeing the patient for fall, loss of consciousness, and delirium, who likely had mechanical fall and now he has some confusion, concern for possible seizures as well as concussive syndrome. eeg will be ordered mri brain ordered
--- NOTE | 2020-07-13 10:26 | NUR ---
ok to dc telemetry for mri
--- NOTE | 2020-07-13 12:00 | NUR ---
DR Mares notified, pt refused MRI
[2020-07-13 12:26] VITALS: BP 139/90
--- NOTE | 2020-07-13 19:18 | NUR ---
RECEIVED PT IN BED AOX3 , RESPIRATIONS ARE EVEN AND UNLABORED RT AC 20 D5 NS AT 50 CC/HR IS RUNNING ,CALL LIGHT WITH IN REACH ,CONTINUE TO MONITOR
[2020-07-13 19:29] VITALS: BP 139/90
[2020-07-13 20:00] VITALS: BP 150/97
--- NOTE | 2020-07-13 20:59 | Progress Note ---
DATE: 07/13/2020 Cardiology Progress Note SUBJECTIVE: No new events, echo with preserved left ventricular systolic function. No significant carotid disease, undergoing neuro evaluation. MRI ordered and pending. OBJECTIVE: Vital signs reviewed and stable. LABORATORY DATA: Creatinine 0.6, hemoglobin 12.8, and platelets 116. ASSESSMENT AND PLAN: Fall in the setting of opiate overuse in the context of underlying liver cirrhosis. Okay to discharge from a cardiovascular standpoint once other treating physicians workup complete. Avoidance of opiates advised. Jorge L Laureano MD AFV/MODL /[id number]
[2020-07-13] MEDS: ACETAMINOPHEN/CODEINE 300MG - 30MG TAB PO PRN (21:47)
[2020-07-13] MEDS ORDERED: CLONIDINE HCL 0.1 MG TAB PO PRN (23:15)
[2020-07-14] VITALS: BP 180/99
[2020-07-14 04:00] VITALS: BP 128/76
--- NOTE | 2020-07-14 06:02 | NUR ---
PT C/O PAIN ONE TIME AND GIVEN ORDERED PAIN MEDICATION .PT RESTING .CONTINUE TO MONITOR
--- NOTE | 2020-07-14 07:05 | NUR ---
BEDSIDE REPORT GIVEN TO THE ONCOMING NURSE
--- NOTE | 2020-07-14 07:42 | NUR ---
eeg - 30 min study eeg uses a 10/20 international electrode placement system 21 channel study, read in bipolar and transverse montages EEG data 9hz pdr , 20-50mV, reactive vertex slowing 6-7hz intermittent theta slow waves- bitemporal stage 1 and 2 sleep captured central high amplitude V waves sleep spindles 13-16hz EEG interpretation: abnormal I vs drowsiness EEG shows intermittent therta waves and intermittent bakcground slowing, this may represent mild encephalopathy vs drowsiness and stage I sleep. patient does however enter stage 1 and 2 sleep no siezures or focal dysfunction captured on this EEG
--- NOTE | 2020-07-14 07:49 | NUR ---
awake, calm 98.1 55 150/97 GENERAL: His speech patterns are slow, but he is oriented x3. He is calm. He follows commands. HEENT: His extraocular muscles are intact. NEUROLOGICAL: His strength is 4/5 in the bilateral upper extremities and 4-/5 in bilateral lower extremities, diffusely weak. His reflexes are symmetric, but diminished. His toes are upgoing bilaterally. ABDOMEN: Soft and nontender. CARDIOVASCULAR: Regular rate and rhythm. PULMONARY: Clear. ASSESSMENT AND PLAN: I am seeing the patient for fall, loss of consciousness, and delirium, who likely had mechanical fall and now he has some confusion, concern for possible seizures as well as concussive syndrome. seems to be improving EEG reasurring outpt follow up for post concussive confusion and therapy patient has no acute complaints at this time minimize sedation
[2020-07-14 08:00] VITALS: BP 131/78
[2020-07-14] MEDS: DEXTROSE 5%/0.9% SOD CHL 1,000 ML IV SCH (08:45)
[2020-07-14] MEDS ORDERED: METOPROLOL TARTRATE 50 MG TAB PO SCH (09:00)
[2020-07-14] MEDS: THIAMINE HCL INJ 100 MG in SODIUM CHLORIDE 0.9% 50ML 50 ML IV SCH (09:00)
[2020-07-14] MEDS ORDERED: ASPIRIN 81 MG CHEW TAB PO SCH (09:00)
[2020-07-14] MEDS ORDERED: LISINOPRIL 10 MG TAB PO SCH (09:00)
[2020-07-14] MEDS: CYANOCOBALAMIN 1,000 MCG TAB PO SCH (09:07)
[2020-07-14 09:23] VITALS: BP 131/78
--- NOTE | 2020-07-14 10:01 | Discharge Summary ---
HISTORY: Mr. Linares is a 59-year-old man with history of liver cirrhosis, alcohol abuse, tobacco abuse, hypertension, recently had hernia surgery, and he was taking opioids. He also took Soma several nights to sleep that he got from his back doctor. Apparently, he was going to the restroom and he had like a syncopal episode. The family called 911 and he was brought to the emergency room. Since here, he has been feeling much better. He has been cleared by rope coiling machine operator and neurologist. He was not able to tolerate the MRI, so brain MRI was not done, but the rest of the workup was negative. PHYSICAL EXAMINATION: GENERAL: Today, he is awake and alert. VITAL SIGNS: Temperature is 96.5, blood pressure 128/76. HEART: Regular rate. LUNGS: Clear to auscultation. ABDOMEN: Soft. LABORATORY DATA: On the blood work; white count is 5.07, hemoglobin 12.8, hematocrit 38.1. Potassium 4.0, creatinine 0.62, glucose 86. COVID test was negative. Carotid Doppler, no significant stenoses. Head CT was normal. DISCHARGE DIAGNOSES: 1. Syncopal episode. 2. Confusion probably due to opioids and Soma intake. 3. Liver cirrhosis. 4. Hypertension. 5. Status post right inguinal hernia repair. PLAN: At present time, his confusion is better. He has been cleared by rope coiling machine operator and neurologist yesterday. PT/OT was working with him and he was able to walk in the hallway with no problems, so the plan is to discharge him home. Continue home medications. Follow up with me in one week and follow up with Dr. Martinez for stitches removal as directed by him. Please see home medication reconciliation list. All this was discussed with the patient. All questions were answered to satisfaction. MD ERROL Boland/MARCO /[phone]
[2020-07-14 12:00] VITALS: BP 142/92
--- NOTE | 2020-07-14 13:31 | NUR ---
patient discharged. IV access removed. telemetry removed. patient and clear on discharge instructions and follow up appts needed. pt wheeled off unit to 's personal vehicle in stable condition.
== END 2020-07-14 13:22 | disposition home or self-care (01) ==
LOC: ER 04:11 → ERHOLD 06:58 → MED/SURG2 08:29
PROVIDERS: ADMIT Internal Medicine; ATTEND Internal Medicine
DX: R41.0 Disorientation, unspecified (principal); I10 Essential (primary) hypertension; F10.10 Alcohol abuse, uncomplicated; K70.30 Alcoholic cirrhosis of liver without ascites; F17.200 Nicotine dependence, unspecified, uncomplicated; G89.29 Other chronic pain; M54.9 Dorsalgia, unspecified; Z79.891 Long term (current) use of opiate analgesic; Z11.59 Encounter for screening for other viral diseases
CPT/HCPCS: 36415 ×2; 70450; 71045; 72125; 73502; 80053 ×2; 80307; 80320; 81001; 82140; 82550; 82553; 82607; 83874; 84425; 84484; 85025 ×2; 85610; 85730; 93005; 93306; 93880; 95812; 97116 ×2; 97161; 97530; 99285; G0378 ×3; J3411 ×2; J7042 ×2; U0002

== ENCOUNTER 2020-08-09 17:56 | Emergency (ER) | payer SELFPAY ==
[~2020-08-09] VITALS: Ht 182.9 cm; Wt 96.6 kg
[2020-08-09] MEDS ORDERED: KETOROLAC TROMETHAMINE 30 MG/ML VIAL IV STA (18:50)
--- NOTE | 2020-08-09 18:59 | Emergency Department Note ---
History of Present Illnes History of Present Illness Chief Complaint: Abdominal Complaints History of Present Illness This is a 59 year old male IN FROM HOME WITH COMPLAINTS OF ABDOMINAL PAIN AND LOOSE STOOLS X 2 WEEKS; STATES HAD A HERNIA REPAIR APPROXIMATELY 3 WEEKS AGO. PATIENT ALERT AND ORIENTED, RESP EVEN AND NONLABORED, APPEARS IN NO DISTRESS . STATES THE TYLENOL #3 HE HAS IS NOT STRONG ENOUGH FOR HIS PAIN Historian: Patient Arrival Mode: Car Onset (how long ago): week(s) (2) Location: RIGHT LOWER ABD Quality: PAIN Radiation: Reports non-radiation Severity: severe Onset quality: gradual Duration (how long): week(s) (2) Timing of current episode: constant Progression: unchanged Chronicity: new Context: Reports recent surgery (RIGHT INGUINAL HERNIA REPAIR 07/03/20) Relieving factors: none Exacerbating factors: none Associated symptoms: Reports other (LOOSE STOOLS) Past Medical/Family History Physician Review I have reviewed the patient's past medical and family history. Any updates have been documented here. Past Medical History Recent Fever: No Clinical Suspicion of Infectio: No New/Unexplained Change in Ment: No Past Medical History: Hypertension, A-Fib, Chronic Back Pain Other Medical History: LIVER CIRRHOSIS LEFT KNEE PAIN ETOH ABUSE OPIOID PAIN SYNDROME Past Surgical History: Cholecysctectomy, Appendectomy, Hernia Repair Other Surgery: INCARCERATED HERNIA REPAIR Social History Smoking Cessation: Current every day smoker Alcohol Use: Occasional Any Illegal Drug Use: No Family History Family history of heart diseas: No Other Last Tetanus: UNK Review of Systems Review of Systems Constitutional: Reports no symptoms EENTM: Reports no symptoms Cardiovascular: Reports no symptoms Respiratory: Reports no symptoms Gastrointestinal: Reports as per HPI Genitourinary: Reports no symptoms Musculoskeletal: Reports no symptoms Integumentary: Reports no symptoms Neurological: Reports no symptoms Psychological: Reports no symptoms Endocrine: Reports no symptoms Hematological/Lymphatic: Reports no symptoms Physical Exam Related Data Allergies: Coded Allergies: No Known Allergies (Unverified , 02/09/17) Triage Vital Signs Vital Signs Date Time Temp Pulse Resp B/P (MAP) Pulse Ox O2 Delivery O2 Flow Rate FiO2 08/09/20 18:43 98.3 107 20 150/110 98 Room Air Vital signs reviewed: Yes Physical Exam CONSTITUTIONAL Constitutional: Present well-developed, Present well-nourished; Absent distressed HENT HENT: Present normocephalic, Present atraumatic, Present oropharynx clear/moist, Present nose normal HENT L/R: Present left ext ear normal, Present right ext ear normal EYES Eyes: Reports PERRL, Reports conjunctivae normal NECK Neck: Present ROM normal PULMONARY Pulmonary: Present effort normal, Present breath sounds normal CARDIOVASCULAR Cardiovascular: Present regular rhythm, Present heart sounds normal, Present capillary refill normal, Present normal rate GASTROINTESTINAL Abdominal: Present soft, Present bowel sounds normal, Present tender (MODERATE RLQ TENDERNESS); Absent guarding, Absent mass, Absent rebound GENITOURINARY Genitourinary: Present exam deferred SKIN Skin: Present warm, Present dry MUSCULOSKELETAL Musculoskeletal: Present ROM normal NEUROLOGICAL Neurological: Present alert, Present oriented x 3, Present no gross motor or sensory deficits PSYCHOLOGICAL Psychological: Present mood/affect normal, Present judgement normal Results Laboratory Laboratory Laboratory Tests Test 08/09/20 21:00 08/09/20 18:45 White Blood Count 9.96 x10e3/uL (4.8-10.8) Red Blood Count 4.85 x10e6/uL (4.3-5.7) Hemoglobin 14.8 g/dL (14.0-18.0) Hematocrit 43.9 % (38.2-49.6) Mean Corpuscular Volume 90.5 fL (81-99) Mean Corpuscular Hemoglobin 30.5 pg (28-32) Mean Corpuscular Hemoglobin Concent 33.7 g/dL (31-35) Red Cell Distribution Width 14.4 % (11.7-14.4) Platelet Count 164 x10e3/uL (140-360) Neutrophils (%) (Auto) 73.8 % (38.7-80.0) Lymphocytes (%) (Auto) 9.8 % (18.0-39.1) Monocytes (%) (Auto) 8.1 % (4.4-11.3) Eosinophils (%) (Auto) 6.5 % (0.0-6.0) Basophils (%) (Auto) 1.2 % (0.0-1.0) Neutrophils # (Auto) 7.3 (2.1-6.9) Lymphocytes # (Auto) 1.0 (1.0-3.2) Monocytes # (Auto) 0.8 (0.2-0.8) Eosinophils # (Auto) 0.7 (0.0-0.4) Basophils # (Auto) 0.1 (0.0-0.1) Absolute Immature Granulocyte (auto 0.06 x10e3/uL (0-0.1) Sodium Level 135 mmol/L (136-145) Potassium Level 4.1 mmol/L (3.5-5.1) Chloride Level 102 mmol/L (98-107) Carbon Dioxide Level 23 mmol/L (22-29) Anion Gap 14.1 mmol/L (8-16) Blood Urea Nitrogen 9 mg/dL (7-26) Creatinine 0.73 mg/dL (0.72-1.25) Estimat Glomerular Filtration Rate > 60 ML/MIN (60-) BUN/Creatinine Ratio 12 (6-25) Glucose Level 111 mg/dL (74-118) Calcium Level 8.8 mg/dL (8.4-10.2) Total Bilirubin 3.3 mg/dL (0.2-1.2) Aspartate Amino Transf (AST/SGOT) 105 IU/L (5-34) Alanine Aminotransferase (ALT/SGPT) 52 IU/L (0-55) Alkaline Phosphatase 446 IU/L (40-150) Total Protein 8.2 g/dL (6.5-8.1) Albumin 3.0 g/dL (3.5-5.0) Globulin 5.2 g/dL (2.3-3.5) Albumin/Globulin Ratio 0.6 (0.8-2.0) Amylase Level 57 U/L (25-125) Lipase 47 U/L (8-78) Urine Color [place] (YELLOW) Urine Clarity Clear (CLEAR) Urine pH 5.5 (5 - 7) Urine Specific [place] 1.025 (1.010-1.025) Urine Protein Negative (NEGATIVE) Urine Glucose (UA) Negative (NEGATIVE) Urine Ketones Negative (NEGATIVE) Urine Blood Negative (NEGATIVE) Urine Nitrite Negative (NEGATIVE) Urine Bilirubin Moderate (NEGATIVE) Urine Urobilinogen 0.2 mg/dL (0.2 - 1) Urine Leukocyte Esterase Negative (NEGATIVE) Urine RBC 0-5 /HPF (0-5) Urine WBC 6-10 /HPF (0-5) Urine Epithelial Cells Few /LPF (NONE) Urine Bacteria Moderate /HPF (NONE) Urine Hyaline Casts 2-5 (0-1) Urine Mucus Many (RARE) Urine Opiates Screen Positive (NEGATIVE) Urine Methadone Screen Negative (NEGATIVE) Urine Barbiturates Screen Negative (NEGATIVE) Urine Phencyclidine Screen Negative (NEGATIVE) Urine Amphetamines Screen Negative (NEGATIVE) Urine Methamphetamines Screen Negative (NEGATIVE) Urine Benzodiazepines Screen Positive (NEGATIVE) Urine Cocaine Screen Negative (NEGATIVE) Urine Cannabinoids Screen Negative (NEGATIVE) Lab results reviewed: Yes Imaging Imaging results reviewed: Yes Impressions Procedure: [id number] CT/CT ABDOMEN/PELVIS W Exam Date: 08/09/20 Exam Time: 2213 REPORT STATUS: Signed EXAM: CT Abdomen and Pelvis WITH contrast INDICATION: Right-sided abdominal pain COMPARISON: Abdominal CT 07/02/2020. TECHNIQUE: Abdomen and pelvis were scanned utilizing a multidetector helical scanner from the lung base to the pubic symphysis after administration of IV contrast. Coronal and sagittal reformations were obtained. Routine protocol was performed. Scan was performed when during portal venous phase. IV CONTRAST: 100 mL of Isovue 370 ORAL CONTRAST: None COMPLICATIONS: None RADIATION DOSE: Total DLP: 607 mGy*cm Estimated effective dose: (DLP x 0.015 x size factor) mSv CTDIvol has been reviewed. It is below the limits set by the Radiation Protocol Committee (RPC). Dose modulation, iterative reconstruction, and/or weight based adjustment of the mA/kV was utilized to reduce the radiation dose to as low as reasonably achievable. FINDINGS: LINES and TUBES: None. LOWER THORAX: Mild left atrial dilation. Moderate left pleural effusion. HEPATOBILIARY: Mild surface contour nodularity and widened intrahepatic fissures. No focal hepatic lesions. There is intra- and extra- hepatic biliary dilation likely post cholecystectomy reservoir effect. GALLBLADDER: Removed. SPLEEN: Mild splenomegaly. PANCREAS: No focal masses or ductal dilatation. ADRENALS: No adrenal nodules KIDNEYS/URETERS: Kidneys enhance symmetrically. No hydronephrosis. No cystic or solid mass lesions. No stones. GI TRACT: Mild wall thickening of the small and large bowel. No evidence of bowel obstruction. Surgical changes of appendectomy. PELVIC ORGANS/BLADDER: Unremarkable. LYMPH NODES: No lymphadenopathy. VESSELS: Gastroesophageal and anorectal varices.. Atherosclerotic calcifications. PERITONEUM / RETROPERITONEUM: Mesenteric fat stranding. Trace ascites. No free air. BONES: There are degenerative changes in the spine. 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 Moderate left pleural effusion. Mild cardiomegaly. Signed by: Dougie Mckeon DO on 08/09/2020 11:06 PM Dictated By: DOUGIE MCKEON DO 05 Transcribed By: JOSE on 08/09/202305 COPY TO: DAVONTE CAMPOVERDE MD~ Assessment & Plan Medical Decision Making MDM PT WITH RLQ PAIN FOR 2 WEEKS, RECENT RIGHT INGUINAL HERNIA REPAIR CBC, CMP, AMYLASE, LIPASE, UA, CT ABD/PELVIS ORDERED TO EVAL FOR SBO, COLITIS, UTI, KIDNEY STONE TORADOL 30 MG IV ORDERED Assessment & Plan Final Impression: (1) Chronic pain Depart Disposition: HOME, SELF-CARE Last Vital Signs Date Time Temp Pulse Resp B/P (MAP) Pulse Ox O2 Delivery O2 Flow Rate FiO2 08/09/20 18:43 98.3 107 20 150/110 98 Room Air Home Meds Reported Medications Aspirin (ASPIRIN) 81 Mg Tab.chew, 81 MG PO DAILY 03/19/20 Lisinopril (LISINOPRIL) 10 Mg Tablet, 20 MG PO DAILY, #30 TAB 03/19/20 Metoprolol Tartrate (METOPROLOL TARTRATE) 50 Mg Tablet, 50 MG PO BID, TAB 02/09/17 DAVONTE CAMPOVERDE MD Aug 09, 2020 18:59
[2020-08-09 19:30] LABS: CLARITY,URINE CLEAR (CLEAR); COLOR,URINE AMBER (YELLOW); KETONES,URINE NEGATIVE (NEGATIVE); LEUKOCYTE ESTERASE ,URINE NEGATIVE (NEGATIVE); NITRITE,URINE NEGATIVE (NEGATIVE); PROTEIN,URINE DIPSTICK NEGATIVE (NEGATIVE)
[2020-08-09 19:31] LABS: AMPHETAMINES SCREEN,URINE NEGATIVE (NEGATIVE); BENZODIAZEPINES SCREEN,URINE POSITIVE (NEGATIVE); BILIRUBIN,URINE MODERATE (NEGATIVE); PHENCYCLIDINE SCREEN,URINE NEGATIVE (NEGATIVE); URINE UROBILINOGEN 0.2 mg/dL (0.2 - 1)
[2020-08-09 19:41] LABS: BACTERIA,URINE MODERATE /HPF; RBC,URINE 0-5 /HPF (0-5)
[2020-08-09 19:42] LABS: EPITHELIAL CELLS,URINE FEW /LPF; MUCUS,URINE MANY (RARE)
[2020-08-09 21:13] LABS: BASOPHILS # (AUTO) 0.1 (0.0-0.1); BASOPHILS % 1.2 % (0.0-1.0); EOSINOPHILS # (AUTO) 0.7 (0.0-0.4); EOSINOPHILS % 6.5 % (0.0-6.0); HEMATOCRIT 43.9 % (38.2-49.6); HEMOGLOBIN 14.8 g/dL (14.0-18.0); LYMPHOCYTES % 9.8 % (18.0-39.1); MEAN CORPUSCULAR HEMOGLOBIN 30.5 pg (28-32); MEAN CORPUSCULAR HGB CONC 33.7 g/dL (31-35); MEAN CORPUSCULAR VOLUME 90.5 fL (81-99); MONOCYTES # (AUTO) 0.8 (0.2-0.8); MONOCYTES % 8.1 % (4.4-11.3); NEUTROPHILS # (AUTO) 7.3 (2.1-6.9); NEUTROPHILS % 73.8 % (38.7-80.0); PLATELET COUNT 164 x10e3/uL (140-360); RED BLOOD COUNT 4.85 x10e6/uL (4.3-5.7); RED CELL DISTRIBUTION WIDTH 14.4 % (11.7-14.4)
[2020-08-09 21:29] LABS: ALANINE AMINOTRANSFERASE 52 IU/L (0-55); ALBUMIN/GLOBULIN RATIO 0.6 (0.8-2.0); ALKALINE PHOSPHATASE 446 IU/L (40-150); ANION GAP 14.1 mmol/L (8-16); BLOOD UREA NITROGEN 9 mg/dL (7-26); BUN/CREATININE RATIO 12 (6-25); CALCIUM 8.8 mg/dL (8.4-10.2); CARBON DIOXIDE 23 mmol/L (22-29); CHLORIDE 102 mmol/L (98-107); CREATININE, SERUM 0.73 mg/dL (0.72-1.25); EST GLOMERULAR FILTRATION RATE > 60 ML/MIN (60-); GLUCOSE 111 mg/dL (74-118); POTASSIUM 4.1 mmol/L (3.5-5.1); SODIUM 135 mmol/L (136-145)
[2020-08-09 21:30] LABS: AMYLASE 57 U/L (25-125); LIPASE 47 U/L (8-78)
[2020-08-09] MEDS ORDERED: IOPAMIDOL 370 MG/ML 200 ML INFUS..BTL INJ ONE (22:27)
[2020-08-09] MEDS ORDERED: SODIUM CHLORIDE 0.9% 50ML 50 ML ONE (22:27)
--- NOTE | 2020-08-09 23:10 | Diagnostic Imaging Report ---
EXAM: CT Abdomen and Pelvis WITH contrast INDICATION: Right-sided abdominal pain COMPARISON: Abdominal CT 07/02/2020. TECHNIQUE: Abdomen and pelvis were scanned utilizing a multidetector helical scanner from the lung base to the pubic symphysis after administration of IV contrast. Coronal and sagittal reformations were obtained. Routine protocol was performed. Scan was performed when during portal venous phase. IV CONTRAST: 100 mL of Isovue 370 ORAL CONTRAST: None COMPLICATIONS: None RADIATION DOSE: Total DLP: 607 mGy*cm Estimated effective dose: (DLP x 0.015 x size factor) mSv CTDIvol has been reviewed. It is below the limits set by the Radiation Protocol Committee (RPC). Dose modulation, iterative reconstruction, and/or weight based adjustment of the mA/kV was utilized to reduce the radiation dose to as low as reasonably achievable. FINDINGS: LINES and TUBES: None. LOWER THORAX: Mild left atrial dilation. Moderate left pleural effusion. HEPATOBILIARY: Mild surface contour nodularity and widened intrahepatic fissures. No focal hepatic lesions. There is intra- and extra- hepatic biliary dilation likely post cholecystectomy reservoir effect. GALLBLADDER: Removed. SPLEEN: Mild splenomegaly. PANCREAS: No focal masses or ductal dilatation. ADRENALS: No adrenal nodules KIDNEYS/URETERS: Kidneys enhance symmetrically. No hydronephrosis. No cystic or solid mass lesions. No stones. GI TRACT: Mild wall thickening of the small and large bowel. No evidence of bowel obstruction. Surgical changes of appendectomy. PELVIC ORGANS/BLADDER: Unremarkable. LYMPH NODES: No lymphadenopathy. VESSELS: Gastroesophageal and anorectal varices.. Atherosclerotic calcifications. PERITONEUM / RETROPERITONEUM: Mesenteric fat stranding. Trace ascites. No free air. BONES: There are degenerative changes in the spine. 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 Moderate left pleural effusion. Mild cardiomegaly. Signed by: Dougie Mckeon DO on 08/09/2020 11:06 PM
[2020-08-10 00:08] VITALS: BP 156/92
== END 2020-08-10 00:19 | disposition home or self-care (01) ==
LOC: ER 19:06
DX: R10.31 Right lower quadrant pain (principal); G89.29 Other chronic pain; I10 Essential (primary) hypertension; I48.91 Unspecified atrial fibrillation; F17.210 Nicotine dependence, cigarettes, uncomplicated
CPT/HCPCS: 36415; 74177; 80053; 80307; 81001; 82150; 83690; 85025; 99284; J1885; Q9967

== ENCOUNTER 2020-08-25 06:36 | Emergency (ER) | payer SELFPAY ==
[~2020-08-25] VITALS: Ht 182.9 cm; Wt 96.6 kg
[2020-08-25] MEDS ORDERED: SODIUM CHLORIDE 0.9% 1000ML 1,000 ML IV STA (06:39)
[2020-08-25] MEDS ORDERED: ONDANSETRON HCL INJ 2MG/ML 2ML 2 MG/ML VIAL IV STA (06:39)
[2020-08-25] MEDS ORDERED: MORPHINE SULFATE INJ 4 MG/ML INJ 1ML IV STA ×2 (06:39→07:37)
--- NOTE | 2020-08-25 06:42 | Emergency Department Note ---
History of Present Illnes History of Present Illness History of Present Illness This is a 59 [facility] hour h/o of abd pain with nausea. S/P hernia repair [address] Scott Martinez. 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 Any updates have been documented here. Past Medical History Recent Fever: No Clinical Suspicion of Infectio: No New/Unexplained Change in Ment: No Past Medical History: Hypertension, A-Fib, Chronic Back Pain Other Medical History: LIVER CIRRHOSIS LEFT KNEE PAIN ETOH ABUSE OPIOID PAIN SYNDROME Past Surgical History: Cholecysctectomy, Appendectomy, Hernia Repair Other Surgery: INCARCERATED HERNIA REPAIR Social History Smoking Cessation: Current every day smoker Counseling Performed: Yes Alcohol Use: Occasional Any Illegal Drug Use: No Other Last Tetanus: UNK Review of Systems Review of Systems Constitutional: Reports no symptoms EENTM: Reports no symptoms Cardiovascular: Reports no symptoms Respiratory: Reports no symptoms Gastrointestinal: Reports abdominal pain, Reports nausea Genitourinary: Reports no symptoms Musculoskeletal: Reports no symptoms Integumentary: Reports no symptoms Neurological: Reports no symptoms Psychological: Reports no symptoms Endocrine: Reports no symptoms Hematological/Lymphatic: Reports no symptoms Physical Exam Related Data Allergies: Coded Allergies: No Known Allergies (Unverified , 02/09/17) Vital signs reviewed: Yes Physical Exam CONSTITUTIONAL Constitutional: Present obese, Present ill appearing HENT HENT: Present normocephalic, Present atraumatic, Present oropharynx clear/moist, Present nose normal HENT L/R: Present left ext ear normal, Present right ext ear normal EYES Eyes: Reports PERRL, Reports conjunctivae normal NECK Neck: Present ROM normal PULMONARY Pulmonary: Present effort normal, Present breath sounds normal CARDIOVASCULAR Cardiovascular: Present regular rhythm, Present bradycardia GASTROINTESTINAL Abdominal: Present soft, Present distension, Present tender GENITOURINARY Genitourinary: Present exam deferred SKIN Skin: Present warm, Present dry MUSCULOSKELETAL Musculoskeletal: Present ROM normal NEUROLOGICAL Neurological: Present alert, Present oriented x 3, Present no gross motor or sensory deficits PSYCHOLOGICAL Psychological: Present mood/affect normal, Present judgement normal Results Laboratory Lab results reviewed: Yes Laboratory comments Laboratory Tests Test 08/25/20 08:56 08/25/20 06:50 Urine Color Yellow (YELLOW) Urine Clarity Hazy (CLEAR) Urine pH 5 (5 - 7) Urine Specific Erin >=1.030 (1.010-1.025) Urine Protein Trace (NEGATIVE) Urine Glucose (UA) Negative (NEGATIVE) Urine Ketones Negative (NEGATIVE) Urine Blood Large (NEGATIVE) Urine Nitrite Negative (NEGATIVE) Urine Bilirubin Small (NEGATIVE) Urine Urobilinogen 0.2 mg/dL (0.2 - 1) Urine Leukocyte Esterase Negative (NEGATIVE) Urine RBC >50 /HPF (0-5) Urine WBC 0-5 /HPF (0-5) Urine Epithelial Cells Rare /LPF (NONE) Urine Calcium Oxalate Crystals Moderate (FEW) Urine Bacteria Few /HPF (NONE) White Blood Count 6.44 x10e3/uL (4.8-10.8) Red Blood Count 4.64 x10e6/uL (4.3-5.7) Hemoglobin 14.3 g/dL (14.0-18.0) Hematocrit 42.5 % (38.2-49.6) Mean Corpuscular Volume 91.6 fL (81-99) Mean Corpuscular Hemoglobin 30.8 pg (28-32) Mean Corpuscular Hemoglobin Concent 33.6 g/dL (31-35) Red Cell Distribution Width 14.3 % (11.7-14.4) Platelet Count 92 x10e3/uL (140-360) Neutrophils (%) (Auto) 67.3 % (38.7-80.0) Lymphocytes (%) (Auto) 15.5 % (18.0-39.1) Monocytes (%) (Auto) 11.0 % (4.4-11.3) Eosinophils (%) (Auto) 4.8 % (0.0-6.0) Basophils (%) (Auto) 0.8 % (0.0-1.0) Neutrophils # (Auto) 4.3 (2.1-6.9) Lymphocytes # (Auto) 1.0 (1.0-3.2) Monocytes # (Auto) 0.7 (0.2-0.8) Eosinophils # (Auto) 0.3 (0.0-0.4) Basophils # (Auto) 0.1 (0.0-0.1) Absolute Immature Granulocyte (auto 0.04 x10e3/uL (0-0.1) Sodium Level 139 mmol/L (136-145) Potassium Level 4.3 mmol/L (3.5-5.1) Chloride Level 109 mmol/L (98-107) Carbon Dioxide Level 23 mmol/L (22-29) Anion Gap 11.3 mmol/L (8-16) Blood Urea Nitrogen 10 mg/dL (7-26) Creatinine 0.91 mg/dL (0.72-1.25) Estimat Glomerular Filtration Rate > 60 ML/MIN (60-) BUN/Creatinine Ratio 11 (6-25) Glucose Level 125 mg/dL (74-118) Calcium Level 8.4 mg/dL (8.4-10.2) Total Bilirubin 1.4 mg/dL (0.2-1.2) Aspartate Amino Transf (AST/SGOT) 66 IU/L (5-34) Alanine Aminotransferase (ALT/SGPT) 42 IU/L (0-55) Alkaline Phosphatase 313 IU/L (40-150) Creatine Kinase 52 IU/L (30-200) Creatine Kinase MB 2.40 ng/mL (0-5.0) Troponin I 0.103 ng/mL (0-0.300) B-Type Natriuretic Peptide 185.4 pg/mL (0-100) Total Protein 7.1 g/dL (6.5-8.1) Albumin 2.5 g/dL (3.5-5.0) Globulin 4.6 g/dL (2.3-3.5) Albumin/Globulin Ratio 0.5 (0.8-2.0) Lipase 66 U/L (8-78) Ethyl Alcohol Level < 10.0 mg/dL (0.0-10.0) Imaging Imaging results reviewed: Yes Impressions [place] [id number] Patient Name: CAROL TRIMBLE MR #: [id number] : 1960 Age/Sex: 59/M [facility] #: [id number] [facility] Physician: Ordered by: BENEDICTO GERARD DO Report #: [id number] Location: ER Room/Bed: Procedure: [id number] CT/CT ABDOMEN/PELVIS W Exam Date: 08/25/20 Exam Time: 0800 REPORT STATUS: Signed CT of the abdomen and pelvis, with contrast, 08/25/2020. History: Right flank/abdominal pain. Comparison: 08/09/2020. Technique: Multidetector CT scanning of the abdomen and pelvis was performed from the level of the lung bases to the inferior pubic rami after intravenous administration of contrast. No oral contrast was given. Coronal and sagittal multiplanar reformations were obtained. RADIATION DOSE: Total DLP: 810 mGy*cm Dose modulation, iterative reconstruction, and/or weight based adjustment of the mA/kV was utilized to reduce the radiation dose to as low as reasonably achievable. Discussion: LUNG BASES: There is bibasilar atelectasis. ABDOMEN: Cholecystectomy clips are present. There is mild intra and extrahepatic biliary ductal dilatation without evidence of choledocholithiasis. There is slight nodularity of the liver surface contour. Spleen is enlarged measuring 20 cm in length. The main portal vein is dilated measuring 18 mm in diameter. Gastroesophageal varices are present. There is mild right hydronephrosis and dilatation of the proximal right ureter down to the level of L4-L5 where a 3 mm stone is present. A 2 mm stone is also present in the upper pole of the right kidney. There is right perinephric fat stranding. The pancreas, adrenal glands, and left kidney are normal. The hepatic vein, portal vein, and splenic vein are patent. The abdominal aorta is within normal limits for size. Evaluation of bowel is limited without oral contrast. There is no bowel dilatation. Mild diffuse small and large bowel wall thickening is again noted. Minimal ascites is present. Surgical clips are noted in the right lower quadrant. PELVIS: The bladder, prostate, and seminal vesicles are normal in appearance. There is minimal free fluid. BONES AND SOFT TISSUES: Degenerative changes are present throughout the lumbar spine without evidence of lytic or sclerotic lesion. IMPRESSION: 1. A 3 mm stone is present in the proximal right ureter causing mild right hydronephrosis. 2. Cirrhotic liver with findings of portal venous hypertension. 3. Status post cholecystectomy. 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 ED physician Date: Aug 25, 2020 Time: 07:09 Prior ECG tracings: reviewed Rhythm: sinus bradycardia Rate: normal BPM: 55 QRS axis: normal ST segments normal: Yes T waves normal: Yes Clinical Impression: normal ECG Assessment & Plan Medical Decision Making MDM Diff Dx : ACS, SBO, perforated viscus, appendicitis, ischemic bowel, pancreatitis, UTI Reassessment Reassessment time: 09:30 Reassessment Patient responding well to clinical therapy Assessment & Plan Final Impression: (1) Kidney stone on right side Depart Disposition: HOME, SELF-CARE Last Vital Signs Date Time Temp Pulse Resp B/P (MAP) Pulse Ox O2 Delivery O2 Flow Rate FiO2 08/25/20 09:33 86 18 99 08/25/20 07:02 168/92 Room Air 08/25/20 06:41 98.2 Home Meds Reported Medications Aspirin (ASPIRIN) 81 Mg Tab.chew, 81 MG PO DAILY 03/19/20 Lisinopril (LISINOPRIL) 10 Mg Tablet, 20 MG PO DAILY, #30 TAB 03/19/20 Metoprolol Tartrate (METOPROLOL TARTRATE) 50 Mg Tablet, 50 MG PO BID, TAB 02/09/17 BENEDICTO GERARD DO Aug 25, 2020 06:42
[2020-08-25 06:59] LABS: BASOPHILS # (AUTO) 0.1 (0.0-0.1); BASOPHILS % 0.8 % (0.0-1.0); EOSINOPHILS # (AUTO) 0.3 (0.0-0.4); EOSINOPHILS % 4.8 % (0.0-6.0); HEMATOCRIT 42.5 % (38.2-49.6); HEMOGLOBIN 14.3 g/dL (14.0-18.0); LYMPHOCYTES % 15.5 % (18.0-39.1); MEAN CORPUSCULAR HEMOGLOBIN 30.8 pg (28-32); MEAN CORPUSCULAR HGB CONC 33.6 g/dL (31-35); MEAN CORPUSCULAR VOLUME 91.6 fL (81-99); MONOCYTES # (AUTO) 0.7 (0.2-0.8); NEUTROPHILS # (AUTO) 4.3 (2.1-6.9); NEUTROPHILS % 67.3 % (38.7-80.0); PLATELET COUNT 92 x10e3/uL (140-360); RED BLOOD COUNT 4.64 x10e6/uL (4.3-5.7); RED CELL DISTRIBUTION WIDTH 14.3 % (11.7-14.4)
[2020-08-25] MEDS ORDERED: PROMETHAZINE HCL (IM) 25 MG/ML VIAL IM ONE (07:15)
[2020-08-25 07:19] LABS: ALANINE AMINOTRANSFERASE 42 IU/L (0-55); ALBUMIN 2.5 g/dL (3.5-5.0); ALBUMIN/GLOBULIN RATIO 0.5 (0.8-2.0); ALKALINE PHOSPHATASE 313 IU/L (40-150); ANION GAP 11.3 mmol/L (8-16); BLOOD UREA NITROGEN 10 mg/dL (7-26); BUN/CREATININE RATIO 11 (6-25); CALCIUM 8.4 mg/dL (8.4-10.2); CARBON DIOXIDE 23 mmol/L (22-29); CHLORIDE 109 mmol/L (98-107); CREATINE KINASE 52 IU/L (30-200); CREATININE, SERUM 0.91 mg/dL (0.72-1.25); EST GLOMERULAR FILTRATION RATE > 60 ML/MIN (60-); GLUCOSE 125 mg/dL (74-118); LIPASE 66 U/L (8-78); POTASSIUM 4.3 mmol/L (3.5-5.1); SODIUM 139 mmol/L (136-145)
--- OUTSIDE RECORDS SUMMARY | 2020-08-25 07:23 | XMS REPORT | Continuity of Care Document ---
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 Name Role Phone MD SHAY BARAJAS PCP Judy CAMPOVERDE Attphys Unavailable SHAY BARAJAS Attphys Unavailable KATERINA GERARD Attphys Unavailable SHAY BARAJAS Admphys Unavailable Payers Payer Name Policy Type Policy Number Effective Date Expiration Date S madhav Covid19 Hrsa Uninsured NA [facility] Problems Condition Name Condition Details Condition Category Status Onset Date Resolution Date Last Treatment Date Treating Clinician Comments Source Chest pain Problem Active [facility] Drug abuse Problem Active [facility] High bilirubin Problem Active [facility] Cellulitis of left foot Problem Active [facility] Hypertension Problem Active [facility] Irreducible right femoral hernia Problem Active [facility] Facial droop Problem Active [facility] Transient ischemic attack Problem Active [facility] Confusion Problem Active [facility] Chronic pain Problem Active [facility] Allergies, Adverse Reactions, Alerts Allergy Name Allergy Type Status Severity Reaction(s) Onset Date Inacti ve Date Treating Clinician Comments Source No Known Allergies DA Active U 2015-04-18 00:00:00 [facility] Social History Social Habit Start Date Stop Date Quantity Comments Source Sex Assigned At 1960 00:00:00 1960 00:00:00 Male [facility] Medications Ordered Medication Name Filled Medication Name Start Date Stop Da te Current Medication? Ordering Clinician Indication Dosage Frequency Signature (SIG) Comments Components Source Lisinopril Lisinopril 2017-02-10 13:50:00 2020-03-19 00:00:00 No 10 Daily [facility] Aspirin Aspirin Yes 81 Daily [facility] Lisinopril Lisinopril Yes 20 Daily [facility] Metoprolol Tartrate Metoprolol Tartrate Yes 50 Twice A Day [facility] Carisoprodol (Soma) 350 Mg TABLET Carisoprodol (Soma) 350 Mg TAB LET 2020-07-03 00:00:00 No 350 Three Times A Day as needed for Pain [facility] Ciprofloxacin Hcl (Cipro) 500 Mg TABLET Ciprofloxacin Hcl (C ipro) 500 Mg TABLET 2020-07-03 00:00:00 No 500 Twice A Day [facility] Ciprofloxacin Hcl (Cipro) 500 Mg TABLET Ciprofloxacin Hcl (C ipro) 500 Mg TABLET 2020-07-03 00:00:00 No 500 Twice A Day [facility] Doxycycline Hyclate Doxycycline Hyclate 2020-07-03 00:00:00 No 100 Twice A Day [facility] Doxycycline Hyclate Doxycycline Hyclate 2020-07-03 00:00:00 No 100 Twice A Day [facility] Ibuprofen Ibuprofen 2020-07-03 00:00:00 No 800 Every 4 Hours as needed for Pain [facility] Acetaminophen/Hydrocodone Bitart ([place] 10MG-325MG*) 1 Ea TAB Acetaminophen/Hydrocodone Bitart ([place] 10MG-325MG*) 1 Ea TAB 2020-03-19 00:00:00 No 10 Four Times Daily as needed for Pain [facility] Lisinopril Lisinopril 2017-02-10 00:00:00 No 20 Lizett ly [facility] Metoprolol Succinate Metoprolol Succinate 2017-02-09 00:00:00 No Twice A Day [facility] Vital Signs Vital Name Observation Time Observation Value Comments Source Body Temperature 2020-08-10 00:08:00 98.5 [degF] [facility] Weight 2020-08-09 18:43:00 213 [lb_av] [facility] BMI (Body Mass Index) 2020-08-09 18:43:00 28.9 kg/m2 [facility] Body Temperature 2020-07-14 12:00:00 97.9 [degF] [facility] BMI (Body Mass Index) 2020-07-12 08:30:00 28.9 kg/m2 [facility] Weight 2020-07-12 04:24:00 213 [lb_av] [facility] Body Temperature 2020-07-05 12:35:00 98.4 [degF] [facility] BMI (Body Mass Index) 2020-07-04 09:20:00 28.9 kg/m2 [facility] Weight 2020-07-03 01:43:00 213 [lb_av] [facility] Body Temperature 2020-03-22 15:46:00 96.7 [degF] [facility] Weight 2020-03-20 09:35:00 230 [lb_av] [facility] BMI (Body Mass Index) 2020-03-20 09:35:00 31.2 kg/m2 [facility] Procedures Procedure Date / Time Performed Performing Clinician [facility] e Computed tomography of abdomen and pelvis with contrast 00:00:00 [facility] Computed tomography of brain without radiopaque contrast 2020-06 00:00:00 [facility] Computed tomography of cervical spine without contrast 2020-06-14 00:00:00 [facility] REPAIR RIGHT FEMORAL REGION, OPEN APPROACH 2020-07-03 00:00:00 [facility] TRANSFUSE NONAUT PLATELETS IN PERIPH VEIN, PERC 2020-07-03 00:00 :00 [facility] Computed tomography of abdomen and pelvis with contrast 00:00:00 [facility] Computed tomography of brain without radiopaque contrast 2020-06 00:00:00 [facility] US Liver 2020-03-20 00:00:00 [facility] Plan of Care Planned Activity Planned Date Details Comments Source Instructions Abdominal Pain - Adult [facility] Encounters Start Date/Time End Date/Time Encounter Type Admission Type Attendi [facility] Care Department Encounter ID Source 2020-08-09 19:06:00 2020-08-10 00:19:00 Departed Emergency Room 1 DAVONTE CAMPOVERDE [facility] [id number] [facility] 2020-07-12 06:58:00 2020-07-14 13:22:00 Discharged Inpatient (obs) 1 [facility] [id number] [facility] 2020-07-02 21:36:00 2020-07-05 15:10:00 Discharged Inpatient 1 KATERINA GERARD [facility] [id number] [facility] 2020-03-19 18:14:00 2020-03-22 18:30:00 Discharged Inpatient 1 [facility] [id number] [facility] Results Test Description Test Time Test Comments Results Result Comments Source CT ABDOMEN/PELVIS W 2020-08-09 22:57:00 [place] [address] Patient Name: CAROL TRIMBLE MR #: [id number] : 1960 Age/Sex: 59/M Req #: [id number] Adm Physician: Ordered by: DAVONTE CAMPOVERDE MD Report #: [id number] Location: ER Room/Bed: Procedure: [id number] CT/CT ABDOMEN/PELVIS W Exam Date: 08/09/20 Exam Time: 2213 REPORT STATUS: Signed EXAM: CT Abdomen and Pelvis WITH contrast INDICATION: Right-sided abdominal pain COMPARISON: Abdominal CT 07/02/2020. TECHNIQUE: Abdomen and pelvis were scanned utilizing a multidetector helical scanner from the lung base to the pubic symphysis after administration of IV contrast. Coronal and sagittal reformations were obtained. Routine protocol was performed. Scan was performed when during portal venous phase. IV CONTRAST: 100 mL of Isovue 370 ORAL CONTRAST: None COMPLICATIONS: None RADIATION DOSE: Total DLP: 607 mGy*cm Estimated effective dose: (DLP x 0.015 x size factor) mSv CTDIvol has been reviewed. It is below the limits set by the Radiation Protocol Committee (RPC). Dose modulation, iterative reconstruction, and/or weight based adjustment of the mA/kV was utilized to reduce the radiation dose to as low as reasonably achievable. FINDINGS: LINES and TUBES: None. LOWER THORAX: Mild left atrial dilation. Moderate left pleural effusion. HEPATOBILIARY: Mild surface contour nodularity and widened intrahepatic fissures. No focal hepatic lesions. There is intra- and extra- hepatic biliary dilation likely post cholecystectomy res ervoir effect. GALLBLADDER: Removed. SPLEEN: Mild splenomegaly. PANCREAS: No focal masses or ductal dilatation. ADRENALS: No adrenal nodules KIDNEYS/URETERS: Kidneys enhance symmetrically. No hydronephrosis. No cystic or solid mass lesions. No stones. GI TRACT: Mild wall thickening of the small and large bowel. No evidence of bowel obstruction. Surgical changes of appendectomy. PELVIC ORGANS/BLADDER: Unremarkable. LYMPH NODES: No lymphadenopathy. VESSELS: Gastroesophageal and anorectal varices.. Atherosclerotic calcifications. PERITONEUM / RETROPERITONEUM: Mesenteric fat stranding. Trace ascites. No free air. BONES: There are degenerative changes in the spine. 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 Moderate left pleural effusion. Mild cardiomegaly. Signed by: Dougie Bradford DO on 08/09/2020 11:06 PM Dictated By: DOUGIE BRADFORD DO 05 Transcribed By: JOSE on 08/09/202305 COPY TO: DAVONTE CAMPOVERDE MD Blood leukocytes automated count (number/volume) 2020-08-09 21:00:00 Test Item White Blood Count (test code = 6690-2) 9.96 4.8-10.8 [facility] erythrocytes automated count (number/volume)2020-08-09 21:00:00* Test Item Value Reference Range Interpretation Comments Red Blood Count (test code = 789-8) 4.85 4.3-5.7 [facility] Dallas[facility] hemoglobin measurement (moles/volume)2020-08-09 21:00:00* Test Item Value Reference Range Interpretation Comments Hemoglobin (test code = 82065-2) 14.8 14.0-18.0 [facility] DallasAutomated blood hematocrit (volume fraction)2020-08-09 21:00:00* Test Item Value Reference Range Interpretation Comments Hematocrit (test code = 4544-3) 43.9 38.2-49.6 [facility] DallasAutomated erythrocyte mean corpuscular [id number] 21:00:00* Test Item Value Reference Range Interpretation Comments Mean Corpuscular Volume (test code = 787-2) 90.5 81-99 [facility] DallasAutomated erythrocyte mean corpuscular hemoglobin (mass per erythrocyte)2020-08-09 21:00:00* Test Item Value Reference Range Interpretation Comments Mean Corpuscular Hemoglobin (test code = 785-6) 30.5 28-32 [facility] DallasAutomated erythrocyte mean corpuscular hemoglobin concentration measurement (mass/volume)2020-08-09 21:00:00* Test Item Value Reference Range Interpretation Comments Mean Corpuscular Hemoglobin Concent (test code = 786-4) 33.7 31-35 [facility] DallasRDW [id number] 21:00:00* Test Item Value Reference Range Interpretation Comments Red Cell Distribution Width (test code = 21618-4) 14.4 11.7 -14.4 [facility] DallasAutomated blood platelet count (count/volume)2020-08-09 21:00:00* Test Item Value Reference Range Interpretation Comments Platelet Count (test code = 777-3) 164 140-360 [facility] DallasAutomated blood segmented neutrophil count as percentage of total [id number] 21:00:00* Test Item Value Reference Range Interpretation Comments Neutrophils (%) (Auto) (test code = 66562-0) 73.8 38.7-80.0 [facility] DallasAutomated blood lymphocyte count as percentage ot total [id number] 21:00:00* Test Item Value Reference Range Interpretation Comments Lymphocytes (%) (Auto) (test code = 736-9) 9.8 18.0-39.1 [facility] DallasAutomated blood monocyte count as percentage of total [id number] 21:00:00* Test Item Value Reference Range Interpretation Comments Monocytes (%) (Auto) (test code = 5905-5) 8.1 4.4-11.3 [facility] Dallas[facility]ated blood eosinophil count as percentage of total [id number] 21:00:00* Test Item Value Reference Range Interpretation Comments Eosinophils (%) (Auto) (test code = 713-8) 6.5 0.0-6.0 [facility] DallasAutomated blood basophil count as percentage of total [id number] 21:00:00* Test Item Value Reference Range Interpretation Comments Basophils (%) (Auto) (test code = 706-2) 1.2 0.0-1.0 [facility] DallasFluoroscopic procedure less than one hour [id number] 21:00:00* Test Item Value Reference Range Interpretation Comments IM GRANULOCYTES % (test code = IM GRANULOCYTES %) 0.6 0.0- 1.0 [facility] DallasAutomated blood neutrophil count 2020-08-09 21:00:00* Test Item Value Reference Range Interpretation Comments Neutrophils # (Auto) (test code = 751-8) 7.3 2.1-6.9 [facility] DallasBlood lymphocytes count (number/volume) 2020-08-09 21:00:00* Test Item Value Reference Range Interpretation Comments Lymphocytes # (Auto) (test code = 31531-1) 1.0 1.0-3.2 [facility] monocytes automated count (number/volume)2020-08-09 21:00:00* Test Item Value Reference Range Interpretation Comments Monocytes # (Auto) (test code = 742-7) 0.8 0.2-0.8 [facility] DallasAutomated blood eosinophil count 2020-08-09 21:00:00* Test Item Value Reference Range Interpretation Comments Eosinophils # (Auto) (test code = 711-2) 0.7 0.0-0.4 [facility] DallasAutomated blood basophil count (count/volume)2020-08-09 21:00:00* Test Item Value Reference Range Interpretation Comments Basophils # (Auto) (test code = 704-7) 0.1 0.0-0.1 [facility] DallasFluoroscopic procedure less than one hour [id number] 21:00:00* Test Item Value Reference Range Interpretation Comments Absolute Immature Granulocyte (auto (bradford t code = Absolute Immature Granulocyte (auto) 0.06 0-0.1 [facility] sodium measurement (moles/volume)2020-08-09 21:00:00* Test Item Value Reference Range Interpretation Comments Sodium Level (test code = 2951-2) 135 136-145 [facility] potassium measurement (moles/volume)2020-08-09 21:00:00* Test Item Value Reference Range Interpretation Comments Potassium Level (test code = 2823-3) 4.1 3.5-5.1 [facility] chloride measurement (moles/volume)2020-08-09 21:00:00* Test Item Value Reference Range Interpretation Comments Chloride Level (test code = 2075-0) 102 98-107 [facility] carbon dioxide, total measurement (moles/volume)2020-08-09 21:00:00* Test Item Value Reference Range Interpretation Comments Carbon Dioxide Level (test code = 2028-9) 23 22-29 [facility] anion [id number] 21:00:00* Test Item Value Reference Range Interpretation Comments Anion Gap (test code = 93811-8) 14.1 8-16 [facility] urea nitrogen measurement (mass/volume)2020-08-09 21:00:00* Test Item Value Reference Range Interpretation Comments Blood Urea Nitrogen (test code = 3094-0) 9 7-26 [facility] creatinine measurement (mass/volume)2020-08-09 21:00:00* Test Item Value Reference Range Interpretation Comments Creatinine (test code = 2160-0) 0.73 0.72-1.25 [facility] urea nitrogen/creatinine mass [id number] 21:00:00* Test Item Value Reference Range Interpretation Comments BUN/Creatinine Ratio (test code = 3097-3) 12 6-25 [facility] DallasEstimated glomerular filtration rate (GFR) jgsonsmpysdvl0307-17-46 21:00:00* Test Item Value Reference Range Interpretation Comments Estimat Glomerular Filtration Rate (test code = 240672655) > 60 >60 Ranges were taken from the National Kidney Disease Education Program and the [facility] Kidney Foundation literature.Reference ranges:60 or greater: Ntgolv28-67 ( for 3 consecutive months): Chronic kidney disease 15 or less: Kidney failureBaylor Scott & White [facility] and Vascular Hospital – DallasGlucose [id number] 21:00:00* Test Item Value Reference Range Interpretation Comments Glucose Level (test code = FVU6115) 111 74-118 [facility] calcium measurement (mass/volume)2020-08-09 21:00:00* Test Item Value Reference Range Interpretation Comments Calcium Level (test code = 55215-3) 8.8 8.4-10.2 [facility] plasma total bilirubin measurement (mass/volume)2020-08-09 21:00:00* Test Item Value Reference Range Interpretation Comments Total Bilirubin (test code = 1975-2) 3.3 0.2-1.2 [facility] DallasFluoroscopic procedure less than one hour [id number] 21:00:00* Test Item Value Reference Range Interpretation Comments Aspartate Amino Transf (AST/SGOT) (test code = Aspartate Amino Transf (AST/SGOT)) 105 5-34 [facility]ererum or plasma alanine aminotransferase measurement (enzymatic activity/volume)2020-08-09 21:00:00* Test Item Value Reference Range Interpretation Comments Alanine Aminotransferase (ALT/SGPT) (test code = 1742-6) 52 0-55 [facility] plasma protein measurement (mass/volume)2020-08-09 21:00:00* Test Item Value Reference Range Interpretation Comments Total Protein (test code = 2885-2) 8.2 6.5-8.1 [facility]ere[facility] or plasma albumin measurement (mass/volume)2020-08-09 21:00:00* Test Item Value Reference Range Interpretation Comments Albumin (test code = 1751-7) 3.0 3.5-5.0 [facility] DallasPlasma globulin measurement (mass/volume) 2020-08-09 21:00:00* Test Item Value Reference Range Interpretation Comments Globulin (test code = 78265-3) 5.2 2.3-3.5 [facility] or plasma albumin/globulin mass [id number] 21:00:00* Test Item Value Reference Range Interpretation Comments Albumin/Globulin Ratio (test code = 1759-0) 0.6 0.8-2.0 [facility] alkaline phosphatase measurement (enzymatic activity/volume)2020-08-09 21:00:00* Test Item Value Reference Range Interpretation Comments Alkaline Phosphatase (test code = 6768-6) 446 40-150 [facility] plasma amylase measurement (enzymatic activity/volume)2020-08-09 21:00:00* Test Item Value Reference Range Interpretation Comments Amylase Level (test code = 1798-8) 57 25-125 [facility] plasma lipase measurement (enzymatic activity/volume)2020-08-09 21:00:00* Test Item Value Reference Range Interpretation Comments Lipase (test code = 3040-3) 47 8-78 [facility] DallasUrine color yrqnlimmthckz2900-87-22 18:45:00* Test Item Value Reference Range Interpretation Comments Urine Color (test code = 5778-6) ALBINA YELLOW [facility] DallasUrine [id number] 18:45:00* Test Item Value Reference Range Interpretation Comments Urine Clarity (test code = 70059-4) CLEAR CLEAR [facility]pecific gravity of Urine by Test strip 2020-08-09 18:45:00* Test Item Value Reference Range Interpretation Comments Urine Specific Idalou (test code = 5811-5) 1.025 1.010-1.02 5 [facility] DallasUrine pH measurement by automated test [id number] 18:45:00* Test Item Value Reference Range Interpretation Comments Urine pH (test code = 29570-8) 5.5 5-7 [facility] DallasUrine leukocyte esterase detection by twlfnkkv2191-18-25 18:45:00* Test Item Value Reference Range Interpretation Comments Urine Leukocyte Esterase (test code = 5799-2) NEGATIVE NEGATIVE [facility] DallasUrine nitrite [id number] 18:45:00* Test Item Value Reference Range Interpretation Comments Urine Nitrite (test code = 18123-6) NEGATIVE NEGATIVE [facility] DallasUrine protein measurement by test strip (mass/volume)2020-08-09 18:45:00* Test Item Value Reference Range Interpretation Comments Urine Protein (test code = 5804-0) NEGATIVE NEGATIVE [facility] DallasUrine glucose [id number] 18:45:00* Test Item Value Reference Range Interpretation Comments Urine Glucose (UA) (test code = 2349-9) NEGATIVE NEGATIVE [facility] DallasUrine ketones detection by automated test [id number] 18:45:00* Test Item Value Reference Range Interpretation Comments Urine Ketones (test code = 21821-3) NEGATIVE NEGATIVE [facility] DallasUrine opiates screening [id number] 18:45:00* Test Item Value Reference Range Interpretation Comments Urine Opiates Screen (test code = 07911-4) POSITIVE NEGATIVE This test provides only a screen. Positive results should be repeated by a confi rmatory test.[facility] DallasBarbiturates screen, urine 2020-08-09 18:45:00* Test Item Value Reference Range Interpretation Comments Urine Barbiturates Screen (test code = 447556230) NEGATIVE NEGA TIVE [facility] DallasUrine phencyclidine detection by screening fugnag1419-03-22 18:45:00* Test Item Value Reference Range Interpretation Comments Urine Phencyclidine Screen (test code = 63639-1) NEGATIVE NEGAT KELSEA [facility] DallasUrine amphetamines detection by screen method > 1000 ng/lP5483-51-58 18:45:00* Test Item Value Reference Range Interpretation Comments Urine Amphetamines Screen (test code = 01725-4) NEGATIVE NEGATI VE [facility] DallasFluoroscopic procedure less than one hour [id number] 18:45:00* Test Item Value Reference Range Interpretation Comments Urine Methamphetamines Screen (test code = Urine Metha mphetamines Screen) NEGATIVE NEGATIVE [facility] DallasUrine benzodiazepines detection by screening [id number] 18:45:00* Test Item Value Reference Range Interpretation Comments Urine Benzodiazepines Screen (test code = 30448-4) POSITIVE NEG ATIVE This test provides only a screen. Positive results should be repeated by a confi rmatory test.[facility] DallasUrine cocaine measurement (mass/volume)2020-08-09 18:45:00* Test Item Value Reference Range Interpretation Comments Urine Cocaine Screen (test code = 3398-5) NEGATIVE NEGATIVE [facility] DallasUrine cannabinoids detection by screening [id number] 18:45:00* Test Item Value Reference Range Interpretation Comments Urine Cannabinoids Screen (test code = 52918-8) NEGATIVE NEGATI VE THESE RESULTS ARE FOR MEDICAL TREATMENT ONLYTHIS REPORT CONTAINS UNCONFIR MED SCREENING RESULTS*POSITIVE RESULTS WILL BE CONFIRMED BY REFERENCE LAB UPON R EQUEST CUT-OFFDRUG CLASS CONCENTRATION ng/mLAmphetamines 1000Methamphetamines 1000Cocaine 300Opiate 300Phencyc lidine 25Cannabinoid 50Barbiturates 300Benzodiazepine 300Methadone 300[facility] DallasUrine methadone [id number] 18:45:00* Test Item Value Reference Range Interpretation Comments Urine Methadone Screen (test code = 19529-9) NEGATIVE NEGATIVE THESE RESULTS ARE FOR MEDICAL TREATMENT ONLYTHIS REPORT CONTAINS UNCONFIR MED SCREENING RESULTS*POSITIVE RESULTS WILL BE CONFIRMED BY REFERENCE LAB UPON R EQUEST CUT-OFFDRUG CLASS CONCENTRATION ng/mLAmphetamines 1000Methamphetamines 1000Cocaine Metabolite 300Opiate 300Phencyc lidine 25Cannabinoid 50Barbiturates 300Benzodiazepine 300Methadone 300[facility] DallasUrine urobilinogen measurement by test strip (mass/volume)2020-08-09 18:45:00* Test Item Value Reference Range Interpretation Comments Urine Urobilinogen (test code = 93121-5) 0.2 0.2-1 [facility] DallasUrine total bilirubin measurement (mass/volume)2020-08-09 18:45:00* Test Item Value Reference Range Interpretation Comments Urine Bilirubin (test code = 1978-6) MODERATE NEGATIVE [facility] DallasUrine erythrocytes ukwwdzenr2427-70-48 18:45:00* Test Item Value Reference Range Interpretation Comments Urine Blood (test code = 67146-2) NEGATIVE NEGATIVE [facility] DallasAutomated urine sediment leukocyte count by microscopy (number/high power field)2020-08-09 18:45:00* Test Item Value Reference Range Interpretation Comments Urine WBC (test code = 5821-4) 6-10 0-5 [facility] DallasErythrocytes detection in urine sediment by light vxdsyjlrwb9284-65-75 18:45:00* Test Item Value Reference Range Interpretation Comments Urine RBC (test code = 98071-6) 0-5 0-5 [facility] DallasBacteria detection in urine sediment by light iesdtfrjvr6139-76-14 18:45:00* Test Item Value Reference Range Interpretation Comments Urine Bacteria (test code = 72725-2) MODERATE NONE [facility] DallasEpithelial cells detection in urine sediment by light xsvespezjl7370-75-12 18:45:00* Test Item Value Reference Range Interpretation Comments Urine Epithelial Cells (test code = 60138-3) FEW NONE [facility] DallasHyaline casts detection in urine sediment by light pjqbnsnfhg3492-54-08 18:45:00* Test Item Value Reference Range Interpretation Comments Urine Hyaline Casts (test code = 96639-0) 2-5 0-1 [facility] DallasMucus detection in urine sediment by light jxlkccscyk5732-42-74 18:45:00* Test Item Value Reference Range Interpretation Comments Urine Mucus (test code = 8247-9) MANY RARE [facility] DallasBlood leukocytes automated count (number/volume)2020-07-13 04:46:00* Test Item Value Reference Range Interpretation Comments White Blood Count (test code = 6690-2) 5.07 4.8-10.8 [facility] DallasBlood erythrocytes automated count (number/volume)2020-07-13 04:46:00* Test Item Value Reference Range Interpretation Comments Red Blood Count (test code = 789-8) 4.15 4.3-5.7 [facility] DallasBlood hemoglobin measurement (moles/volume)2020-07-13 04:46:00* Test Item Value Reference Range Interpretation Comments Hemoglobin (test code = 27689-9) 12.8 14.0-18.0 [facility] DallasAutomated blood hematocrit (volume fraction)2020-07-13 04:46:00* Test Item Value Reference Range Interpretation Comments Hematocrit (test code = 4544-3) 38.1 38.2-49.6 [facility] DallasAutomated erythrocyte mean corpuscular eymuxq6807-59-67 04:46:00* Test Item Value Reference Range Interpretation Comments Mean Corpuscular Volume (test code = 787-2) 91.8 81-99 [facility] DallasAutomated erythrocyte mean corpuscular hemoglobin (mass per erythrocyte)2020-07-13 04:46:00* Test Item Value Reference Range Interpretation Comments Mean Corpuscular Hemoglobin (test code = 785-6) 30.8 28-32 [facility] DallasAutomated erythrocyte mean corpuscular hemoglobin concentration measurement (mass/volume)2020-07-13 04:46:00* Test Item Value Reference Range Interpretation Comments Mean Corpuscular Hemoglobin Concent (test code = 786-4) 33.6 31-35 [facility] DallasRDW EkdWq-Lgc0685-10-01 04:46:00* Test Item Value Reference Range Interpretation Comments Red Cell Distribution Width (test code = 75029-2) 15.2 11.7 -14.4 [facility] DallasAutomated blood platelet count (count/volume)2020-07-13 04:46:00* Test Item Value Reference Range Interpretation Comments Platelet Count (test code = 777-3) 116 140-360 [facility] DallasAutomated blood segmented neutrophil count as percentage of total zzgmcjsrsj3110-30-88 04:46:00* Test Item Value Reference Range Interpretation Comments Neutrophils (%) (Auto) (test code = 98615-4) 60.9 38.7-80.0 [facility] DallasAutomated blood lymphocyte count as percentage ot total pqqyanaluq7105-85-75 04:46:00* Test Item Value Reference Range Interpretation Comments Lymphocytes (%) (Auto) (test code = 736-9) 22.9 18.0-39.1 [facility] DallasAutomated blood monocyte count as percentage of total ggcbkjghpz8503-57-87 04:46:00* Test Item Value Reference Range Interpretation Comments Monocytes (%) (Auto) (test code = 5905-5) 10.3 4.4-11.3 [facility] DallasAutomated blood eosinophil count as percentage of total uxlvofcqwy8186-29-22 04:46:00* Test Item Value Reference Range Interpretation Comments Eosinophils (%) (Auto) (test code = 713-8) 3.9 0.0-6.0 [facility] DallasAutomated blood basophil count as percentage of total ryeiffegzt1028-08-44 04:46:00* Test Item Value Reference Range Interpretation Comments Basophils (%) (Auto) (test code = 706-2) 1.4 0.0-1.0 [facility] DallasFluoroscopic procedure less than one hour oyvsznjf1420-56-99 04:46:00* Test Item Value Reference Range Interpretation Comments IM GRANULOCYTES % (test code = IM GRANULOCYTES %) 0.6 0.0- 1.0 [facility] DallasAutomated blood neutrophil count 2020-07-13 04:46:00* Test Item Value Reference Range Interpretation Comments Neutrophils # (Auto) (test code = 751-8) 3.1 2.1-6.9 [facility] DallasBlood lymphocytes count (number/volume) 2020-07-13 04:46:00* Test Item Value Reference Range Interpretation Comments Lymphocytes # (Auto) (test code = 32089-9) 1.2 1.0-3.2 [facility] DallasBlood monocytes automated count (number/volume)2020-07-13 04:46:00* Test Item Value Reference Range Interpretation Comments Monocytes # (Auto) (test code = 742-7) 0.5 0.2-0.8 [facility] DallasAutomated blood eosinophil count 2020-07-13 04:46:00* Test Item Value Reference Range Interpretation Comments Eosinophils # (Auto) (test code = 711-2) 0.2 0.0-0.4 [facility] DallasAutomated blood basophil count (count/volume)2020-07-13 04:46:00* Test Item Value Reference Range Interpretation Comments Basophils # (Auto) (test code = 704-7) 0.1 0.0-0.1 [facility] DallasFluoroscopic procedure less than one hour bzrvdnvl3046-05-06 04:46:00* Test Item Value Reference Range Interpretation Comments Absolute Immature Granulocyte (auto (bradford t code = Absolute Immature Granulocyte (auto) 0.03 0-0.1 [facility] sodium measurement (moles/volume)2020-07-13 04:46:00* Test Item Value Reference Range Interpretation Comments Sodium Level (test code = 2951-2) 137 136-145 [facility]ere[facility] potassium measurement (moles/volume)2020-07-13 04:46:00* Test Item Value Reference Range Interpretation Comments Potassium Level (test code = 2823-3) 4.0 3.5-5.1 [facility] chloride measurement (moles/volume)2020-07-13 04:46:00* Test Item Value Reference Range Interpretation Comments Chloride Level (test code = 2075-0) 107 98-107 [facility]ererum [facility] plasma carbon dioxide, total measurement (moles/volume)2020-07-13 04:46:00* Test Item Value Reference Range Interpretation Comments Carbon Dioxide Level (test code = 2028-9) 22 22-29 [facility]ererum [facility] anion tis2538-62-39 04:46:00* Test Item Value Reference Range Interpretation Comments Anion Gap (test code = 95840-8) 12.0 8-16 [facility]ere[facility] urea nitrogen measurement (mass/volume)2020-07-13 04:46:00* Test Item Value Reference Range Interpretation Comments Blood Urea Nitrogen (test code = 3094-0) 10 7-26 [facility]ererum [facility] plasma creatinine measurement (mass/volume)2020-07-13 04:46:00* Test Item Value Reference Range Interpretation Comments Creatinine (test code = 2160-0) 0.62 0.72-1.25 [facility]ererum [facility] plasma urea nitrogen/creatinine mass rkgdv7588-73-92 04:46:00* Test Item Value Reference Range Interpretation Comments BUN/Creatinine Ratio (test code = 3097-3) 16 6-25 [facility] DallasEstimated glomerular filtration rate (GFR) aookgrywtcuhu9652-26-36 04:46:00* Test Item Value Reference Range Interpretation Comments Estimat Glomerular Filtration Rate (test code = 965619237) > 60 >60 Ranges were taken from the National Kidney Disease Education Program and the [facility] Foundation literature.Reference ranges:60 or greater: Tjhcwb60-31 ( for 3 consecutive months): Chronic kidney disease 15 or less: Kidney failureBaylor Scott & White Heart and Vascular Hospital – DallasGlucose mpwuuzrmnum4186-43-76 04:46:00* Test Item Value Reference Range Interpretation Comments Glucose Level (test code = XXD1094) 86 74-118 [facility]ere[facility] plasma calcium measurement (mass/volume)2020-07-13 04:46:00* Test Item Value Reference Range Interpretation Comments Calcium Level (test code = 30622-4) 8.1 8.4-10.2 [facility]ererum [facility] plasma total bilirubin measurement (mass/volume)2020-07-13 04:46:00* Test Item Value Reference Range Interpretation Comments Total Bilirubin (test code = 1975-2) 2.1 0.2-1.2 [facility] DallasFluoroscopic procedure less than one hour awraxrmc1443-08-06 04:46:00* Test Item Value Reference Range Interpretation Comments Aspartate Amino Transf (AST/SGOT) (test code = Aspartate Amino Transf (AST/SGOT)) 85 5-34 [facility]ererum or plasma alanine aminotransferase measurement (enzymatic activity/volume)2020-07-13 04:46:00* Test Item Value Reference Range Interpretation Comments Alanine Aminotransferase (ALT/SGPT) (test code = 1742-6) 37 0-55 [facility]ererum [facility] plasma protein measurement (mass/volume)2020-07-13 04:46:00* Test Item Value Reference Range Interpretation Comments Total Protein (test code = 2885-2) 6.6 6.5-8.1 [facility]ererum or plasma albumin measurement (mass/volume)2020-07-13 04:46:00* Test Item Value Reference Range Interpretation Comments Albumin (test code = 1751-7) 2.4 3.5-5.0 [facility] DallasPlasma globulin measurement (mass/volume) 2020-07-13 04:46:00* Test Item Value Reference Range Interpretation Comments Globulin (test code = 18932-4) 4.2 2.3-3.5 [facility]ererum [facility] plasma albumin/globulin mass wizln3433-38-60 04:46:00* Test Item Value Reference Range Interpretation Comments Albumin/Globulin Ratio (test code = 1759-0) 0.6 0.8-2.0 [facility]ererum [facility] plasma alkaline phosphatase measurement (enzymatic activity/volume)2020-07-13 04:46:00* Test Item Value Reference Range Interpretation Comments Alkaline Phosphatase (test code = 6768-6) 441 40-150 [facility] DallasBlood cobalamin (vitamin B12) measurement (mass/volume)2020-07-12 12:37:00* Test Item Value Reference Range Interpretation Comments Vitamin B12 Level (test code = 27830-7) 778 213816 [facility]ererum [facility] plasma myoglobin measurement (mass/volume)2020-07-12 12:37:00* Test Item Value Reference Range Interpretation Comments Myoglobin (test code = 2639-3) Performed at: [employer] [id number] Director: Rashawn Flores MD, Phone: [phone] Scott & [facility] and [facility]ascular [facility] – DallasBlood cobalamin (vitamin B12) measurement (mass/volume)2020-07-12 12:37:00 * Test Item Value Reference Range Interpretation Comments Vitamin B12 Level (test code = 86400-0) 778 213816 [facility]ererum [facility] plasma myoglobin measurement (mass/volume)2020-07-12 12:37:00* Test Item Value Reference Range Interpretation Comments Myoglobin (test code = 2639-3) Performed at: [facility] [address] [id number] Director: Rsahawn Flores MD, Phone: [phone] Scott & White Heart and [facility]ascular Hospital – DallasUrine color mjhoveivjsbmt5010-33-82 08:08:00* Test Item Value Reference Range Interpretation Comments Urine Color (test code = 5778-6) ORANGE YELLOW [facility] DallasUrine uptqzhp4415-94-22 08:08:00* Test Item Value Reference Range Interpretation Comments Urine Clarity (test code = 82180-8) SL CLOUDY CLEAR [facility] Centerpecific gravity of Urine by Test strip 2020-07-12 08:08:00* Test Item Value Reference Range Interpretation Comments Urine Specific Idalou (test code = 5811-5) 1.025 1.010-1.02 5 [facility] DallasUrine pH measurement by automated test lcupw6667-61-36 08:08:00* Test Item Value Reference Range Interpretation Comments Urine pH (test code = 39848-6) 6.5 5-7 [facility] DallasUrine leukocyte esterase detection by zuniplvm9149-20-38 08:08:00* Test Item Value Reference Range Interpretation Comments Urine Leukocyte Esterase (test code = 5799-2) NEGATIVE NEGATIVE [facility] DallasUrine nitrite gxfnmzrsd0987-83-38 08:08:00* Test Item Value Reference Range Interpretation Comments Urine Nitrite (test code = 01810-6) NEGATIVE NEGATIVE [facility] DallasUrine protein measurement by test strip (mass/volume)2020-07-12 08:08:00* Test Item Value Reference Range Interpretation Comments Urine Protein (test code = 5804-0) NEGATIVE NEGATIVE [facility] DallasUrine glucose hhquuymln1051-44-61 08:08:00* Test Item Value Reference Range Interpretation Comments Urine Glucose (UA) (test code = 2349-9) NEGATIVE NEGATIVE [facility] DallasUrine ketones detection by automated test fsxwx2653-99-63 08:08:00* Test Item Value Reference Range Interpretation Comments Urine Ketones (test code = 25943-9) NEGATIVE NEGATIVE [facility] DallasUrine opiates screening iibf1957-62-06 08:08:00* Test Item Value Reference Range Interpretation Comments Urine Opiates Screen (test code = 63847-3) POSITIVE NEGATIVE ALL TESTS PERFORMED MANUALLY ON [employer] TOX/SEE TEST This test provides only a sc reen. Positive results should be repeated by a confirmatory test.[facility] DallasBarbiturates screen, cnphc6996-81-21 08:08:00* Test Item Value Reference Range Interpretation Comments Urine Barbiturates Screen (test code = 434257332) NEGATIVE NEGA TIVE [facility] DallasUrine phencyclidine detection by screening kpemaf2722-99-58 08:08:00* Test Item Value Reference Range Interpretation Comments Urine Phencyclidine Screen (test code = 97607-9) NEGATIVE NEGAT KELSEA [facility] DallasUrine amphetamines detection by screen method > 1000 ng/bS8400-33-66 08:08:00* Test Item Value Reference Range Interpretation Comments Urine Amphetamines Screen (test code = 83960-5) NEGATIVE NEGATI VE [facility] DallasFluoroscopic procedure less than one hour qaavdtqh7915-43-15 08:08:00* Test Item Value Reference Range Interpretation Comments Urine Methamphetamines Screen (test code = Urine Metha mphetamines Screen) NEGATIVE NEGATIVE [facility] DallasUrine benzodiazepines detection by screening lsswhq2845-00-89 08:08:00* Test Item Value Reference Range Interpretation Comments Urine Benzodiazepines Screen (test code = 32937-6) NEGATIVE NEG ATIVE [facility] DallasUrine cocaine measurement (mass/volume) 2020-07-12 08:08:00* Test Item Value Reference Range Interpretation Comments Urine Cocaine Screen (test code = 3398-5) NEGATIVE NEGATIVE [facility] DallasUrine cannabinoids detection by screening fnnlmz2043-11-95 08:08:00* Test Item Value Reference Range Interpretation Comments Urine Cannabinoids Screen (test code = 65594-2) NEGATIVE NEGATI VE THESE RESULTS ARE FOR MEDICAL TREATMENT ONLYTHIS REPORT CONTAINS UNCONFIR MED SCREENING RESULTS*POSITIVE RESULTS WILL BE CONFIRMED BY REFERENCE LAB UPON R EQUEST CUT-OFFDRUG CLASS CONCENTRATION ng/mLAmphetamines 1000Methamphetamines 1000Cocaine 300Opiate 300Phencyc lidine 25Cannabinoid 50Barbiturates 300Benzodiazepine 300Methadone 300[facility] DallasUrine methadone dkmoyj0956-97-37 08:08:00* Test Item Value Reference Range Interpretation Comments Urine Methadone Screen (test code = 60360-9) NEGATIVE NEGATIVE THESE RESULTS ARE FOR MEDICAL TREATMENT ONLYTHIS REPORT CONTAINS UNCONFIR MED SCREENING RESULTS*POSITIVE RESULTS WILL BE CONFIRMED BY REFERENCE LAB UPON R EQUEST CUT-OFFDRUG CLASS CONCENTRATION ng/mLAmphetamines 1000Methamphetamines 1000Cocaine Metabolite 300Opiate 300Phencyc lidine 25Cannabinoid 50Barbiturates 300Benzodiazepine 300Methadone 300[facility] DallasUrine urobilinogen measurement by test strip (mass/volume)2020-07-12 08:08:00* Test Item Value Reference Range Interpretation Comments Urine Urobilinogen (test code = 83608-6) 2.0 0.2-1 [facility] DallasUrine total bilirubin measurement (mass/volume)2020-07-12 08:08:00* Test Item Value Reference Range Interpretation Comments Urine Bilirubin (test code = 1978-6) MODERATE NEGATIVE [facility] DallasUrine erythrocytes uasoamzpb4697-08-25 08:08:00* Test Item Value Reference Range Interpretation Comments Urine Blood (test code = 48723-5) NEGATIVE NEGATIVE [facility] DallasAutomated urine sediment leukocyte count by microscopy (number/high power field)2020-07-12 08:08:00* Test Item Value Reference Range Interpretation Comments Urine WBC (test code = 5821-4) 0-5 0-5 [facility] DallasErythrocytes detection in urine sediment by light ounckyhdvk2345-09-13 08:08:00* Test Item Value Reference Range Interpretation Comments Urine RBC (test code = 94757-3) 0-5 0-5 [facility] DallasBacteria detection in urine sediment by light apfzjwxors9900-27-13 08:08:00* Test Item Value Reference Range Interpretation Comments Urine Bacteria (test code = 77727-0) RARE NONE [facility] DallasEpithelial cells detection in urine sediment by light mrxcceuxpb4469-39-55 08:08:00* Test Item Value Reference Range Interpretation Comments Urine Epithelial Cells (test code = 55365-9) FEW NONE [facility] DallasFluoroscopic procedure less than one hour wvgufxxh3438-11-99 08:05:00* Test Item Value Reference Range Interpretation Comments Coronavirus (PCR) (test code = Coronavirus (PCR)) NOT DETECTED NOTD ETECTED [employer] Aptima SARS-CoV-2 assay is a nucleic amplification test intended for the qualitative detection of RNA from SARS-CoV-2 from nasopharyngeal (COMPUTER APPLICATION DEVELOPER) specimens . It is used under Emergency Use Authorization (EUA) by FDA.A positive result is indicative of the presence of SARS-CoV-2 RNA. Clinical correlation with patient history and other diagnostic information is necessary to determine patient infe ction status.A negative (Not Detected) result does not preclude SARS-CoV-2 infec tion. Clinical Correlation with patient history and other diagnostic information should be used in patient management decisions.Invalid: Unable to generate a va lid result on this specimen. Please submit a new specimen for reprat testing oc clinically indicated.Tesing performed by:[facility] [address] [place] [id number] burgos MD, PhD [facility] DallasFluoroscopic procedure less than one hour anwdtchz7946-20-25 08:05:00* Test Item Value Reference Range Interpretation Comments Coronavirus (PCR) (test code = Coronavirus (PCR)) NOT DETECTED NOTD ETECTED [employer] Aptima SARS-CoV-2 assay is a nucleic amplification test intended for the qualitative detection of RNA from SARS-CoV-2 from nasopharyngeal (COMPUTER APPLICATION DEVELOPER) specimens . It is used under Emergency Use Authorization (EUA) by FDA.A positive result is indicative of the presence of SARS-CoV-2 RNA. Clinical correlation with patient history and other diagnostic information is necessary to determine patient infe ction status.A negative (Not Detected) result does not preclude SARS-CoV-2 infec tion. Clinical Correlation with patient history and other diagnostic information should be used in patient management decisions.Invalid: Unable to generate a va lid result on this specimen. Please submit a new specimen for reprat testing oc clinically indicated.Tesing performed by:[facility] [address] [place] [address] [id number] burgos MD, PhD [facility] DallasCT CERVICAL SPINE [id number] 06:08:00 [place] [address] Patient Name: CAROL TRIMBLE MR #: [id number] : 1960 Age/Sex: 59/M Req #: [id number] Adm Physician: Ordered by: DAVONTE CAMPOVERDE MD Report #: [id number] Location: ER Room/Bed: Procedure: [id number] CT/ CT CERVICAL SPINE WO Exam Date: 07/12/20 Exam Time: 0510 REPORT STATUS: Signed CT BR AIN WO, CT CERVICAL SPINE WO HISTORY: Confusion, fall COMPARISON: Hea d CT 07/02/2020 TECHNIQUE: Axial noncontrast CT images were obtained throu gh the head and cervical spine. Coronal and sagittal reconstructions obtained from the axial data. One or more of the following dose reduction techniques w ere used: Automated exposure control, adjustment of the mA and/or kV according to patient size, and/or utilization of iterative reconstruction technique. DISCUSSION: HEAD CT: Scalp/Skull: Unremarkable. Brain sulci : Mildly prominent. Ventricles: Compensatory dilatation. Extra-axial spac es: No masses or fluid collections. Carotid siphon and vertebral artery gema cifications are present. Parenchyma: Mild to moderate periventricular wh ite matter hypodensities are likely chronic microvascular ischemic changes. Otherwise, no masses, hemorrhage, or large vascular territory acute infarct. Dural sinuses: No abnormal densities. Sellar/Suprasellar region: Intact. Skull base: Intact. Incidental findings: None. CERVICAL SPINE CT: Shoulder streak artifacts obscure some details. Cervical lordosis is straight ened. There is no significant scoliosis. Mild bone demineralization limits e valuation. No definite acute fracture or compression deformity is seen. The craniocervical junction is intact. No gross spinal canal masses are see n. The paravertebral and paraspinal soft tissues are unremarkable. Dege nerative changes: Moderate multilevel spondylosis is most prominent at C5-C6. Underlying grade 1 anterolisthesis of C5 on C6 is due to severe right C5-C6 fa cet arthrosis. There is at least mild canal stenosis at C3-C4 due to posterior disc osteophyte complex. Multilevel mild to moderate bilateral foraminal sten oses are due to uncovertebral and facet arthrosis. Prominent atlantoaxial arth rosis is present as well. Incidental findings: There is mild scarring an emphysematous change at the partially imaged right lung apex. Mild bilateral carotid bulb calcified plaque is present. IMPRESSION: Head CT: 1. N o acute intracranial abnormalities. 2. Mild to moderate supratentorial chroni c microvascular ischemic change. Mild generalized cerebral volume loss. C ervical Spine CT: 1. No acute osseous abnormalities in the cervical spine. 2. Moderate multilevel spondylosis, most prominent at C5-C6. Underlying grade 1 anterolisthesis of C5 on C6 is due to severe right C5-C6 facet arthrosis. Signed by: Dr. Dru Peter M.D. on 07/12/2020 6:20 AM Dictated By: Linda PETER MD 01 Transcribed By: JOSE on 07/12/20619 COPY TO: DAVONTE CAMPOVERDE MD CT BRAIN [id number] 06:08:00 [place] [address] Patient Name: CAROL TRIMBLE MR #: [id number] : 1960 Age/Sex: 59/M Req #: [id number] Adm Physician: Ordered by: DAVONTE CAMPOVERDE MD Report #: [id number] Location: ER Room/Bed: Procedure: [id number] CT/ CT BRAIN WO Exam Date: 07/12/20 Exam Time: 0510 REPORT STATUS: Signed CT BRAIN WO, C T CERVICAL SPINE WO HISTORY: Confusion, fall COMPARISON: Head CT 07/02 TECHNIQUE: Axial noncontrast CT images were obtained through the ad and cervical spine. Coronal and sagittal reconstructions obtained from the axial data. One or more of the following dose reduction techniques were used: Automated exposure control, adjustment of the mA and/or kV according to patie nt size, and/or utilization of iterative reconstruction technique. DISCUS JOHN: HEAD CT: Scalp/Skull: Unremarkable. Brain sulci: Mildly prominent. Ventricles: Compensatory dilatation. Extra-axial spaces: No masses or fluid collections. Carotid siphon and vertebral artery calcificatio ns are present. Parenchyma: Mild to moderate periventricular white matte r hypodensities are likely chronic microvascular ischemic changes. Otherwise , no masses, hemorrhage, or large vascular territory acute infarct. Dural s inuses: No abnormal densities. Sellar/Suprasellar region: Intact. Skull bas e: Intact. Incidental findings: None. CERVICAL SPINE CT: Shoulder streak artifacts obscure some details. Cervical lordosis is straightened. T here is no significant scoliosis. Mild bone demineralization limits evaluation . No definite acute fracture or compression deformity is seen. The scraper loader operator niocervical junction is intact. No gross spinal canal masses are seen. The paravertebral and paraspinal soft tissues are unremarkable. Degenerative changes: Moderate multilevel spondylosis is most prominent at C5-C6. Underlyin g grade 1 anterolisthesis of C5 on C6 is due to severe right C5-C6 facet arthr osis. There is at least mild canal stenosis at C3-C4 due to posterior disc ost eophyte complex. Multilevel mild to moderate bilateral foraminal stenoses are due to uncovertebral and facet arthrosis. Prominent atlantoaxial arthrosis is present as well. Incidental findings: There is mild scarring an emphysem atous change at the partially imaged right lung apex. Mild bilateral carotid b ulb calcified plaque is present. IMPRESSION: Head CT: 1. No acute i ntracranial abnormalities. 2. Mild to moderate supratentorial chronic microva scular ischemic change. Mild generalized cerebral volume loss. Cervical S pine CT: 1. No acute osseous abnormalities in the cervical spine. 2. Moder ate multilevel spondylosis, most prominent at C5-C6. Underlying grade 1 chaim listhesis of C5 on C6 is due to severe right C5-C6 facet arthrosis. Signed by: Dr. Dru Peter M.D. on 07/12/2020 6:20 AM Dictated By: DRU BENAVIDEZ MD 0620 Trans cribed By: JOSE on 07/12/20619 COPY TO: DAVONTE CAMPOVERDE MD CHEST SINGLE (PORTABLE)2020-07-12 05:48:00 [place] [address] Patient Name: CAROL TRIMBLE MR #: [id number] : 1960 Age/Sex: 59/M Req #: [id number] Adm Physician: SHAY BARAJAS MD Ordered by: DAVONTE CAMPOVERDE MD Report #: [id number] Location: MED/SURG2 Room/Bed: [facility] Procedure: [id number] DX/ CHEST SINGLE (PORTABLE) Exam Date: 07/12/20 Exam Sen e: 0510 REPORT STATUS: Signed EX AMINATION: CHEST SINGLE (PORTABLE) INDICATION: confusion COMPARIS ON: Chest radiograph dated 03/19/2020 FINDINGS: Stable cardiom egaly. Increased interstitial pulmonary markings. No consolidation. No pleu ral effusion. No pneumothorax. IMPRESSION: Cardiomegaly with intersti tial edema is favored. Atypical pneumonia/viral infection less favored. Signed by: Raissa Mai MD on 07/12/2020 5:57 AM Dictated By: RAISSA MAI MD Transcrib ed By: JOSE on 07/12/20556 COPY TO: DAVONTE CAMPOVERDE MD HIP RIGHT 2-3 VW (+/- PELVIS)2020-07-12 05:44:00 [place] [address] Patient Name: CAROL TRIMBLE MR #: [id number] : 1960 Age/Sex: 59/M Req #: [id number] Adm Physician: Ordered by: DAVONTE CAMPOVERDE MD Report #: [id number] Location: ER Room/Bed: Procedure: [id number] DX/ HIP RIGHT 2-3 VW (+/- PELVIS) Exam Date: Exam Time: REPORT STATUS: Signed XRAY RIG HT HIP 2 VIEWS HISTORY: Pain. fall COMPARISON: None available. FINDINGS: Bones: No acute displaced fracture. Osseous alignment is wit hin normal limits. Joints: The joint spaces are well-maintained. Sof t tissues: Skin maria elena project over the right hip. Pelvic surgical clip. IMPRESSION: No acute fracture or dislocation of the right hip. Sign ed by: Raissa Mai MD on 07/12/2020 5:48 AM Dictated By: RAISSA MAI MD 7 Transcribed By: JOSE on 07/12/20547 COPY TO: DAVONTE CAMPOVERDE MD Prothrombin time (PT) in platelet poor plasma by coagulation [id number] 04:25:00* Test Item Value Reference Range Interpretation Comments Prothrombin Time (test code = 5902-2) 15.2 11.9-14.5 [facility] Dallas[facility] in Platelet poor plasma by Coagulation [id number] 04:25:00* Test Item Value Reference Range Interpretation Comments Prothromb Time International Ratio (test code = 6301-6) 1.14 Oral Anticoagulant Therapy INR Values:1. Low Intensity Therapy 1.5 - 2.02 . Moderate Intensity Therapy 2.0 - 3.03. High Intensity Therapy(1) 2.5 - 3. 54. High Intensity Therapy(2) 3.0 - 4.05. Panic Value INR > 5.0 [facility] DallasActivated partial thromboplastin time (aPTT) in platelet poor plasma by coagulation [id number] 04:25:00* Test Item Value Reference Range Interpretation Comments Activated Partial Thromboplast Time (test code = 23422-8) 33.0 23.8-35.5 [facility] DallasAmmonia [id number] 04:25:00* Test Item Value Reference Range Interpretation Comments Ammonia (test code = 92373-5) 85 31-123 [facility] creatine kinase measurement (enzymatic activity/volume)2020-07-12 04:25:00* Test Item Value Reference Range Interpretation Comments Creatine Kinase (test code = 2157-6) 46 30-200 [facility] plasma creatine kinase MB measurement (mass/volume)2020-07-12 04:25:00* Test Item Value Reference Range Interpretation Comments Creatine Kinase MB (test code = 30205-9) 1.60 0-5.0 [facility] DallasTroponin I measurement by highly sensitive enzyme oguhqecezas3748-97-26 04:25:00* Test Item Value Reference Range Interpretation Comments Troponin I (test code = 82858-7) 0.062 0-0.300 [facility] or plasma ethanol measurement (mass/volume)2020-07-12 04:25:00* Test Item Value Reference Range Interpretation Comments Ethyl Alcohol Level (test code = 5643-2) < 10.0 0.0-10.0 [facility] DallasProthrombin time (PT) in platelet poor plasma by coagulation qnkmo2365-83-94 04:25:00* Test Item Value Reference Range Interpretation Comments Prothrombin Time (test code = 5902-2) 15.2 11.9-14.5 [facility] DallasINR in Platelet poor plasma by Coagulation [id number] 04:25:00* Test Item Value Reference Range Interpretation Comments Prothromb Time International Ratio (test code = 6301-6) 1.14 Oral Anticoagulant Therapy INR Values:1. Low Intensity Therapy 1.5 - 2.02 . Moderate Intensity Therapy 2.0 - 3.03. High Intensity Therapy(1) 2.5 - 3. 54. High Intensity Therapy(2) 3.0 - 4.05. Panic Value INR > 5.0 [facility] DallasActivated partial thromboplastin time (aPTT) in platelet poor plasma by coagulation [id number] 04:25:00* Test Item Value Reference Range Interpretation Comments Activated Partial Thromboplast Time (test code = 79291-8) 33.0 23.8-35.5 [facility] DallasAmmonia Zfq-cWio8993-08-31 04:25:00* Test Item Value Reference Range Interpretation Comments Ammonia (test code = 54873-1) 85 31-123 [facility] or plasma creatine kinase measurement (enzymatic activity/volume)2020-07-12 04:25:00* Test Item Value Reference Range Interpretation Comments Creatine Kinase (test code = 2157-6) 46 30-200 [facility] or plasma creatine kinase MB measurement (mass/volume)2020-07-12 04:25:00* Test Item Value Reference Range Interpretation Comments Creatine Kinase MB (test code = 29665-8) 1.60 0-5.0 [facility] DallasTroponin I measurement by highly sensitive enzyme adpcwhggkik8724-26-79 04:25:00* Test Item Value Reference Range Interpretation Comments Troponin I (test code = 94465-0) 0.062 0-0.300 [facility] or plasma ethanol measurement (mass/volume)2020-07-12 04:25:00* Test Item Value Reference Range Interpretation Comments Ethyl Alcohol Level (test code = 5643-2) < 10.0 0.0-10.0 [facility] or plasma thiamine measurement (moles/volume)2020-07-12 04:25:00* Test Item Value Reference Range Interpretation Comments Vitamin B1 Level (test code = 89797-0) 131.3 66.5-200.0 Performed at: [facility] [id number] Senior Information Security Consultant: Anette Winn MD, Phone: [phone] [facility] DallasBlood leukocytes automated count (number/volume)2020-07-05 05:08:00* Test Item Value Reference Range Interpretation Comments White Blood Count (test code = 6690-2) 5.89 4.8-10.8 [facility] DallasBlood erythrocytes automated count (number/volume)2020-07-05 05:08:00* Test Item Value Reference Range Interpretation Comments Red Blood Count (test code = 789-8) 4.13 4.3-5.7 [facility] DallasBlood hemoglobin measurement (moles/volume)2020-07-05 05:08:00* Test Item Value Reference Range Interpretation Comments Hemoglobin (test code = 93197-2) 12.7 14.0-18.0 [facility] DallasAutomated blood hematocrit (volume fraction)2020-07-05 05:08:00* Test Item Value Reference Range Interpretation Comments Hematocrit (test code = 4544-3) 38.3 38.2-49.6 [facility] DallasAutomated erythrocyte mean corpuscular rpghbu0735-70-19 05:08:00* Test Item Value Reference Range Interpretation Comments Mean Corpuscular Volume (test code = 787-2) 92.7 81-99 [facility] DallasAutomated erythrocyte mean corpuscular hemoglobin (mass per erythrocyte)2020-07-05 05:08:00* Test Item Value Reference Range Interpretation Comments Mean Corpuscular Hemoglobin (test code = 785-6) 30.8 28-32 [facility] DallasAutomated erythrocyte mean corpuscular hemoglobin concentration measurement (mass/volume)2020-07-05 05:08:00* Test Item Value Reference Range Interpretation Comments Mean Corpuscular Hemoglobin Concent (test code = 786-4) 33.2 31-35 [facility] DallasRDW JkgTz-Jjk4181-77-24 05:08:00* Test Item Value Reference Range Interpretation Comments Red Cell Distribution Width (test code = 85184-8) 15.0 11.7 -14.4 [facility] DallasAutomated blood platelet count (count/volume)2020-07-05 05:08:00* Test Item Value Reference Range Interpretation Comments Platelet Count (test code = 777-3) 103 140-360 [facility] DallasAutomated blood segmented neutrophil count as percentage of total yyjnpqtnvs4254-65-50 05:08:00* Test Item Value Reference Range Interpretation Comments Neutrophils (%) (Auto) (test code = 99446-4) 66.9 38.7-80.0 [facility] DallasAutomated blood lymphocyte count as percentage ot total sknxonexze6383-05-02 05:08:00* Test Item Value Reference Range Interpretation Comments Lymphocytes (%) (Auto) (test code = 736-9) 17.5 18.0-39.1 [facility] DallasAutomated blood monocyte count as percentage of total vfbyxcwsdi3842-09-35 05:08:00* Test Item Value Reference Range Interpretation Comments Monocytes (%) (Auto) (test code = 5905-5) 11.5 4.4-11.3 [facility] DallasAutomated blood eosinophil count as percentage of total yjqmvhsvau2116-64-54 05:08:00* Test Item Value Reference Range Interpretation Comments Eosinophils (%) (Auto) (test code = 713-8) 3.1 0.0-6.0 [facility] DallasAutomated blood basophil count as percentage of total fctdicyfoy5847-34-81 05:08:00* Test Item Value Reference Range Interpretation Comments Basophils (%) (Auto) (test code = 706-2) 0.7 0.0-1.0 [facility] DallasFluoroscopic procedure less than one hour ekmwyptz5588-33-16 05:08:00* Test Item Value Reference Range Interpretation Comments IM GRANULOCYTES % (test code = IM GRANULOCYTES %) 0.3 0.0- 1.0 [facility] DallasAutomated blood neutrophil count 2020-07-05 05:08:00* Test Item Value Reference Range Interpretation Comments Neutrophils # (Auto) (test code = 751-8) 3.9 2.1-6.9 [facility] DallasBlood lymphocytes count (number/volume) 2020-07-05 05:08:00* Test Item Value Reference Range Interpretation Comments Lymphocytes # (Auto) (test code = 14447-3) 1.0 1.0-3.2 [facility] DallasBlood monocytes automated count (number/volume)2020-07-05 05:08:00* Test Item Value Reference Range Interpretation Comments Monocytes # (Auto) (test code = 742-7) 0.7 0.2-0.8 [facility] DallasAutomated blood eosinophil count 2020-07-05 05:08:00* Test Item Value Reference Range Interpretation Comments Eosinophils # (Auto) (test code = 711-2) 0.2 0.0-0.4 [facility] DallasAutomated blood basophil count (count/volume)2020-07-05 05:08:00* Test Item Value Reference Range Interpretation Comments Basophils # (Auto) (test code = 704-7) 0.0 0.0-0.1 [facility] DallasFluoroscopic procedure less than one hour gybhcqtl5786-51-96 05:08:00* Test Item Value Reference Range Interpretation Comments Absolute Immature Granulocyte (auto (bradford t code = Absolute Immature Granulocyte (auto) 0.02 0-0.1 [facility] DallasPlatelet udmqvfxdgr4903-82-94 05:08:00* Test Item Value Reference Range Interpretation Comments Platelet Morphology Comment (test code = 12651-4) See Comment NO EDTA PLT CLUMPS SEENSaint Mark[facility] Medical Centererum or plasma sodium measurement (moles/volume)2020-07-05 05:08:00* Test Item Value Reference Range Interpretation Comments Sodium Level (test code = 2951-2) 136 136-145 [facility]ererum or plasma potassium measurement (moles/volume)2020-07-05 05:08:00* Test Item Value Reference Range Interpretation Comments Potassium Level (test code = 2823-3) 4.2 3.5-5.1 [facility]ererum or plasma chloride measurement (moles/volume)2020-07-05 05:08:00* Test Item Value Reference Range Interpretation Comments Chloride Level (test code = 2075-0) 105 98-107 [facility]ererum or plasma carbon dioxide, total measurement (moles/volume)2020-07-05 05:08:00* Test Item Value Reference Range Interpretation Comments Carbon Dioxide Level (test code = 2028-9) 24 22-29 [facility]ererum or plasma anion [id number] 05:08:00* Test Item Value Reference Range Interpretation Comments Anion Gap (test code = 18316-4) 11.2 8-16 [facility]ererum or plasma urea nitrogen measurement (mass/volume)2020-07-05 05:08:00* Test Item Value Reference Range Interpretation Comments Blood Urea Nitrogen (test code = 3094-0) 12 7-26 [facility]ererum or plasma creatinine measurement (mass/volume)2020-07-05 05:08:00* Test Item Value Reference Range Interpretation Comments Creatinine (test code = 2160-0) 0.67 0.72-1.25 [facility]ererum or plasma urea nitrogen/creatinine mass wsecu5272-06-85 05:08:00* Test Item Value Reference Range Interpretation Comments BUN/Creatinine Ratio (test code = 3097-3) 18 6-25 [facility] DallasEstimated glomerular filtration rate (GFR) vtuuhthxlpffx5975-80-93 05:08:00* Test Item Value Reference Range Interpretation Comments Estimat Glomerular Filtration Rate (test code = 289254698) > 60 >60 Ranges were taken from the National Kidney Disease Education Program and the [facility] Kid[facility] Foundation literature.Reference ranges:60 or greater: Lpkgjh16-01 ( for 3 consecutive months): Chronic kidney disease 15 or less: Kidney failureBaylor Scott & White Heart and Vascular Hospital – DallasGlucose iraoewinkzo1896-33-05 05:08:00* Test Item Value Reference Range Interpretation Comments Glucose Level (test code = TXK4082) 95 74-118 [facility]ererum or plasma calcium measurement (mass/volume)2020-07-05 05:08:00* Test Item Value Reference Range Interpretation Comments Calcium Level (test code = 73077-6) 7.9 8.4-10.2 [facility] DallasPlatelet kclchluagn2284-82-20 05:08:00* Test Item Value Reference Range Interpretation Comments Platelet Morphology Comment (test code = 11594-0) See Comment NO EDTA PLT CLUMPS SEENBaylor Scott & White Heart and Vascular Hospital – DallasPlatelet dmbofywlnu5991-84-66 05:08:00* Test Item Value Reference Range Interpretation Comments Platelet Morphology Comment (test code = 65490-8) See Comment NO EDTA PLT CLUMPS SEENSaint Mark's Medical Centererum or plasma total bilirubin measurement (mass/volume)2020-07-03 08:15:00* Test Item Value Reference Range Interpretation Comments Total Bilirubin (test code = 1975-2) 5.8 0.2-1.2 [facility] DallasFluoroscopic procedure less than one hour asjvcfwn0934-00-41 08:15:00* Test Item Value Reference Range Interpretation Comments Aspartate Amino Transf (AST/SGOT) (test code = Aspartate Amino Transf (AST/SGOT)) 57 5-34 [facility]ererum or plasma alanine aminotransferase measurement (enzymatic activity/volume)2020-07-03 08:15:00* Test Item Value Reference Range Interpretation Comments Alanine Aminotransferase (ALT/SGPT) (test code = 1742-6) 34 0-55 [facility]ererum or plasma protein measurement (mass/volume)2020-07-03 08:15:00* Test Item Value Reference Range Interpretation Comments Total Protein (test code = 2885-2) 6.4 6.5-8.1 [facility]ererum or plasma albumin measurement (mass/volume)2020-07-03 08:15:00* Test Item Value Reference Range Interpretation Comments Albumin (test code = 1751-7) 2.1 3.5-5.0 [facility] DallasPlasma globulin measurement (mass/volume) 2020-07-03 08:15:00* Test Item Value Reference Range Interpretation Comments Globulin (test code = 00423-9) 4.3 2.3-3.5 [facility]ererum or plasma albumin/globulin mass eehwv8664-31-18 08:15:00* Test Item Value Reference Range Interpretation Comments Albumin/Globulin Ratio (test code = 1759-0) 0.5 0.8-2.0 [facility]ererum or plasma alkaline phosphatase measurement (enzymatic activity/volume)2020-07-03 08:15:00* Test Item Value Reference Range Interpretation Comments Alkaline Phosphatase (test code = 6768-6) 340 40-150 [facility] DallasFluoroscopic procedure less than one hour wvcoozeb1315-68-35 01:30:00* Test Item Value Reference Range Interpretation Comments Coronavirus (PCR) (test code = Coronavirus (PCR)) NOT DETECTED NOTD ETECTED [employer] SARS-CoV-2 assay is a nucleic amplification test intended for the qualitative detection of RNA from SARS-CoV-2 from nasopharyngeal (COMPUTER APPLICATION DEVELOPER) specimens . It is used under Emergency Use Authorization (EUA) by FDA.A positive result is indicative of the presence of SARS-CoV-2 RNA. Clinical correlation with patient history and other diagnostic information is necessary to determine patient infe ction status.A negative (Not Detected) result does not preclude SARS-CoV-2 infec tion. Clinical Correlation with patient history and other diagnostic information should be used in patient management decisions.Invalid: Unable to generate a va lid result on this specimen. Please submit a new specimen for reprat testing oc clinically indicated.Tesing performed by:[facility] [address] [place] [address] [id number], Davonte Flores MD, PhD [facility] DallasUrine color htglystllsisq3700-81-09 20:47:00* Test Item Value Reference Range Interpretation Comments Urine Color (test code = 5778-6) ALB[place] YELLOW [facility] DallasUrine dmqmymg5890-52-03 20:47:00* Test Item Value Reference Range Interpretation Comments Urine Clarity (test code = 33896-1) SL CLOUDY CLEAR [facility] Centerpecific gravity of Urine by Test strip 2020-07-02 20:47:00* Test Item Value Reference Range Interpretation Comments Urine Specific Idalou (test code = 5811-5) 1.015 1.010-1.02 5 [facility] DallasUrine pH measurement by automated test [id number] 20:47:00* Test Item Value Reference Range Interpretation Comments Urine pH (test code = 61468-1) 7 5-7 [facility] DallasUrine leukocyte esterase detection by oijyiqeo7054-68-62 20:47:00* Test Item Value Reference Range Interpretation Comments Urine Leukocyte Esterase (test code = 5799-2) NEGATIVE NEGATIVE [facility] DallasUrine nitrite cevffvrvo4298-22-88 20:47:00* Test Item Value Reference Range Interpretation Comments Urine Nitrite (test code = 31583-4) NEGATIVE NEGATIVE [facility] DallasUrine protein measurement by test strip (mass/volume)2020-07-02 20:47:00* Test Item Value Reference Range Interpretation Comments Urine Protein (test code = 5804-0) NEGATIVE NEGATIVE [facility] DallasUrine glucose qrdqgczph6647-20-83 20:47:00* Test Item Value Reference Range Interpretation Comments Urine Glucose (UA) (test code = 2349-9) NEGATIVE NEGATIVE [facility] DallasUrine ketones detection by automated test kofny4243-27-10 20:47:00* Test Item Value Reference Range Interpretation Comments Urine Ketones (test code = 88290-2) NEGATIVE NEGATIVE [facility] DallasUrine opiates screening jmis1707-06-68 20:47:00* Test Item Value Reference Range Interpretation Comments Urine Opiates Screen (test code = 80315-5) POSITIVE NEGATIVE ALL TESTS PERFORMED MANUALLY ON [employer] TOX/SEE TEST This test provides only a sc reen. Positive results should be repeated by a confirmatory test.[facility] DallasBarbiturates screen, [id number] 20:47:00* Test Item Value Reference Range Interpretation Comments Urine Barbiturates Screen (test code = 484637239) NEGATIVE NEGA TIVE [facility] DallasUrine phencyclidine detection by screening [id number] 20:47:00* Test Item Value Reference Range Interpretation Comments Urine Phencyclidine Screen (test code = 03033-7) NEGATIVE NEGAT KELSEA [facility] DallasUrine amphetamines detection by screen method > 1000 [id number] 20:47:00* Test Item Value Reference Range Interpretation Comments Urine Amphetamines Screen (test code = 34732-0) NEGATIVE NEGATI VE [facility] DallasFluoroscopic procedure less than one hour [id number] 20:47:00* Test Item Value Reference Range Interpretation Comments Urine Methamphetamines Screen (test code = Urine Metha mphetamines Screen) NEGATIVE NEGATIVE [facility] DallasUrine benzodiazepines detection by screening [id number] 20:47:00* Test Item Value Reference Range Interpretation Comments Urine Benzodiazepines Screen (test code = 39630-0) NEGATIVE NEG ATIVE [facility] DallasUrine cocaine measurement (mass/volume) 2020-07-02 20:47:00* Test Item Value Reference Range Interpretation Comments Urine Cocaine Screen (test code = 3398-5) NEGATIVE NEGATIVE [facility] DallasUrine cannabinoids detection by screening [id number] 20:47:00* Test Item Value Reference Range Interpretation Comments Urine Cannabinoids Screen (test code = 02209-7) NEGATIVE NEGATI VE THESE RESULTS ARE FOR MEDICAL TREATMENT ONLYTHIS REPORT CONTAINS UNCONFIR MED SCREENING RESULTS*POSITIVE RESULTS WILL BE CONFIRMED BY REFERENCE LAB UPON R EQUEST CUT-OFFDRUG CLASS CONCENTRATION ng/mLAmphetamines 1000Methamphetamines 1000Cocaine 300Opiate 300Phencyc lidine 25Cannabinoid 50Barbiturates 300Benzodiazepine 300Methadone 300[facility] DallasUrine methadone [id number] 20:47:00* Test Item Value Reference Range Interpretation Comments Urine Methadone Screen (test code = 92590-9) NEGATIVE NEGATIVE THESE RESULTS ARE FOR MEDICAL TREATMENT ONLYTHIS REPORT CONTAINS UNCONFIR MED SCREENING RESULTS*POSITIVE RESULTS WILL BE CONFIRMED BY REFERENCE LAB UPON R EQUEST CUT-OFFDRUG CLASS CONCENTRATION ng/mLAmphetamines 1000Methamphetamines 1000Cocaine Metabolite 300Opiate 300Phencyc lidine 25Cannabinoid 50Barbiturates 300Benzodiazepine 300Methadone 300[facility] DallasUrine urobilinogen measurement by test strip (mass/volume)2020-07-02 20:47:00* Test Item Value Reference Range Interpretation Comments Urine Urobilinogen (test code = 95388-9) 1 0.2-1 [facility] DallasUrine total bilirubin measurement (mass/volume)2020-07-02 20:47:00* Test Item Value Reference Range Interpretation Comments Urine Bilirubin (test code = 1978-6) SMALL NEGATIVE [facility] DallasUrine erythrocytes [id number] 20:47:00* Test Item Value Reference Range Interpretation Comments Urine Blood (test code = 29162-6) TRACE NEGATIVE [facility] DallasAutomated urine sediment leukocyte count by microscopy (number/high power field)2020-07-02 20:47:00* Test Item Value Reference Range Interpretation Comments Urine WBC (test code = 5821-4) NONE 0-5 [facility] DallasErythrocytes detection in urine sediment by light [id number] 20:47:00* Test Item Value Reference Range Interpretation Comments Urine RBC (test code = 93982-1) 0-5 0-5 [facility] DallasBacteria detection in urine sediment by light zbyaxqcfqp6649-69-19 20:47:00* Test Item Value Reference Range Interpretation Comments Urine Bacteria (test code = 99944-3) NONE NONE [facility] DallasEpithelial cells detection in urine sediment by light xfakloemhp0440-53-21 20:47:00* Test Item Value Reference Range Interpretation Comments Urine Epithelial Cells (test code = 39966-8) RARE NONE [facility] DallasCT BRAIN [id number] 20:18:00 [facility] [address] [place] [address] Patient Name: CAROL TRIMBLE MR #: [id number] : 1960 Age/Sex: 59/M Req #: [id number] Adm Physician: Ordered by: KATERINA GERARD DO Report #: [id number] Location: [facility]/Bed: Procedure: [id number] CT/CT BRAIN WO Exam Date: 07/02/20 Exam Time: 1915 REPORT STATUS: Signed Exam: Head CT without contrast History: Possible stroke, resolving facial droop Comparison studie s: None per Technique: Axial images were obtained from the skull base to the vertex. Coronal and sagittal images reconstructed from the axial data. D ose modulation, iterative reconstruction, and/or weight based adjustment of th e mA/kV was utilized to reduce the radiation dose to as low as reasonably ac hievable. Radiation dose: Total DLP: 947.23 mGy*cm. Estimated effec tive dose: DLP x 0.015 Intravenous contrast: None Findings: Scalp: Incidental small focal nonspecific soft tissue swelling or scarring in the lef t posterior parietal scalp. Bones: No fractures, blastic or lytic lesions. Brain sulci: Appropriate for age. Ventricles: Normal in size and configur ation. No hydrocephalus. Extra-axial spaces: No masses, no fluid collection. Parenchyma: Ill-defined confluent hypodensities in the supratentorial wh ite matter are nonspecific but are most compatible with chronic microvascular ischemic changes. No masses, hemorrhage, acute or chronic vascular insults. Sellar/suprasellar region: No abnormalities. Craniocervical junction: Pat ent foramen magnum. No Chiari one malformation. Middle ear cavities and mas toids: Clear. Included paranasal sinuses: Clear. Incidental findings: Atherosclerotic calcifications in the carotid siphons and intradural vertebral arteries. IMPRESSION: 1. No acute intracranial abnormalities. 2. Moderate chronic microvascular ischemic changes. Brain MRI could further evaluate if there remains persistent concern for acute ischemia. Signed b y: Dr. Lore Atkins M.D. on 07/02/2020 8:23 PM Dictated By: LORE NOEL MD 22 Transcrib ed By: JOSE on 07/02/202022 COPY TO: KATERINA GERARD DO CT ABDOMEN/PELVIS [id number] 19:35:00 [place] [address] Patient Name: CAROL TRIMBLE MR #: [id number] : 1960 Age/Sex: 59/M Req #: [id number] Adm Physician: Ordered by: KATERINA GERARD DO Report #: [id number] Location: ER Room/Bed: Procedure: [id number] CT/CT ABDOM EN/PELVIS W Exam Date: 07/02/20 Exam Time: 1914 REPORT STATUS: Signed CT Abdomen And Pelvis with Intravenous Contrast INDICATION: RLQ pain , inguinal mary ia TECHNIQUE: Thin collimation axial images obtained from the diaphragm to the level of the pubic symphysis following the uneventful administration of 10 0 cc of low osmolar, nonionic intravenous contrast. Dose reduction techni ques used: Automated exposure control, adjustment of the mAs and/or kVp accord ing to patient size, standardized low-dose protocol, and/or iterative reconstr uction technique. RADIATION DOSE: Total DLP: 647.68 mGy*cm Estimated effective dose: (DLP x 0.015 x size factor) mSv CTDIvol sanders s been reviewed. It is below the limits set by the Radiation Protocol Committe e ([facility]). COMPARISON: Right upper quadrant ultrasound 03/20/2020. ABDOME N FINDINGS: Lung Bases: The heart is mildly enlarged with coronary artery c alcifications. Wispy bands of subsegmental atelectasis/scarring in the middle lobe. Small esophageal varices. Liver: Lobulated contours. Subsegmental c alcified granuloma in the liver dome.. No evidence for mass. Gallbladder : Absent. Intrahepatic bile ducts are distended. The common bile duct measures 10 mm in diameter without intraluminal filling defect. By ultrasound, the com mon bile duct measured 0.6 cm Pancreas: Mildly trophic. No mass or ductal d ilatation. Spleen: Measures 20 cm in length. No mass. Adrenal Glands: No evidence of nodule. Kidneys: Right: Normal enhancement. No soft t issue mass. Subcentimeter calculus in the interpolar region measures 4 mm. No hydronephrosis. Left: Normal enhancement. No soft tissue mass. No hydron ephrosis. Lymph Nodes: Prominent periportal and gastrohepatic lymph nodes. A lymph node in the tosha hepatis measures 1.1 cm in AP dimension. Lymph node in the gastrohepatic ligament measures 1.2 cm in AP dimension. Increased numbe r of aortocaval lymph nodes measuring up to 8 mm. Aorta: Diffusely calc ified and normal in diameter Portal vein: Measures 1.5 cm in diameter. No i ntraluminal filling defects PELVIS FINDINGS: Bowel: Stomach: Sean apsed. No evidence of mass. Small Bowel: Enteric contrast in the mid small bow el. One small bowel loop in the midabdomen is distended to 3 cm with inspissat ed enteric contents. Large Bowel: Mild mural thickening of the right colon and transverse colon. Scattered diverticulosis. There are clips at the base o f the cecum. Appendix: Not visualized and may be absent. Bladder: Well- distended and normal in appearance. Prostate gland and seminal vesicles china ear unremarkable for age Peritoneum/retroperitoneum: Small amount of free f luid in the pelvis and surrounding the liver. Diffuse edema of the small bowel mesentery. No free air. There is a dropped surgical clip in the lower right p cyndy. Soft tissues: Right femoral hernia contains fat and fluid. The neck is approximately 9 mm. The soft tissues surrounding the hernia are edematous. Bones: Mild degenerative changes of the spine. Posterior disc bulges from L 3-4 to L5-S1. No focal osseous lesions. IMPRESSION: 1. Distended s mall bowel loop with inspissated enteric contents suggestive of low-grade part ial small bowel obstruction. 2. Fat and fluid containing right femoral he rnia with inflammation of the adjacent soft tissues. Findings are concerning f or incarceration. 3. Cirrhosis and portal hypertension with splenomegaly, s mall paraesophageal varices, and small amount of ascites. 5. Mild mural t hickening of the colon may be secondary to portal hypertension. Mild burden of diverticulosis coli. 6. Status post cholecystectomy. Increasing common cain e duct distention of uncertain etiology. Signed by: Dr. Hood Moon MD on 07/02/2020 7:54 PM Dictated By: HOOD MOON MD Electronical ly Signed By: HOOD MOON MD on 07/02/201953 Transcribed By: JOSE on 07/02/201953 COPY TO: KATERINA GERARD DO Prothrombin time (PT) in platelet poor plasma by coagulation [id number] 17:55:00* Test Item Value Reference Range Interpretation Comments Prothrombin Time (test code = 5902-2) 15.7 11.9-14.5 [facility] DallasINR in Platelet poor plasma by Coagulation [id number] 17:55:00* Test Item Value Reference Range Interpretation Comments Prothromb Time International Ratio (test code = 6301-6) 1.18 Oral Anticoagulant Therapy INR Values:1. Low Intensity Therapy 1.5 - 2.02 . Moderate Intensity Therapy 2.0 - 3.03. High Intensity Therapy(1) 2.5 - 3. 54. High Intensity Therapy(2) 3.0 - 4.05. Panic Value INR > 5.0 [facility] DallasActivated partial thromboplastin time (aPTT) in platelet poor plasma by coagulation [id number] 17:55:00* Test Item Value Reference Range Interpretation Comments Activated Partial Thromboplast Time (test code = 61986-7) 33.3 23.8-35.5 [facility] by glucometer (mass/volume)2020-03-22 15:25:00* Test Item Value Reference Range Interpretation Comments Bedside Glucose (test code = 35161-2) 88 70-120 Meter ID: [id number] Scott & [facility] – DallasCapillary blood glucose measurement by glucometer (mass/volume)2020-03-22 15:25:00* Test Item Value Reference Range Interpretation Comments Bedside Glucose (test code = 73648-3) 88 70-120 Meter ID: [id number] Scott & [facility] and [facility]ascular [facility] – DallasCapillary blood glucose measurement by glucometer (mass/volume)2020-03-22 15:25:00* Test Item Value Reference Range Interpretation Comments Bedside Glucose (test code = 43889-6) 88 70-120 Meter ID: [id number] Scott & [facility] – DallasCapillary blood glucose measurement by glucometer (mass/volume)2020-03-22 15:25:00* Test Item Value Reference Range Interpretation Comments Bedside Glucose (test code = 18751-7) 88 70-120 Meter ID: [id number] Scott & [facility] – DallasBlood leukocytes automated count (number/volume)2020-03-22 05:05:00* Test Item Value Reference Range Interpretation Comments White Blood Count (test code = 6690-2) 4.97 4.8-10.8 [facility] DallasBlood erythrocytes automated count (number/volume)2020-03-22 05:05:00* Test Item Value Reference Range Interpretation Comments Red Blood Count (test code = 789-8) 4.74 4.3-5.7 [facility] DallasBlood hemoglobin measurement (moles/volume)2020-03-22 05:05:00* Test Item Value Reference Range Interpretation Comments Hemoglobin (test code = 84917-4) 14.5 14.0-18.0 [facility] DallasAutomated blood hematocrit (volume fraction)2020-03-22 05:05:00* Test Item Value Reference Range Interpretation Comments Hematocrit (test code = 4544-3) 42.9 38.2-49.6 [facility] DallasAutomated erythrocyte mean corpuscular [id number] 05:05:00* Test Item Value Reference Range Interpretation Comments Mean Corpuscular Volume (test code = 787-2) 90.5 81-99 [facility] DallasAutomated erythrocyte mean corpuscular hemoglobin (mass per erythrocyte)2020-03-22 05:05:00* Test Item Value Reference Range Interpretation Comments Mean Corpuscular Hemoglobin (test code = 785-6) 30.6 28-32 [facility] DallasAutomated erythrocyte mean corpuscular hemoglobin concentration measurement (mass/volume)2020-03-22 05:05:00* Test Item Value Reference Range Interpretation Comments Mean Corpuscular Hemoglobin Concent (test code = 786-4) 33.8 31-35 [facility] DallasRDW CbqZx-Brl7774-66-11 05:05:00* Test Item Value Reference Range Interpretation Comments Red Cell Distribution Width (test code = 06178-9) 14.4 11.7 -14.4 [facility] DallasAutomated blood platelet count (count/volume)2020-03-22 05:05:00* Test Item Value Reference Range Interpretation Comments Platelet Count (test code = 777-3) 82 140-360 [facility] DallasAutomated blood segmented neutrophil count as percentage of total yzrpkelanj5197-98-30 05:05:00* Test Item Value Reference Range Interpretation Comments Neutrophils (%) (Auto) (test code = 87093-5) 54.3 38.7-80.0 [facility] DallasAutomated blood lymphocyte count as percentage ot total joqlgnyocr5145-73-29 05:05:00* Test Item Value Reference Range Interpretation Comments Lymphocytes (%) (Auto) (test code = 736-9) 27.6 18.0-39.1 [facility] DallasAutomated blood monocyte count as percentage of total npigxmuyhv8515-36-41 05:05:00* Test Item Value Reference Range Interpretation Comments Monocytes (%) (Auto) (test code = 5905-5) 11.9 4.4-11.3 [facility] DallasAutomated blood eosinophil count as percentage of total onlocnjomv5556-89-00 05:05:00* Test Item Value Reference Range Interpretation Comments Eosinophils (%) (Auto) (test code = 713-8) 4.4 0.0-6.0 [facility] DallasAutomated blood basophil count as percentage of total qbvhtahrfa8376-02-25 05:05:00* Test Item Value Reference Range Interpretation Comments Basophils (%) (Auto) (test code = 706-2) 1.6 0.0-1.0 [facility] DallasFluoroscopic procedure less than one hour rlcgifny2739-59-38 05:05:00* Test Item Value Reference Range Interpretation Comments IM GRANULOCYTES % (test code = IM GRANULOCYTES %) 0.2 0.0- 1.0 [facility] DallasAutomated blood neutrophil count 2020-03-22 05:05:00* Test Item Value Reference Range Interpretation Comments Neutrophils # (Auto) (test code = 751-8) 2.7 2.1-6.9 [facility] DallasBlood lymphocytes count (number/volume) 2020-03-22 05:05:00* Test Item Value Reference Range Interpretation Comments Lymphocytes # (Auto) (test code = 81784-8) 1.4 1.0-3.2 [facility] DallasBlood monocytes automated count (number/volume)2020-03-22 05:05:00* Test Item Value Reference Range Interpretation Comments Monocytes # (Auto) (test code = 742-7) 0.6 0.2-0.8 [facility] DallasAutomated blood eosinophil count 2020-03-22 05:05:00* Test Item Value Reference Range Interpretation Comments Eosinophils # (Auto) (test code = 711-2) 0.2 0.0-0.4 [facility] DallasAutomated blood basophil count (count/volume)2020-03-22 05:05:00* Test Item Value Reference Range Interpretation Comments Basophils # (Auto) (test code = 704-7) 0.1 0.0-0.1 [facility] DallasFluoroscopic procedure less than one hour qdkbshzb3845-58-69 05:05:00* Test Item Value Reference Range Interpretation Comments Absolute Immature Granulocyte (auto (bradford t code = Absolute Immature Granulocyte (auto) 0.01 0-0.1 [facility] sodium measurement (moles/volume)2020-03-22 05:05:00* Test Item Value Reference Range Interpretation Comments Sodium Level (test code = 2951-2) 138 136-145 [facility]ererum [facility] plasma potassium measurement (moles/volume)2020-03-22 05:05:00* Test Item Value Reference Range Interpretation Comments Potassium Level (test code = 2823-3) 3.6 3.5-5.1 [facility]ererum [facility] plasma chloride measurement (moles/volume)2020-03-22 05:05:00* Test Item Value Reference Range Interpretation Comments Chloride Level (test code = 2075-0) 105 98-107 [facility]ererum [facility] plasma carbon dioxide, total measurement (moles/volume)2020-03-22 05:05:00* Test Item Value Reference Range Interpretation Comments Carbon Dioxide Level (test code = 2028-9) 26 22-29 [facility]ererum or plasma anion pft9395-03-42 05:05:00* Test Item Value Reference Range Interpretation Comments Anion Gap (test code = 19437-5) 10.6 8-16 [facility] plasma urea nitrogen measurement (mass/volume)2020-03-22 05:05:00* Test Item Value Reference Range Interpretation Comments Blood Urea Nitrogen (test code = 3094-0) 11 7-26 [facility]ererum [facility] plasma creatinine measurement (mass/volume)2020-03-22 05:05:00* Test Item Value Reference Range Interpretation Comments Creatinine (test code = 2160-0) 0.67 0.72-1.25 [facility]ererum or plasma urea nitrogen/creatinine mass [id number] 05:05:00* Test Item Value Reference Range Interpretation Comments BUN/Creatinine Ratio (test code = 3097-3) 16 6-25 [facility] DallasEstimated glomerular filtration rate (GFR) kvoptvyaeragr2175-10-67 05:05:00* Test Item Value Reference Range Interpretation Comments Estimat Glomerular Filtration Rate (test code = 289598604) > 60 >60 Ranges were taken from the National Kidney Disease Education Program and the [facility] Kidney Foundation literature.Reference ranges:60 or greater: Sdyghh43-84 ( for 3 consecutive months): Chronic kidney disease 15 or less: Kidney failureBaylor Scott & White Heart and Vascular Hospital – DallasGlucose vbcasifqxyp5622-84-77 05:05:00* Test Item Value Reference Range Interpretation Comments Glucose Level (test code = KSI5702) 87 74-118 [facility]ere[facility] or plasma calcium measurement (mass/volume)2020-03-22 05:05:00* Test Item Value Reference Range Interpretation Comments Calcium Level (test code = 72998-0) 8.4 8.4-10.2 [facility]ererum or plasma total bilirubin measurement (mass/volume)2020-03-22 05:05:00* Test Item Value Reference Range Interpretation Comments Total Bilirubin (test code = 1975-2) 1.7 0.2-1.2 [facility] DallasFluoroscopic procedure less than one hour gxrjxzjj9768-01-41 05:05:00* Test Item Value Reference Range Interpretation Comments Aspartate Amino Transf (AST/SGOT) (test code = Aspartate Amino Transf (AST/SGOT)) 63 5-34 [facility]ererum or plasma alanine aminotransferase measurement (enzymatic activity/volume)2020-03-22 05:05:00* Test Item Value Reference Range Interpretation Comments Alanine Aminotransferase (ALT/SGPT) (test code = 1742-6) 28 0-55 [facility]ererum or plasma protein measurement (mass/volume)2020-03-22 05:05:00* Test Item Value Reference Range Interpretation Comments Total Protein (test code = 2885-2) 6.9 6.5-8.1 [facility]ererum or plasma albumin measurement (mass/volume)2020-03-22 05:05:00* Test Item Value Reference Range Interpretation Comments Albumin (test code = 1751-7) 2.5 3.5-5.0 [facility] DallasPlasma globulin measurement (mass/volume) 2020-03-22 05:05:00* Test Item Value Reference Range Interpretation Comments Globulin (test code = 15505-7) 4.4 2.3-3.5 [facility]rum or plasma albumin/globulin mass lzpvo3335-03-66 05:05:00* Test Item Value Reference Range Interpretation Comments Albumin/Globulin Ratio (test code = 1759-0) 0.6 0.8-2.0 [facility]ererum or plasma alkaline phosphatase measurement (enzymatic activity/volume)2020-03-22 05:05:00* Test Item Value Reference Range Interpretation Comments Alkaline Phosphatase (test code = 6768-6) 344 40-150 [facility]ererum or plasma trough vancomycin level at trough (mass/volume)2020-03-22 05:05:00* Test Item Value Reference Range Interpretation Comments Vancomycin Level Trough (test code = 4092-3) 8.8 5.0-10.0 [facility]ererum or plasma trough vancomycin level at trough (mass/volume)2020-03-22 05:05:00* Test Item Value Reference Range Interpretation Comments Vancomycin Level Trough (test code = 4092-3) 8.8 5.0-10.0 [facility] plasma trough vancomycin level at trough (mass/volume)2020-03-22 05:05:00* Test Item Value Reference Range Interpretation Comments Vancomycin Level Trough (test code = 4092-3) 8.8 5.0-10.0 [facility] plasma trough vancomycin level at trough (mass/volume)2020-03-22 05:05:00* Test Item Value Reference Range Interpretation Comments Vancomycin Level Trough (test code = 4092-3) 8.8 5.0-10.0 [facility] DallasBlood platelets count by estimate (number/volume)2020-03-21 06:00:00* Test Item Value Reference Range Interpretation Comments Platelet Estimate (test code = 35439-6) MODERATELY DECREASED NO EDTA PLT CLUMPSCHI [facility]woodPlatelet morphology 2020-03-21 06:00:00* Test Item Value Reference Range Interpretation Comments Platelet Morphology Comment (test code = 52292-5) NORMAL [facility] wfwcwjyatr2051-21-34 06:00:00* Test Item Value Reference Range Interpretation Comments Red Cell Morphology Comment (test code = 6742-1) NORMAL [facility] platelets count by estimate (number/volume)2020-03-21 06:00:00* Test Item Value Reference Range Interpretation Comments Platelet Estimate (test code = 02076-0) MODERATELY DECREASED NO EDTA PLT CLUMPSCHI [facility] morphology 2020-03-21 06:00:00* Test Item Value Reference Range Interpretation Comments Red Cell Morphology Comment (test code = 6742-1) [facility] by [facility] (number/volume)2020-03-21 06:00:00* Test Item Value Reference Range Interpretation Comments Platelet Estimate (test code = 60847-6) MODERATELY DECREASED NO EDTA PLT CLUMPSCHI [facility] morphology 2020-03-21 06:00:00* Test Item Value Reference Range Interpretation Comments Red Cell Morphology Comment (test code = 6742-1) NORMAL [facility] platelets count by estimate (number/volume)2020-03-21 06:00:00* Test Item Value Reference Range Interpretation Comments Platelet Estimate (test code = 90284-7) MODERATELY DECREASED NO EDTA PLT CLUMPSCHI [facility] morphology 2020-03-21 06:00:00* Test Item Value Reference Range Interpretation Comments Red Cell Morphology Comment (test code = 6742-1) [facility] creatine kinase measurement (enzymatic activity/volume)2020-03-20 16:15:00* Test Item Value Reference Range Interpretation Comments Creatine Kinase (test code = 2157-6) 57 30-200 [facility] creatine kinase MB measurement (mass/volume)2020-03-20 16:15:00* Test Item Value Reference Range Interpretation Comments Creatine Kinase MB (test code = 87043-4) 3.20 0-5.0 [facility] Dallas[facility] I measurement by highly sensitive enzyme cjxdduqwivm4743-56-05 16:15:00* Test Item Value Reference Range Interpretation Comments Troponin I (test code = 60985-9) 0.024 0-0.300 [facility] creatine kinase measurement (enzymatic activity/volume)2020-03-20 16:15:00* Test Item Value Reference Range Interpretation Comments Creatine Kinase (test code = 2157-6) 57 30-200 [facility] creatine kinase MB measurement (mass/volume)2020-03-20 16:15:00* Test Item Value Reference Range Interpretation Comments Creatine Kinase MB (test code = 51731-9) 3.20 0-5.0 [facility] DallasTrop[facility] I measurement by highly sensitive enzyme rirzxkfmiix9162-88-21 16:15:00* Test Item Value Reference Range Interpretation Comments Troponin I (test code = 24692-9) 0.024 0-0.300 [facility] DallasUS FCUWV2524-05-66 11:39:00 [place] [address] Patient Name: CAROL TRIMBLE MR #: [id number] : 1960 Age/Sex: 59/M Req #: [id number] Adm Physician: SHAY BARAJAS MD Ordered by: CORBY XIE MD Report #: [id number] Location: MED/SURG3 Ro om/Bed: 285-1 Procedure: [id number] US/US LIVE R Exam Date: 03/20/20 Exam [...] Acid (test code = 3084-1) 4.1 4.8-8.0 [facility] uric acid measurement (mass/volume)2020-03-20 06:20:00* Test Item Value Reference Range Interpretation Comments Uric Acid (test code = 3084-1) 4.1 4.8-8.0 [facility] uric acid measurement (mass/volume)2020-03-20 06:20:00* Test Item Value Reference Range Interpretation Comments Uric Acid (test code = 3084-1) 4.1 4.8-8.0 [facility] uric acid measurement (mass/volume)2020-03-20 06:20:00* Test Item Value Reference Range Interpretation Comments Uric Acid (test code = 3084-1) 4.1 4.8-8.0 [facility] DallasFOOT LEFT [id number] 18:10:00 [place] [address] Patient Name: CAROL TRIMBLE MR #: [id number] : 1960 Age/Sex: 59/M Req #: [id number] Adm Physician: Ordered by: NIDA CALDERON MD Report #: [id number] Location: ER Room/Bed: Procedure: [id number] DX/FOOT LEFT COM PLETE Exam Date: 03/19/20 Exam Time: 1739 REPORT STATUS: Signed Foot complete C PT code: 84934 Indication: infection LE CELLULITIS, O2 SAT 94% [...] changes as described above. Signed by: Dr. Hood Moon MD on 03/19/2020 6:16 PM Dict ated By: HOOD MOON MD 15 Transcribed By: JOSE on 03/19/201815 COPY TO: NIDA CALDERON MD Fluoroscopic procedure less than one hour aqohortq5141-86-10 18:01:00* Test Item Value Reference Range Interpretation [...] to perform high complexity tests.Specimen sent to [facility] and testing performed by Clinical Pathology [address] [place] [address] [phone] Director: Prabhakar Silveira M.D.CLIA # [id number] [facility] SINGLE (PORTABLE) 2020-03-19 17:59:00 [place] [address] Patient Name: CAROL TRIMBLE MR #: [id number] : 1960 Age/Sex: 59/M Req #: [id number] Adm Physician: Ordered by: NIDA CALDERON MD Report #: [id number] Location: ER Room/Bed: Procedure: [id number] DX/CHEST SINGLE (PORTABLE) Exam Date: 03/19/20 Exam [...] No acute cardiopulmonary process. Signed by: Dr. Hood Moon MD on 03/19/2020 6:10 PM Dictated By: HOOD MOON MD 1810 COPY TO: NIDA CALDERON MD Prothrombin time (PT) in platelet poor plasma by coagulation assay 2020-03-19 17:10:00* Test Item Value Reference Range Interpretation Comments Prothrombin Time (test code = 5902-2) 15.4 11.9-14.5 [facility] DallasINR in Platelet poor plasma by Coagulation fzjwu2734-34-21 17:10:00* Test Item Value Reference Range Interpretation Comments Prothromb Time International Ratio (test code = 6301-6) 1.15 Oral Anticoagulant Therapy INR Values:1. Low Intensity Therapy 1.5 - 2.02 . Moderate Intensity Therapy 2.0 - 3.03. High Intensity Therapy(1) 2.5 - 3. 54. High Intensity Therapy(2) 3.0 - 4.05. Panic Value INR > 5.0 [facility] DallasActivated partial thromboplastin time (aPTT) in platelet poor plasma by coagulation hjtlt5214-27-26 17:10:00* Test Item Value Reference Range Interpretation Comments Activated Partial Thromboplast Time (test code = 37516-8) 32.6 23.8-35.5 [facility] DallasUrine color umqhawqdnkykv8232-95-74 17:10:00* Test Item Value Reference Range Interpretation Comments Urine Color (test code = 5778-6) ORANGE YELLOW [facility] DallasUrine pxsmvmu7260-29-71 17:10:00* Test Item Value Reference Range Interpretation Comments Urine Clarity (test code = 10714-6) SL CLOUDY CLEAR [facility] U[facility] by Test strip 2020-03-19 17:10:00* Test Item Value Reference Range Interpretation Comments Urine Specific Idalou (test code = 5811-5) >=1.030 1.010-1.02 5 [facility] DallasUrine pH measurement by automated test jzsfw3540-30-14 17:10:00* Test Item Value Reference Range Interpretation Comments Urine pH (test code = 53616-9) 6 5-7 [facility] DallasUrine leukocyte esterase detection by aifzlrok3841-57-15 17:10:00* Test Item Value Reference Range Interpretation Comments Urine Leukocyte Esterase (test code = 5799-2) NEGATIVE NEGATIVE [facility] DallasUrine nitrite idnbiayqs0320-82-27 17:10:00* Test Item Value Reference Range Interpretation Comments Urine Nitrite (test code = 54351-2) POSITIVE NEGATIVE [facility] DallasUrine protein measurement by test strip (mass/volume)2020-03-19 17:10:00* Test Item Value Reference Range Interpretation Comments Urine Protein (test code = 5804-0) 1+ NEGATIVE [facility] DallasUrine glucose uudivqqom4212-69-32 17:10:00* Test Item Value Reference Range Interpretation Comments Urine Glucose (UA) (test code = 2349-9) NEGATIVE NEGATIVE [facility] DallasUrine ketones detection by automated test kcysj2451-45-34 17:10:00* Test Item Value Reference Range Interpretation Comments Urine Ketones (test code = 67251-0) NEGATIVE NEGATIVE [facility] DallasUrine opiates screening lnoc0351-42-20 17:10:00* Test Item Value Reference Range Interpretation Comments Urine Opiates Screen (test code = 45418-5) NEGATIVE NEGATIVE ALL TESTS PERFORMED MANUALLY ON [employer] TOX/SEE TESTB[facility] – DallasBarbiturates screen, qntjw1613-31-80 17:10:00* Test Item Value Reference Range Interpretation Comments Urine Barbiturates Screen (test code = 430898573) NEGATIVE NEGA TIVE [facility] DallasUrine phencyclidine detection by screening imhryh9816-50-25 17:10:00* Test Item Value Reference Range Interpretation Comments Urine Phencyclidine Screen (test code = 78351-5) NEGATIVE NEGAT KELSEA [facility] DallasUrine amphetamines detection by screen method > 1000 ng/eM6890-00-41 17:10:00* Test Item Value Reference Range Interpretation Comments Urine Amphetamines Screen (test code = 04468-5) POSITIVE NEGATI VE This test provides only a screen. Positive results should be repeated by a confi rmatory test.[facility] DallasFluoroscopic procedure less than one hour mwgnxbmz0709-00-73 17:10:00* Test Item Value Reference Range Interpretation Comments Urine Methamphetamines Screen (test code = Urine Metha mphetamines Screen) NEGATIVE NEGATIVE [facility] DallasUrine benzodiazepines detection by screening qwfoae5145-38-53 17:10:00* Test Item Value Reference Range Interpretation Comments Urine Benzodiazepines Screen (test code = 89158-7) POSITIVE NEG ATIVE This test provides only a screen. Positive results should be repeated by a confi rmatory test.[facility] DallasUrine cocaine measurement (mass/volume)2020-03-19 17:10:00* Test Item Value Reference Range Interpretation Comments Urine Cocaine Screen (test code = 3398-5) NEGATIVE NEGATIVE [facility] DallasUrine cannabinoids detection by screening llzyul5268-16-79 17:10:00* Test Item Value Reference Range Interpretation Comments Urine Cannabinoids Screen (test code = 06950-5) NEGATIVE NEGATI VE THESE RESULTS ARE FOR MEDICAL TREATMENT ONLYTHIS REPORT CONTAINS UNCONFIR MED SCREENING RESULTS*POSITIVE RESULTS WILL BE CONFIRMED BY REFERENCE LAB UPON R EQUEST CUT-OFFDRUG CLASS CONCENTRATION ng/mLAmphetamines 1000Methamphetamines 1000Cocaine 300Opiate 300Phencyc lidine 25Cannabinoid 50Barbiturates 300Benzodiazepine 300Methadone 300[facility]woodU[facility] methadone uyhale6653-78-76 17:10:00* Test Item Value Reference Range Interpretation Comments Urine Methadone Screen (test code = 09155-0) NEGATIVE NEGATIVE THESE RESULTS ARE FOR MEDICAL TREATMENT ONLYTHIS REPORT CONTAINS UNCONFIR MED SCREENING RESULTS*POSITIVE RESULTS WILL BE CONFIRMED BY REFERENCE LAB UPON R EQUEST CUT-OFFDRUG CLASS CONCENTRATION ng/mLAmphetamines 1000Methamphetamines 1000Cocaine Metabolite 300Opiate 300Phencyc lidine 25Cannabinoid 50Barbiturates 300Benzodiazepine 300Methadone 300[facility] KingwoodUrine urobilinogen measurement by test strip (mass/volume)2020-03-19 17:10:00* Test Item Value Reference Range Interpretation Comments Urine Urobilinogen (test code = 74950-8) 0.2 0.2-1 [facility] DallasUrine total bilirubin measurement (mass/volume)2020-03-19 17:10:00* Test Item Value Reference Range Interpretation Comments Urine Bilirubin (test code = 1978-6) MODERATE NEGATIVE [facility] DallasUrine erythrocytes etlaelnkd9643-38-74 17:10:00* Test Item Value Reference Range Interpretation Comments Urine Blood (test code = 72102-5) NEGATIVE NEGATIVE [facility] DallasAutomated urine sediment leukocyte count by microscopy (number/high power field)2020-03-19 17:10:00* Test Item Value Reference Range Interpretation Comments Urine WBC (test code = 5821-4) 0-5 0-5 [facility] DallasErythrocytes detection in urine sediment by light uugyghcfsf6540-71-56 17:10:00* Test Item Value Reference Range Interpretation Comments Urine RBC (test code = 19582-1) NONE 0-5 [facility] DallasBacteria detection in urine sediment by light ebvbpqkijh8036-55-16 17:10:00* Test Item Value Reference Range Interpretation Comments Urine Bacteria (test code = 03869-6) MODERATE NONE [facility] DallasEpithelial cells detection in urine sediment by light qyoiozckad1914-31-12 17:10:00* Test Item Value Reference Range Interpretation Comments Urine Epithelial Cells (test code = 64724-2) FEW NONE [facility] DallasAmorphous sediment detection in urine sediment by light qkaeakbcna3139-72-40 17:10:00* Test Item Value Reference Range Interpretation Comments Urine Amorphous Sediment (test code = 8246-1) FEW FEW [facility] DallasHyaline casts detection in urine sediment by light svjwonivsi6594-83-61 17:10:00* Test Item Value Reference Range Interpretation Comments Urine Hyaline Casts (test code = 67058-9) 2-5 0-1 [facility] DallasMucus detection in urine sediment by light xnuziwmada9725-39-25 17:10:00* Test Item Value Reference Range Interpretation Comments Urine Mucus (test code = 8247-9) MODERATE RARE [facility] DallasBlood tjjnjlr9152-28-33 17:10:00* Test Item Value Reference Range Interpretation Comments Blood Culture (test code = 07009437) NO GROWTH AFTER 72 HOURS [facility] DallasAmorphous sediment detection in urine sediment by light pkictmnpnc8586-15-49 17:10:00* Test Item Value Reference Range Interpretation Comments Urine Amorphous Sediment (test code = 8246-1) FEW FEW [facility] DallasHyaline casts detection in urine sediment by light ugybqpjqhn7564-23-05 17:10:00* Test Item Value Reference Range Interpretation Comments Urine Hyaline Casts (test code = 35209-8) 2-5 0-1 [facility] DallasMucus detection in urine sediment by light ixkrrdoblw7530-34-33 17:10:00* Test Item Value Reference Range Interpretation Comments Urine Mucus (test code = 8247-9) MODERATE RARE [facility] DallasBlood hqzwljm5223-51-17 17:10:00* Test Item Value Reference Range Interpretation Comments Blood Culture (test code = 52417207) NO GROWTH AFTER 5 DAYS, FINAL REPORT [facility] DallasAmorphous sediment detection in urine sediment by light wyszfpgufc5539-88-11 17:10:00* Test Item Value Reference Range Interpretation Comments Urine Amorphous Sediment (test code = 8246-1) FEW FEW [facility] DallasHyaline casts detection in urine sediment by light ndobdoxedh1325-26-49 17:10:00* Test Item Value Reference Range Interpretation Comments Urine Hyaline Casts (test code = 29231-4) 2-5 0-1 [facility] DallasMucus detection in urine sediment by light abkpufsnkl8082-27-56 17:10:00* Test Item Value Reference Range Interpretation Comments Urine Mucus (test code = 8247-9) MODERATE RARE [facility] DallasBlood nehxoyu9495-81-53 17:10:00* Test Item Value Reference Range Interpretation Comments Blood Culture (test code = 48036827) NO GROWTH AFTER 5 DAYS, FINAL REPORT [facility] DallasAmorphous sediment detection in urine sediment by light dkiynoixec8784-07-38 17:10:00* Test Item Value Reference Range Interpretation Comments Urine Amorphous Sediment (test code = 8246-1) FEW FEW [facility] DallasBlood ybjjokf1365-33-85 17:10:00* Test Item Value Reference Range Interpretation Comments Blood Culture (test code = 92838218) NO GROWTH AFTER 5 DAYS, FINAL REPORT [facility]- CT L-SPINE W/O UZAICNGD3891-39-26 10:46:00 [facility] 1960 Age/S: 59 / M [address] [facility] Unit #: [id number] Loc: [place] [address] Phys: Sunil Pedro MD Acct: [id number] Dis Date: Status: REG ER PHONE #: [phone] Exam Date: 12/16/2019 09 FAX #: [phone] Reason: trauma, pain EXAMS: CPT CODE: [id number] CT L-SPINE W/O CONTRAST 62769 HISTORY: trauma, pain TECHNIQUE: 2.5 mm axial [...] foraminal or central canal stenosis. Location: [facility] PAGE 1 Signed Report (C ONTINUED) [facility] : 1960 Age/S: 59 / M [address] [facility] it #: [id number] Loc: [place] [address] Phys: Sunli Pedro MD Acct: [id number] Dis Date: Status: REG ER PHONE #: [phone] Exam Date: 12/16/2019 0955 FAX #: [phone] Reason: trauma, pain E XAMS: CPT CODE: [id number] CT L-SPINE W/O CONTRAST 52609 <Continued> at 1046 Reported and signed by: Dariusz Neal MD CC: Sunil Pedro MD; Shay Armijo Techntu gist:KASIE FERNANDES, (R),CT CTDI: DLP: Trnscb Date/Time: 12/16/2019 (1046) [email or web address] Orig Print D/T: S: 12/16/2019 (4099) PAGE 2 Signed Report
[2020-08-25] MEDS ORDERED: IOPAMIDOL 370 MG/ML 200 ML INFUS..BTL INJ ONE (07:37)
[2020-08-25] MEDS ORDERED: SODIUM CHLORIDE 0.9% 50ML 50 ML ONE (07:37)
[2020-08-25] MEDS ORDERED: KETOROLAC TROMETHAMINE 30 MG/ML VIAL IV STA (08:30)
--- NOTE | 2020-08-25 09:22 | Diagnostic Imaging Report ---
CT of the abdomen and pelvis, with contrast, 08/25/2020. History: Right flank/abdominal pain. Comparison: 08/09/2020. Technique: Multidetector CT scanning of the abdomen and pelvis was performed from the level of the lung bases to the inferior pubic rami after intravenous administration of contrast. No oral contrast was given. Coronal and sagittal multiplanar reformations were obtained. RADIATION DOSE: Total DLP: 810 mGy*cm Dose modulation, iterative reconstruction, and/or weight based adjustment of the mA/kV was utilized to reduce the radiation dose to as low as reasonably achievable. Discussion: LUNG BASES: There is bibasilar atelectasis. ABDOMEN: Cholecystectomy clips are present. There is mild intra and extrahepatic biliary ductal dilatation without evidence of choledocholithiasis. There is slight nodularity of the liver surface contour. Spleen is enlarged measuring 20 cm in length. The main portal vein is dilated measuring 18 mm in diameter. Gastroesophageal varices are present. There is mild right hydronephrosis and dilatation of the proximal right ureter down to the level of L4-L5 where a 3 mm stone is present. A 2 mm stone is also present in the upper pole of the right kidney. There is right perinephric fat stranding. The pancreas, adrenal glands, and left kidney are normal. The hepatic vein, portal vein, and splenic vein are patent. The abdominal aorta is within normal limits for size. Evaluation of bowel is limited without oral contrast. There is no bowel dilatation. Mild diffuse small and large bowel wall thickening is again noted. Minimal ascites is present. Surgical clips are noted in the right lower quadrant. PELVIS: The bladder, prostate, and seminal vesicles are normal in appearance. There is minimal free fluid. BONES AND SOFT TISSUES: Degenerative changes are present throughout the lumbar spine without evidence of lytic or sclerotic lesion. IMPRESSION: 1. A 3 mm stone is present in the proximal right ureter causing mild right hydronephrosis. 2. Cirrhotic liver with findings of portal venous hypertension. 3. Status post cholecystectomy. Signed by: Benedicto Lemus on 08/25/2020 9:19 AM
[2020-08-25 09:23] LABS: BILIRUBIN,URINE SMALL (NEGATIVE); CLARITY,URINE HAZY (CLEAR); COLOR,URINE YELLOW (YELLOW); KETONES,URINE NEGATIVE (NEGATIVE); LEUKOCYTE ESTERASE ,URINE NEGATIVE (NEGATIVE); NITRITE,URINE NEGATIVE (NEGATIVE); PROTEIN,URINE DIPSTICK TRACE (NEGATIVE); URINE UROBILINOGEN 0.2 mg/dL (0.2 - 1)
[2020-08-25 09:33] VITALS: BP 142/80
[2020-08-25 09:54] LABS: BACTERIA,URINE FEW /HPF; CALCIUM OXALATE CRYSTALS,UR MODERATE (FEW); EPITHELIAL CELLS,URINE RARE /LPF; RBC,URINE >50 /HPF (0-5); WBC,URINE (MAN) 0-5 /HPF (0-5)
== END 2020-08-25 09:34 | disposition home or self-care (01) ==
LOC: ER 07:19
DX: R10.84 Generalized abdominal pain (principal); N20.0 Calculus of kidney; R11.2 Nausea with vomiting, unspecified; I10 Essential (primary) hypertension; I48.91 Unspecified atrial fibrillation; K74.60 Unspecified cirrhosis of liver; M54.9 Dorsalgia, unspecified; G89.29 Other chronic pain
CPT/HCPCS: 36415; 74177; 80053; 80320; 81001; 82550; 82553; 83690; 83880; 84484; 85025; 93005; 99284; J1885; J2270; J2405; J2550; J7030; Q9967

== ENCOUNTER 2021-01-31 20:26 | Inpatient (IN) | payer SELFPAY ==
[~2021-01-31] VITALS: Ht 182.9 cm; Wt 107.0 kg
[2021-01-31 21:54] LABS: BASOPHILS # (AUTO) 0.1 (0.0-0.1); BASOPHILS % 1.2 % (0.0-1.0); EOSINOPHILS # (AUTO) 0.1 (0.0-0.4); EOSINOPHILS % 1.5 % (0.0-6.0); HEMATOCRIT 39.6 % (38.2-49.6); HEMOGLOBIN 13.1 g/dL (14.0-18.0); LYMPHOCYTES # (AUTO) 1.2 (1.0-3.2); LYMPHOCYTES % 17.5 % (18.0-39.1); MEAN CORPUSCULAR HEMOGLOBIN 31.6 pg (28-32); MEAN CORPUSCULAR HGB CONC 33.1 g/dL (31-35); MEAN CORPUSCULAR VOLUME 95.7 fL (81-99); MONOCYTES # (AUTO) 0.7 (0.2-0.8); MONOCYTES % 9.8 % (4.4-11.3); NEUTROPHILS # (AUTO) 4.8 (2.1-6.9); NEUTROPHILS % 69.7 % (38.7-80.0); PLATELET COUNT 104 x10e3/uL (140-360); RED BLOOD COUNT 4.14 x10e6/uL (4.3-5.7); RED CELL DISTRIBUTION WIDTH 15.7 % (11.7-14.4)
[2021-01-31] MEDS ORDERED: DILTIAZEM HCL 5 MG/ML 5 ML VIAL IV STA (22:09)
[2021-01-31 22:10] LABS: ALANINE AMINOTRANSFERASE 49 IU/L (0-55); ALBUMIN 2.6 g/dL (3.5-5.0); ALBUMIN/GLOBULIN RATIO 0.5 (0.8-2.0); ALKALINE PHOSPHATASE 423 IU/L (40-150); ANION GAP 11.8 mmol/L (8-16); BLOOD UREA NITROGEN 15 mg/dL (7-26); BUN/CREATININE RATIO 13 (6-25); CALCIUM 8.1 mg/dL (8.4-10.2); CARBON DIOXIDE 23 mmol/L (22-29); CHLORIDE 104 mmol/L (98-107); CREATINE KINASE 436 IU/L (30-200); CREATININE, SERUM 1.13 mg/dL (0.72-1.25); EST GLOMERULAR FILTRATION RATE > 60 ML/MIN (60-); GLUCOSE 129 mg/dL (74-118); POTASSIUM 3.8 mmol/L (3.5-5.1); SODIUM 135 mmol/L (136-145)
[2021-02-01] MEDS ORDERED: FUROSEMIDE INJ 10 MG/ML 4 ML VIAL IV ONE (00:15)
[2021-02-01] MEDS ORDERED: MORPHINE SULFATE INJ 2 MG/ML SYR ONE (00:43)
[2021-02-01] MEDS ORDERED: ONDANSETRON HCL INJ 2MG/ML 2ML 2 MG/ML VIAL ONE (00:44)
[2021-02-01 08:45] LABS: CREATINE KINASE MB 6.2 ng/mL (0-5.0)
[2021-02-01] MEDS: MORPHINE SULFATE INJ 2 MG/ML SYR IV PRN ×2 (11:55→22:00)
[2021-02-01 15:00] VITALS: BP 138/99
[2021-02-01 17:08] VITALS: BP 138/99
[2021-02-01 20:38] VITALS: BP 141/87
[2021-02-02] VITALS (8 sets, daily range): BP systolic 119–127; BP diastolic 61–81
[2021-02-02] MEDS ORDERED: FUROSEMIDE INJ 10 MG/ML 4 ML VIAL IV ONE (01:30)
[2021-02-02] MEDS: MORPHINE SULFATE INJ 2 MG/ML SYR IV PRN ×4 (01:40→20:25)
[2021-02-02 06:38] LABS: ALANINE AMINOTRANSFERASE 45 IU/L (0-55); ALBUMIN 2.2 g/dL (3.5-5.0); ALBUMIN/GLOBULIN RATIO 0.5 (0.8-2.0); ALKALINE PHOSPHATASE 469 IU/L (40-150); BLOOD UREA NITROGEN 14 mg/dL (7-26); BUN/CREATININE RATIO 17 (6-25); CALCIUM 8.1 mg/dL (8.4-10.2); CARBON DIOXIDE 25 mmol/L (22-29); CHLORIDE 105 mmol/L (98-107); CREATININE, SERUM 0.82 mg/dL (0.72-1.25); EST GLOMERULAR FILTRATION RATE > 60 ML/MIN (60-); GLUCOSE 86 mg/dL (74-118); SODIUM 137 mmol/L (136-145)
[2021-02-02 07:17] LABS: BASOPHILS # (AUTO) 0.1 (0.0-0.1); BASOPHILS % 1.3 % (0.0-1.0); EOSINOPHILS # (AUTO) 0.1 (0.0-0.4); EOSINOPHILS % 1.9 % (0.0-6.0); HEMATOCRIT 39.3 % (38.2-49.6); HEMOGLOBIN 13.1 g/dL (14.0-18.0); LYMPHOCYTES # (AUTO) 0.8 (1.0-3.2); LYMPHOCYTES % 12.7 % (18.0-39.1); MEAN CORPUSCULAR HEMOGLOBIN 31.3 pg (28-32); MEAN CORPUSCULAR HGB CONC 33.3 g/dL (31-35); MEAN CORPUSCULAR VOLUME 93.8 fL (81-99); MONOCYTES # (AUTO) 0.5 (0.2-0.8); MONOCYTES % 7.2 % (4.4-11.3); NEUTROPHILS # (AUTO) 4.8 (2.1-6.9); NEUTROPHILS % 76.6 % (38.7-80.0); PLATELET COUNT 88 x10e3/uL (140-360); RED BLOOD COUNT 4.19 x10e6/uL (4.3-5.7); RED CELL DISTRIBUTION WIDTH 15.9 % (11.7-14.4)
[2021-02-02] MEDS: SPIRONOLACTONE 25 MG TAB PO SCH (09:36)
[2021-02-02] MEDS: FUROSEMIDE INJ 10 MG/ML 4 ML VIAL IV SCH (09:36)
[2021-02-03 00:21] VITALS: BP 136/78
[2021-02-03] MEDS: MORPHINE SULFATE INJ 2 MG/ML SYR IV PRN ×4 (04:19→22:50)
[2021-02-03 05:51] VITALS: BP 145/95
[2021-02-03 08:08] VITALS: BP 145/95
[2021-02-03] MEDS: FUROSEMIDE INJ 10 MG/ML 4 ML VIAL IV SCH ×2 (09:48→17:35)
[2021-02-03] MEDS: SPIRONOLACTONE 25 MG TAB PO SCH (09:48)
[2021-02-03 16:04] VITALS: BP 131/80
[2021-02-03 20:00] VITALS: BP 136/93
[2021-02-03 21:00] VITALS: BP 136/93
[2021-02-04] VITALS (8 sets, daily range): BP systolic 108–135; BP diastolic 77–99
[2021-02-04] MEDS: FUROSEMIDE INJ 10 MG/ML 4 ML VIAL IV SCH ×2 (06:35→17:02)
[2021-02-04] MEDS: SPIRONOLACTONE 25 MG TAB PO SCH (09:02)
[2021-02-04] MEDS: METOPROLOL TARTRATE 50 MG TAB PO SCH ×2 (09:02→16:37)
[2021-02-04] MEDS: MORPHINE SULFATE INJ 2 MG/ML SYR IV PRN ×2 (09:06→20:39)
[2021-02-05] VITALS: BP 139/86
[2021-02-05] MEDS: MORPHINE SULFATE INJ 2 MG/ML SYR IV PRN ×3 (03:07→14:25)
[2021-02-05 04:00] VITALS: BP 138/84
[2021-02-05] MEDS: FUROSEMIDE INJ 10 MG/ML 4 ML VIAL IV SCH ×2 (06:00→16:04)
[2021-02-05 07:56] VITALS: BP 118/94
[2021-02-05 08:00] VITALS: BP 118/94
[2021-02-05] MEDS: SPIRONOLACTONE 25 MG TAB PO SCH (08:00)
[2021-02-05] MEDS: METOPROLOL TARTRATE 50 MG TAB PO SCH ×2 (08:00→15:59)
[2021-02-05 12:11] VITALS: BP 117/90
[2021-02-05 16:09] VITALS: BP 107/68
== END 2021-02-05 17:31 | disposition home or self-care (01) | DRG 432 ==
LOC: ER 21:41 → ERHOLD 02-01 00:26 → MED/SURG2 02-01 14:25
PROVIDERS: ADMIT Internal Medicine; ATTEND Internal Medicine
DX: K70.30 Alcoholic cirrhosis of liver without ascites (principal); I50.33 Acute on chronic diastolic (congestive) heart failure; I48.92 Unspecified atrial flutter; J90 Pleural effusion, not elsewhere classified; I11.0 Hypertensive heart disease with heart failure; I48.91 Unspecified atrial fibrillation; Z79.01 Long term (current) use of anticoagulants; F10.10 Alcohol abuse, uncomplicated; B19.20 Unspecified viral hepatitis C without hepatic coma; D69.6 Thrombocytopenia, unspecified
CPT/HCPCS: 36415; 71045; 76700; 80053; 82105; 82550; 82553; 83880; 84484; 85025; 93005; 93306; 99251; 99284; J1940; J2270; J2405; U0002

== ENCOUNTER 2021-07-25 13:39 | Emergency (ER) | payer SELFPAY ==
[~2021-07-25] VITALS: Ht 182.9 cm; Wt 107.0 kg
[2021-07-25 15:53] LABS: BASOPHILS # (AUTO) 0.1 (0.0-0.1); BASOPHILS % 1.8 % (0.0-1.0); EOSINOPHILS # (AUTO) 0.2 (0.0-0.4); EOSINOPHILS % 2.6 % (0.0-6.0); HEMATOCRIT 42.4 % (38.2-49.6); HEMOGLOBIN 14.1 g/dL (14.0-18.0); LYMPHOCYTES # (AUTO) 1.2 (1.0-3.2); LYMPHOCYTES % 21.1 % (18.0-39.1); MEAN CORPUSCULAR HEMOGLOBIN 31.1 pg (28-32); MEAN CORPUSCULAR HGB CONC 33.3 g/dL (31-35); MEAN CORPUSCULAR VOLUME 93.4 fL (81-99); MONOCYTES # (AUTO) 0.6 (0.2-0.8); MONOCYTES % 10.7 % (4.4-11.3); NEUTROPHILS # (AUTO) 3.6 (2.1-6.9); NEUTROPHILS % 63.4 % (38.7-80.0); PLATELET COUNT 99 x10e3/uL (140-360); RED BLOOD COUNT 4.54 x10e6/uL (4.3-5.7); RED CELL DISTRIBUTION WIDTH 15.2 % (11.7-14.4)
[2021-07-25 16:15] LABS: ALBUMIN 2.6 g/dL (3.5-5.0); ALBUMIN/GLOBULIN RATIO 0.5 (0.8-2.0); ANION GAP 11.5 mmol/L (8-16); CALCIUM 8.5 mg/dL (8.4-10.2); CREATININE, SERUM 1.5 mg/dL (0.72-1.25); POTASSIUM 4.5 mmol/L (3.5-5.1)
[2021-07-25] MEDS ORDERED: SODIUM CHLORIDE 0.9% 1000ML 1,000 ML IV SCH (17:00)
[2021-07-25] MEDS ORDERED: SODIUM CHLORIDE 0.9% 50ML 50 ML ONE (17:01)
[2021-07-25] MEDS ORDERED: IOPAMIDOL 370 MG/ML 200 ML INFUS..BTL INJ ONE (17:02)
[2021-07-25] MEDS ORDERED: KETOROLAC TROMETHAMINE 30 MG/ML VIAL IV STA (18:06)
[2021-07-25 18:21] LABS: CLARITY,URINE CLEAR (CLEAR); COLOR,URINE YELLOW (YELLOW); KETONES,URINE NEGATIVE (NEGATIVE); LEUKOCYTE ESTERASE ,URINE NEGATIVE (NEGATIVE); NITRITE,URINE NEGATIVE (NEGATIVE); PROTEIN,URINE DIPSTICK NEGATIVE (NEGATIVE); URINE UROBILINOGEN 0.2 mg/dL (0.2 - 1)
[2021-07-25 18:26] LABS: RBC,URINE 0-5 /HPF (0-5); WBC,URINE (MAN) 0-5 /HPF (0-5)
[2021-07-25] MEDS ORDERED: DICYCLOMINE HCL20 MG PO (19:25)
[2021-07-25 20:25] VITALS: BP 138/82
== END 2021-07-25 20:27 | disposition home or self-care (01) ==
LOC: ER 13:42
DX: R10.32 Left lower quadrant pain (principal); X50.0XXA Overexertion from strenuous movement or load, initial encounter; F17.210 Nicotine dependence, cigarettes, uncomplicated; I10 Essential (primary) hypertension; I50.9 Heart failure, unspecified; I48.91 Unspecified atrial fibrillation; K21.9 Gastro-esophageal reflux disease without esophagitis; K76.9 Liver disease, unspecified
CPT/HCPCS: 36415; 74177; 80053; 81001; 83690; 85025; 99283; J1885; J7030; Q9967

== ENCOUNTER 2021-07-28 16:12 | Emergency (ER) | payer SELFPAY ==
[~2021-07-28] VITALS: Ht 182.9 cm; Wt 107.0 kg
[~2021-07-28 16:12] MED LIST changes: +DICYCLOMINE HCL20 MG PO
[2021-07-28] MEDS ORDERED: DILTIAZEM HCL 5 MG/ML 5 ML VIAL IV STA (17:07)
[2021-07-28] MEDS ORDERED: SODIUM CHLORIDE 0.9% 1000ML 500 ML IV STA (17:07)
[2021-07-28] MEDS ORDERED: ASPIRIN 81 MG CHEW TAB PO ONE (17:15)
[2021-07-28 17:21] LABS: BASOPHILS # (AUTO) 0.1 (0.0-0.1); BASOPHILS % 1.4 % (0.0-1.0); EOSINOPHILS # (AUTO) 0.2 (0.0-0.4); EOSINOPHILS % 2.5 % (0.0-6.0); HEMATOCRIT 43.7 % (38.2-49.6); HEMOGLOBIN 14.2 g/dL (14.0-18.0); LYMPHOCYTES # (AUTO) 1.4 (1.0-3.2); LYMPHOCYTES % 18.8 % (18.0-39.1); MEAN CORPUSCULAR HEMOGLOBIN 30.5 pg (28-32); MEAN CORPUSCULAR HGB CONC 32.5 g/dL (31-35); MONOCYTES # (AUTO) 1.3 (0.2-0.8); MONOCYTES % 17.5 % (4.4-11.3); NEUTROPHILS # (AUTO) 4.3 (2.1-6.9); NEUTROPHILS % 59.4 % (38.7-80.0); PLATELET COUNT 100 x10e3/uL (140-360); RED BLOOD COUNT 4.65 x10e6/uL (4.3-5.7); RED CELL DISTRIBUTION WIDTH 15.2 % (11.7-14.4)
[2021-07-28 17:23] LABS: INR 1.38; PROTHROMBIN TIME 17.2 seconds (11.9-14.5)
[2021-07-28 17:24] LABS: PARTIAL THROMBOPLASTIN TIME 33.7 seconds (23.8-35.5)
[2021-07-28 17:30] LABS: ANION GAP 10.1 mmol/L (8-16); CALCIUM 7.8 mg/dL (8.4-10.2); CREATININE, SERUM 1.53 mg/dL (0.72-1.25); MAGNESIUM 1.6 MG/DL (1.3-2.1); POTASSIUM 4.1 mmol/L (3.5-5.1)
[2021-07-28] MEDS ORDERED: FUROSEMIDE40 MG PO (17:31)
[2021-07-28 17:37] LABS: CREATINE KINASE MB 2.5 ng/mL (0-5.0)
== END 2021-07-28 18:36 | disposition home or self-care (01) ==
LOC: ER 16:59
DX: I48.92 Unspecified atrial flutter (principal); I10 Essential (primary) hypertension; I50.9 Heart failure, unspecified; K21.9 Gastro-esophageal reflux disease without esophagitis; K76.9 Liver disease, unspecified; F17.210 Nicotine dependence, cigarettes, uncomplicated
CPT/HCPCS: 36415; 71045; 80048; 82550; 82553; 83735; 83880; 84484; 85025; 85610; 85730; 93005; 99284; J7030

== ENCOUNTER 2021-09-03 09:29 | Inpatient (IN) | payer MEDICAID, SELFPAY ==
[~2021-09-03] VITALS: Ht 182.9 cm; Wt 97.1 kg
[~2021-09-03 09:29] MED LIST changes: +FUROSEMIDE40 MG PO
[2021-09-03] MEDS ORDERED: ONDANSETRON HCL INJ 2MG/ML 2ML 2 MG/ML VIAL IV STA (09:46)
[2021-09-03] MEDS ORDERED: SODIUM CHLORIDE 0.9% 1000ML 1,000 ML IV STA (09:46)
[2021-09-03] MEDS ORDERED: DICYCLOMINE HCL 20 MG/2 ML VIAL IM ONE (10:00)
[2021-09-03 10:09] LABS: BASOPHILS # (AUTO) 0.1 (0.0-0.1); BASOPHILS % 1.1 % (0.0-1.0); EOSINOPHILS # (AUTO) 0.2 (0.0-0.4); EOSINOPHILS % 2.6 % (0.0-6.0); HEMATOCRIT 42.2 % (38.2-49.6); HEMOGLOBIN 14.4 g/dL (14.0-18.0); LYMPHOCYTES # (AUTO) 1.1 (1.0-3.2); LYMPHOCYTES % 12.8 % (18.0-39.1); MEAN CORPUSCULAR HEMOGLOBIN 31.2 pg (28-32); MEAN CORPUSCULAR HGB CONC 34.1 g/dL (31-35); MEAN CORPUSCULAR VOLUME 91.5 fL (81-99); MONOCYTES # (AUTO) 0.9 (0.2-0.8); MONOCYTES % 10.2 % (4.4-11.3); NEUTROPHILS # (AUTO) 6.2 (2.1-6.9); PLATELET COUNT 115 x10e3/uL (140-360); RED BLOOD COUNT 4.61 x10e6/uL (4.3-5.7); RED CELL DISTRIBUTION WIDTH 14.8 % (11.7-14.4)
[2021-09-03 10:14] LABS: CLARITY,URINE CLEAR (CLEAR); COLOR,URINE YELLOW (YELLOW); KETONES,URINE NEGATIVE (NEGATIVE); LEUKOCYTE ESTERASE ,URINE NEGATIVE (NEGATIVE); NITRITE,URINE NEGATIVE (NEGATIVE); PROTEIN,URINE DIPSTICK NEGATIVE (NEGATIVE); URINE UROBILINOGEN 0.2 mg/dL (0.2 - 1)
[2021-09-03 10:23] LABS: BACTERIA,URINE FEW /HPF; EPITHELIAL CELLS,URINE FEW /LPF; RBC,URINE 0-5 /HPF (0-5); WBC,URINE (MAN) 0-5 /HPF (0-5)
[2021-09-03 10:35] LABS: ANION GAP 8.7 mmol/L (8-16); BLOOD UREA NITROGEN 14 mg/dL (7-26); BUN/CREATININE RATIO 12 (6-25); CALCIUM 8.4 mg/dL (8.4-10.2); CARBON DIOXIDE 28 mmol/L (22-29); CHLORIDE 102 mmol/L (98-107); EST GLOMERULAR FILTRATION RATE 62 ML/MIN (60-); GLUCOSE 102 mg/dL (74-118); POTASSIUM 3.7 mmol/L (3.5-5.1); SODIUM 135 mmol/L (136-144)
[2021-09-03] MEDS ORDERED: CYCLOBENZAPRINE10 MG PO (11:13)
[2021-09-03] MEDS ORDERED: GABAPENTIN300 MG PO (11:13)
[2021-09-03] MEDS ORDERED: Morphine 4mg Syringe 4 MG/ML INJ IV ONE (12:30)
[2021-09-03 12:33] LABS: ALANINE AMINOTRANSFERASE 28 IU/L (0-55); ALBUMIN 2.4 g/dL (3.5-5.0); ALBUMIN/GLOBULIN RATIO 0.4 (0.8-2.0); ALKALINE PHOSPHATASE 297 IU/L (40-150); AMYLASE 73 U/L (25-125); CREATINE KINASE 44 IU/L (30-200); LIPASE 31 U/L (8-78); MAGNESIUM 1.7 MG/DL (1.3-2.1)
[2021-09-03 12:52] LABS: INR 1.4; PROTHROMBIN TIME 17.8 seconds (11.9-14.5)
[2021-09-03 12:53] LABS: PARTIAL THROMBOPLASTIN TIME 33.4 seconds (23.8-35.5)
[2021-09-03] MEDS ORDERED: HEPARIN 25,000 UNIT DRIP IV ONE (13:27)
[2021-09-03] MEDS: HEPARIN 25,000 UNIT 1,000 UNIT in DEXTROSE 5% 250ML 250 ML IV SCH (13:30)
[2021-09-03] MEDS ORDERED: HEPARIN SOD (PORCINE) 5,000 UNIT/ML VIAL IV ONE (13:30)
[2021-09-03] MEDS ORDERED: Morphine 2mg Syringe 2 MG/ML SYR IV PRN (14:15)
[2021-09-03] MEDS ORDERED: MELATONIN 5 MG TABLET PO PRN (14:30)
[2021-09-03] MEDS ORDERED: DEXTROSE 50% SYRINGE 50 ML IV PRN (14:30)
[2021-09-03] MEDS ORDERED: POTASSIUM CHLORIDE 20 MEQ TAB CR PO PRN (14:30)
[2021-09-03] MEDS ORDERED: DOCUSATE SODIUM 100 MG CAP PO PRN (14:30)
[2021-09-03] MEDS ORDERED: TRAMADOL HCL 50 MG TAB PO PRN (14:30)
[2021-09-03] MEDS ORDERED: HYDRALAZINE HCL 20 MG/ML VIAL IV PRN (14:30)
[2021-09-03] MEDS ORDERED: LIDOCAINE 4% PATCH TP PRN (14:30)
[2021-09-03] MEDS ORDERED: MECLIZINE HCL 12.5 MG TAB PO PRN (14:30)
[2021-09-03] MEDS ORDERED: BENZONATATE 100 MG CAP PO PRN (14:30)
[2021-09-03] MEDS ORDERED: ACETAMINOPHEN 325 MG TAB PO PRN (14:30)
[2021-09-03] MEDS ORDERED: DIPHENHYDRAMINE HCL 25 MG CAP PO PRN (14:30)
[2021-09-03] MEDS ORDERED: ALBUTEROL/IPRATROPIUM 3 ML NEB NEB PRN (14:30)
[2021-09-03] MEDS: Morphine 2mg Syringe 2 MG/ML SYR IV PRN ×2 (15:10→20:14)
[2021-09-03] MEDS: ONDANSETRON HCL INJ 2MG/ML 2ML 2 MG/ML VIAL IV PRN (15:10)
[2021-09-03 15:45] VITALS: BP 134/101
[2021-09-03] MEDS: CEFTRIAXONE 1 GM in SODIUM CHLORIDE 0.9% 50ML 50 ML IV SCH (15:48)
[2021-09-03] MEDS: PROMETHAZINE 12.5MG/ NACL 0.9% 12.5 MG/50 ML BAG IV PRN ×2 (15:48→20:14)
[2021-09-03] MEDS ORDERED: SODIUM CHLORIDE 0.9% 250ML 250 ML ONE (15:56)
[2021-09-03 16:25] VITALS: BP 134/107
[2021-09-03 16:36] VITALS: BP 134/101
[2021-09-03] MEDS: METOPROLOL TARTRATE 50 MG TAB PO SCH (17:04)
[2021-09-03] MEDS: SUCRALFATE 1 GM/10 ML SUSP NG SCH ×2 (17:04→20:12)
[2021-09-03] MEDS: SPIRONOLACTONE 25 MG TAB PO SCH (17:04)
[2021-09-03] MEDS: FUROSEMIDE INJ 10 MG/ML 2 ML VIAL IV SCH (17:04)
[2021-09-03] MEDS ORDERED: IOPAMIDOL 370 MG/ML 200 ML INFUS..BTL INJ ONE (17:14)
[2021-09-03] MEDS ORDERED: SODIUM CHLORIDE 0.9% 50ML 50 ML ONE (17:14)
[2021-09-03 18:51] LABS: CREATINE KINASE MB 1.8 ng/mL (0-5.0)
[2021-09-03 20:00] VITALS: BP 137/103
[2021-09-03 21:00] VITALS: BP 137/103
[2021-09-04] VITALS (8 sets, daily range): BP systolic 109–135; BP diastolic 81–99
[2021-09-04] MEDS: Morphine 2mg Syringe 2 MG/ML SYR IV PRN ×5 (00:50→23:39)
[2021-09-04] MEDS: PROMETHAZINE 12.5MG/ NACL 0.9% 12.5 MG/50 ML BAG IV PRN ×5 (00:51→23:39)
[2021-09-04 01:37] LABS: CREATINE KINASE MB 1.3 ng/mL (0-5.0)
[2021-09-04 05:47] LABS: BASOPHILS # (AUTO) 0.1 (0.0-0.1); BASOPHILS % 1.2 % (0.0-1.0); EOSINOPHILS # (AUTO) 0.2 (0.0-0.4); EOSINOPHILS % 2.5 % (0.0-6.0); HEMATOCRIT 39.9 % (38.2-49.6); HEMOGLOBIN 13.8 g/dL (14.0-18.0); LYMPHOCYTES % 13.9 % (18.0-39.1); MEAN CORPUSCULAR HEMOGLOBIN 31.5 pg (28-32); MEAN CORPUSCULAR HGB CONC 34.6 g/dL (31-35); MEAN CORPUSCULAR VOLUME 91.1 fL (81-99); MONOCYTES # (AUTO) 0.9 (0.2-0.8); MONOCYTES % 12.3 % (4.4-11.3); NEUTROPHILS # (AUTO) 5.2 (2.1-6.9); NEUTROPHILS % 69.8 % (38.7-80.0); PLATELET COUNT 93 x10e3/uL (140-360); RED BLOOD COUNT 4.38 x10e6/uL (4.3-5.7); RED CELL DISTRIBUTION WIDTH 14.8 % (11.7-14.4)
[2021-09-04 06:03] LABS: ALBUMIN/GLOBULIN RATIO 0.4 (0.8-2.0); ANION GAP 13.1 mmol/L (8-16); CALCIUM 7.9 mg/dL (8.4-10.2); CREATININE, SERUM 1.1 mg/dL (0.72-1.25); POTASSIUM 4.1 mmol/L (3.5-5.1)
[2021-09-04 06:27] LABS: CREATINE KINASE MB 1.2 ng/mL (0-5.0)
[2021-09-04] MEDS ORDERED: PANTOPRAZOLE SOD 40 MG TABEC PO SCH (07:30)
[2021-09-04] MEDS: SUCRALFATE 1 GM/10 ML SUSP NG SCH ×4 (09:30→20:56)
[2021-09-04] MEDS: FUROSEMIDE INJ 10 MG/ML 2 ML VIAL IV SCH ×2 (09:30→16:42)
[2021-09-04] MEDS: CEFTRIAXONE 1 GM in SODIUM CHLORIDE 0.9% 50ML 50 ML IV SCH (09:31)
[2021-09-04] MEDS: METOPROLOL TARTRATE 50 MG TAB PO SCH ×2 (09:32→16:42)
[2021-09-04] MEDS: SPIRONOLACTONE 25 MG TAB PO SCH (09:32)
[2021-09-04] MEDS: HEPARIN 25,000 UNIT 1,000 UNIT in DEXTROSE 5% 250ML 250 ML IV SCH (15:01)
[2021-09-05] VITALS (7 sets, daily range): BP systolic 116–156; BP diastolic 80–109
[2021-09-05] MEDS: PROMETHAZINE 12.5MG/ NACL 0.9% 12.5 MG/50 ML BAG IV PRN (04:08)
[2021-09-05] MEDS: Morphine 2mg Syringe 2 MG/ML SYR IV PRN ×2 (04:09→20:25)
[2021-09-05 05:32] LABS: BASOPHILS # (AUTO) 0.1 (0.0-0.1); BASOPHILS % 1.6 % (0.0-1.0); EOSINOPHILS # (AUTO) 0.2 (0.0-0.4); HEMATOCRIT 42.3 % (38.2-49.6); HEMOGLOBIN 14.1 g/dL (14.0-18.0); LYMPHOCYTES # (AUTO) 1.1 (1.0-3.2); LYMPHOCYTES % 21.9 % (18.0-39.1); MEAN CORPUSCULAR HEMOGLOBIN 31.1 pg (28-32); MEAN CORPUSCULAR HGB CONC 33.3 g/dL (31-35); MEAN CORPUSCULAR VOLUME 93.4 fL (81-99); MONOCYTES # (AUTO) 0.6 (0.2-0.8); MONOCYTES % 12.1 % (4.4-11.3); PLATELET COUNT 95 x10e3/uL (140-360); RED BLOOD COUNT 4.53 x10e6/uL (4.3-5.7); RED CELL DISTRIBUTION WIDTH 14.7 % (11.7-14.4)
[2021-09-05 05:50] LABS: ALBUMIN/GLOBULIN RATIO 0.4 (0.8-2.0); CALCIUM 8.1 mg/dL (8.4-10.2); CREATININE, SERUM 1.04 mg/dL (0.72-1.25)
[2021-09-05] MEDS: CEFTRIAXONE 1 GM in SODIUM CHLORIDE 0.9% 50ML 50 ML IV SCH (09:36)
[2021-09-05] MEDS: SUCRALFATE 1 GM/10 ML SUSP NG SCH ×4 (09:36→20:33)
[2021-09-05] MEDS: SPIRONOLACTONE 25 MG TAB PO SCH (09:36)
[2021-09-05] MEDS: FUROSEMIDE INJ 10 MG/ML 2 ML VIAL IV SCH ×2 (09:36→16:11)
[2021-09-05] MEDS: METOPROLOL TARTRATE 50 MG TAB PO SCH ×2 (09:37→16:11)
[2021-09-05] MEDS: HEPARIN 25,000 UNIT 1,000 UNIT in DEXTROSE 5% 250ML 250 ML IV SCH (14:00)
[2021-09-05] MEDS: APIXABAN 5 MG TABLET PO SCH (16:11)
[2021-09-05] MEDS: ONDANSETRON HCL INJ 2MG/ML 2ML 2 MG/ML VIAL IV PRN (20:25)
[2021-09-06] VITALS: BP_SYST 145; BP_DIAS 102; BP_DIAS 106
[2021-09-06] MEDS: Morphine 2mg Syringe 2 MG/ML SYR IV PRN ×2 (01:10→05:42)
[2021-09-06] MEDS: ONDANSETRON HCL INJ 2MG/ML 2ML 2 MG/ML VIAL IV PRN (01:10)
[2021-09-06 04:00] VITALS: BP 139/106
[2021-09-06] MEDS: SUCRALFATE 1 GM/10 ML SUSP NG SCH ×2 (07:30→13:25)
[2021-09-06 08:00] VITALS: BP 139/106
[2021-09-06 08:36] VITALS: BP 160/97
[2021-09-06] MEDS: SPIRONOLACTONE 25 MG TAB PO SCH (09:00)
[2021-09-06] MEDS: METOPROLOL TARTRATE 50 MG TAB PO SCH (09:00)
[2021-09-06] MEDS: FUROSEMIDE INJ 10 MG/ML 2 ML VIAL IV SCH (09:00)
[2021-09-06] MEDS: CEFTRIAXONE 1 GM in SODIUM CHLORIDE 0.9% 50ML 50 ML IV SCH (09:00)
[2021-09-06] MEDS: APIXABAN 5 MG TABLET PO SCH (13:23)
[2021-09-06] MEDS ORDERED: ELIQUIS5 MG PO (13:34)
[2021-09-06] MEDS ORDERED: ONDANSETRON HCL 4 MG ORAL DISINTEGRATING TAB PO PRN (13:45)
[2021-09-06] MEDS ORDERED: PANTOPRAZOLE SOD 40 MG TABEC PO SCH (21:00)
== END 2021-09-06 13:57 | disposition home or self-care (01) | DRG 432 ==
LOC: ER 09:39 → ERHOLD 14:07 → MED/SURG2 15:31
PROVIDERS: ADMIT Internal Medicine; ATTEND Internal Medicine
DX: K70.31 Alcoholic cirrhosis of liver with ascites (principal); I81 Portal vein thrombosis; B19.20 Unspecified viral hepatitis C without hepatic coma; Z79.891 Long term (current) use of opiate analgesic; R16.1 Splenomegaly, not elsewhere classified; F17.200 Nicotine dependence, unspecified, uncomplicated; R12 Heartburn; F10.21 Alcohol dependence, in remission; I11.0 Hypertensive heart disease with heart failure; I50.9 Heart failure, unspecified; Z20.822 Contact with and (suspected) exposure to COVID-19
CPT/HCPCS: 36415; 74177; 76700; 80053; 81001; 81025; 82105; 82140; 82150; 82378; 82550; 82553; 83690; 83735; 84152; 84165; 84484; 85025; 85610; 85730; 86301; 93005; 99284; J0500; J0696; J1644; J1940; J2270; J2405; J2550; J7030; J7050; Q9967; U0002

== ENCOUNTER 2021-10-09 12:44 | Emergency (ER) | payer SELFPAY ==
[~2021-10-09] VITALS: Ht 182.9 cm; Wt 97.1 kg
[~2021-10-09 12:44] MED LIST changes: +CYCLOBENZAPRINE10 MG PO; +ELIQUIS5 MG PO; +GABAPENTIN300 MG PO
== END 2021-10-09 13:35 | disposition home or self-care (01) ==
LOC: ER 13:13
DX: I81 Portal vein thrombosis (principal); K74.60 Unspecified cirrhosis of liver
CPT/HCPCS: 99283

== ENCOUNTER 2021-10-15 07:57 | Emergency (ER) | payer MEDICAID ==
[~2021-10-15] VITALS: Ht 182.9 cm; Wt 97.1 kg
[2021-10-15] MEDS ORDERED: Morphine 4mg Syringe 4 MG/ML INJ IV ONE (08:15)
[2021-10-15] MEDS ORDERED: SODIUM CHLORIDE 0.9% 1000ML 1,000 ML IV SCH (08:15)
[2021-10-15 08:44] LABS: BASOPHILS # (AUTO) 0.1 (0.0-0.1); BASOPHILS % 1.7 % (0.0-1.0); EOSINOPHILS # (AUTO) 0.2 (0.0-0.4); EOSINOPHILS % 2.6 % (0.0-6.0); HEMOGLOBIN 16.1 g/dL (14.0-18.0); LYMPHOCYTES # (AUTO) 1.2 (1.0-3.2); LYMPHOCYTES % 13.7 % (18.0-39.1); MEAN CORPUSCULAR HGB CONC 33.5 g/dL (31-35); MEAN CORPUSCULAR VOLUME 92.5 fL (81-99); MONOCYTES % 12.2 % (4.4-11.3); NEUTROPHILS # (AUTO) 5.8 (2.1-6.9); NEUTROPHILS % 69.2 % (38.7-80.0); PLATELET COUNT 115 x10e3/uL (140-360); RED BLOOD COUNT 5.19 x10e6/uL (4.3-5.7); RED CELL DISTRIBUTION WIDTH 15.2 % (11.7-14.4)
[2021-10-15] MEDS ORDERED: TETANUS/DIPHTHERIA TOX ADULT 0.5 ML SYR IM ONE (09:00)
[2021-10-15 09:37] LABS: CLARITY,URINE CLEAR (CLEAR); COLOR,URINE YELLOW (YELLOW); KETONES,URINE NEGATIVE (NEGATIVE); LEUKOCYTE ESTERASE ,URINE NEGATIVE (NEGATIVE); NITRITE,URINE NEGATIVE (NEGATIVE); PROTEIN,URINE DIPSTICK NEGATIVE (NEGATIVE); URINE UROBILINOGEN 1 mg/dL (0.2 - 1)
[2021-10-15 09:38] LABS: BACTERIA,URINE FEW /HPF; EPITHELIAL CELLS,URINE FEW /LPF; WBC,URINE (MAN) 0-5 /HPF (0-5)
[2021-10-15 10:15] LABS: ALBUMIN 2.2 g/dL (3.5-5.0); ALBUMIN/GLOBULIN RATIO 0.4 (0.8-2.0); ANION GAP 14.4 mmol/L (8-16); CALCIUM 7.8 mg/dL (8.4-10.2); CREATININE, SERUM 1.2 mg/dL (0.72-1.25); POTASSIUM 3.4 mmol/L (3.5-5.1)
[2021-10-15] MEDS ORDERED: IOPAMIDOL 370 MG/ML 200 ML INFUS..BTL INJ ONE (10:38)
[2021-10-15] MEDS ORDERED: SODIUM CHLORIDE 0.9% 50ML 50 ML ONE (10:38)
[2021-10-15] MEDS ORDERED: Morphine 4mg Syringe 4 MG/ML INJ IV NR (11:15)
[2021-10-15] MEDS: METOPROLOL TARTRATE INJ 1 MG/ML VIAL IV PRN ×2 (13:27→13:41)
[2021-10-15] MEDS ORDERED: ACETAMINOPHEN-1 EAC4 PO ×2 (13:55→16:29)
== END 2021-10-15 14:15 | disposition home or self-care (01) ==
LOC: ER 08:10
DX: R07.9 Chest pain, unspecified (principal); I48.91 Unspecified atrial fibrillation; I10 Essential (primary) hypertension; S32.019A Unspecified fracture of first lumbar vertebra, initial encounter for closed fracture; W11.XXXA Fall on and from ladder, initial encounter; M25.552 Pain in left hip; S40.212A Abrasion of left shoulder, initial encounter; I81 Portal vein thrombosis; K74.60 Unspecified cirrhosis of liver; Z20.822 Contact with and (suspected) exposure to COVID-19
CPT/HCPCS: 36415; 70450; 71260; 72125; 72128; 72131; 74177; 80053; 81001; 84484; 85025; 86850; 86900; 90714; 99284; J2270; J7030; Q9967; U0002; 93005